=== PATIENT | male | born 1990 | race Caucasian/White ===

== ENCOUNTER 2018-11-04 00:09 | Emergency (ER) | payer SELFPAY ==
[2018-11-04 00:09] VITALS: BP 120/74; PULSE 82; RESP 16; TEMP 36.7; O2SAT 100; BMI 18.3
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
[2018-11-04 02:10] VITALS: PULSE 98; RESP 18; O2SAT 99
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
[2018-11-04 03:13] VITALS: PULSE 99; RESP 18; O2SAT 98
== END 2018-11-04 03:19 | disposition home or self-care (01) ==
LOC: ED 02:19
PROVIDERS: Emergency Provider Emergency Medicine; Family Provider Family Medicine; PCP Family Medicine
DX: S02.2XXA Fracture of nasal bones, initial encounter for closed fracture (principal); S42.001A Fracture of unspecified part of right clavicle, initial encounter for closed fracture; S06.9X9A Unspecified intracranial injury with loss of consciousness of unspecified duration, initial encounter; Y04.8XXA Assault by other bodily force, initial encounter; Y93.9 Activity, unspecified; Y92.9 Unspecified place or not applicable; Y99.9 Unspecified external cause status; F10.129 Alcohol abuse with intoxication, unspecified
CPT/HCPCS: 70450; 70486; 73030; 99283

== ENCOUNTER 2024-05-07 22:08 | Emergency (ER) | payer MEDICAID, SELFPAY ==
[2024-05-07 22:09] VITALS: BP 116/73; PULSE 99; RESP 16; TEMP 36.7; O2SAT 96; BMI 22.2
--- NOTE | 2024-05-07 22:20 | CT_ITS ---
EXAM: CT HEAD WITHOUT INTRAVENOUS CONTRAST CLINICAL INDICATION: trauma TECHNIQUE: Multiple axial images were obtained of the head without intravenous contrast. This CT exam was performed using one or more of the following dose reduction techniques: automated exposure control, adjustment of the mA and/or kV according to patient size, and/or use of iterative reconstruction technique. RADIATION DOSE: Total DLP: 846.73 mGy-cm. COMPARISON: Nonenhanced cranial CT of 11/04/2018. FINDINGS: BRAIN AND EXTRA-AXIAL SPACES: Unremarkable. No intra- or extra-axial hemorrhage. No evidence of acute infarct. No intracranial mass or mass effect. There is preservation of the bosch/white matter interface. Posterior fossa structures are unremarkable. Ventricles are appropriate for age. No hydrocephalus. Basal cisterns are patent. BONES/JOINTS: Previous noted nasal bone fracture as healed with the fracture fragments in relative anatomic alignment. No discrete lytic or blastic abnormalities. No acute linear or depressed skull fracture. SOFT TISSUES: Unremarkable. No scalp hematoma. SINUSES: Incidental right maxillary retention cysts are present. No paranasal sinus air-fluid levels. MASTOID AIR CELLS: Unremarkable. Clear. ORBITS: Visualized globes, extraocular muscles, optic nerves and retrobulbar fat appear unremarkable. CT/Brain/Head without Contrast IMPRESSION: No acute findings in the head/brain. No skull fracture or acute intracranial hemorrhage. Electronically Signed: Amari Faith MD at 23:20 EST ,
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
[2024-05-08 00:23] VITALS: BP 107/73; PULSE 73; RESP 18; TEMP 36.2; O2SAT 99
== END 2024-05-08 00:24 | disposition home or self-care (01) ==
PROVIDERS: Emergency Provider Emergency Medicine; PCP Family Medicine; Referring Provider Emergency Medicine; Visit Provider Emergency Medicine
DX: S22.32XA Fracture of one rib, left side, initial encounter for closed fracture (principal); S00.83XA Contusion of other part of head, initial encounter; S10.91XA Abrasion of unspecified part of neck, initial encounter; Y04.8XXA Assault by other bodily force, initial encounter; Z79.899 Other long term (current) drug therapy

== ENCOUNTER 2024-10-30 12:18 | Emergency (ER) | payer BC, MEDICAID, SELFPAY ==
[2024-10-30 12:19] VITALS: BP 112/67; PULSE 76; RESP 14; TEMP 36.6; O2SAT 98; BMI 19.8
--- NOTE | 2024-10-30 13:34 | EX.ED.VIS.PS ---
HPI HPI - Psych History of Present Illness Chief Complaint: Suicidal Informant: patient Onset/Context/Timing Onset: Days (3) Context: Sudden Onset Timing: Intermittent Worsened by: Situational factors Relieved by: nothing Associated Symptoms Associated Symptoms - Psych: Positive for Depressed and Suicidal Thoughts; Negative for Confusion, Paranoia, Visual Hallucinations or Auditory Hallucinations Specific plan (suicidal thought): Hanging himself Narrative Narrative: Patient struggles with depression and suicidal ideations that have been getting worse over the past 3 days. Patient states they have been intermittent. Patient states he had a dream about his dad. Patient states it is brought on his suicidal thoughts. Patient states he was able to get through the day and then had another dream about his dad at night. Patient states that he been having thoughts of hanging himself. Patient states he will not do that but he has been having more thoughts. Patient denies any paranoid ideations. Patient denies any visual or auditory hallucinations. [facility] Medical History (Updated 10/30/24 @ 16:[address] Steven Calderon, ) Bipolar disorder Depression Anxiety Home Medications ?Medication ?Instructions ?Recorded ?Last Taken ?Type alprazolam 0.25 mg tablet 0.25 mg PO BID 05/07/24 Unknown History buprenorphine 8 mg-naloxone 2 mg 2 ea sublingual DAILY 05/07/24 Unknown History sublingual film fluoxetine 40 mg capsule 40 mg PO DAILY 05/07/24 Unknown History gabapentin 800 mg tablet 800 mg PO TID 05/07/24 Unknown History Allergy/AdvReac Type Severity Reaction Status Date / Time No Known Allergies Allergy Verified 10/30/24 12:19 Social History (Updated 10/30/24 @ 13:[address] Steven Calderon, ) Smoking Status: Unknown if ever smoked Electronic Cigarette Use: with nicotine ROS ROS ED Constitutional Constitutional ED: Denies chills or fever(s) Eyes Eyes: Denies blurry vision or change in vision ENT ENT ED: Denies rhinorrhea or sore throat Cardiovascular Cardiovascular: Denies chest pain or palpitations Respiratory/Chest Respiratory/Chest: Denies cough or dyspnea Gastrointestinal Gastrointestinal: Denies nausea or vomiting Genitourinary Genitourinary ED: Denies dysuria or hematuria Musculoskeletal Musculoskeletal: Denies back pain or neck pain Integumentary Denies abscess or rash Neurologic Neurologic: Denies headache(s) or weakness Psychiatric Psychiatric: Reports suicidal ideation and suicidal thoughts Allergic/Immunologic Allergic/Immunologic ED: Denies mouth swelling or urticaria EXAM Physical Exam Const Vital Signs: 10/30/24 12:19 10/30/24 14:14 Temperature 98 F Temperature Source Temporal Pulse Rate 76 78 Respiratory Rate 14 16 Blood Pressure 112/67 134/78 H Blood Pressure Mean 82 96 Pulse Ox 98 98 Oxygen Delivery Method Room Air Room Air Positive well nourished and well developed General Appearance ED: well developed and NAD HEENT Reports moist mucous membranes normocephalic and atraumatic Neck supple and no JVD Resp normal respiratory effort and clear to auscultation bilaterally Cardio Rate: regular rate Rhythm: regular rhythm GI non-tender and non-distended Neuro oriented x3, CN's II-XII intact bilaterally and no sensory deficits noted [place] Coma Scale: document GCS findings Spontaneous Obeys Commands Oriented 15 Sensorium / Orientation: alert Motor Exam: strength 5/5 throughout, muscle tone normal throughout and general weakness Psych Appearance: grossly normal Attitude: calm Speech: normal speech Mood & Affect: depressed and tearful Thought Content: suicidality, No delusion(s) and No hallucination(s) MDM MDM MDM Narrative Medical decision making narrative: Medical screening labs will be obtained. CBC will be obtained to assess for leukocytosis and anemia. Basic metabolic profile will be obtained to assess for electrolyte abnormality and renal function. Serum alcohol level will be obtained to assess for alcohol intoxication. Urine drug screen will be obtained to assess for substance abuse. Lab Data Attestation: I reviewed the patient's lab results. Lab results narrative: CBC was reviewed. There is a slight anemia with a hemoglobin of 12.8 and hematocrit of 39.7. Basic metabolic profile was reviewed and was essentially within normal limits. Serum alcohol level was reviewed and was less than 10.1. Urine tox screen was reviewed and was positive for amphetamines and buprenorphine. Labs: Laboratory Results - last 24 hr 10/30/24 10/30/24 13:03 13:05 WBC 3.8 L RBC 4.39 L Hgb 12.8 L Hct 39.7 L MCV 90.4 MCH 29.2 MCHC 32.2 RDW Std Deviation 41.8 RDW Coeff of Sheela 12.5 Plt Count 253 MPV 10.5 Immature Gran % (Auto) 0.300 Neut % (Auto) 58.4 Lymph % (Auto) 30.9 [place] % (Auto) 7.5 Eos % (Auto) 2.1 Baso % (Auto) 0.8 Absolute Neuts (auto) 2.2 Absolute Lymphs (auto) 1.16 Nucleated RBC % 0 Sodium 143 Potassium 4.2 Chloride 104 Carbon Dioxide 28.3 Anion Gap 11 BUN 9 Creatinine 0.86 Estim Creat Clear Calc 104.43 Est GFR (MDRD) Non-Af 117 BUN/Creatinine Ratio 10.9 Glucose 83 Calcium 9.2 Urine Opiates Screen NEGATIVE U Buprenorphine Qual PRESUMPTIVE POSITIVE Ur Oxycodone Screen NEGATIVE Urine Methadone Screen NEGATIVE Urine Fentanyl Screen NEGATIVE Ur Barbiturates Screen NEGATIVE Ur Phencyclidine Scrn NEGATIVE Ur Amphetamines Screen PRESUMPTIVE POSITIVE U Benzodiazepines Scrn NEGATIVE Urine Cocaine Screen NEGATIVE U Cannabinoids Screen NEGATIVE Ethyl Alcohol < 10.1 Treatment and Re-Evaluation Narrative: Suicide precautions were maintained. Patient was evaluated by social organization professor. janitorial maintenance worker feels the patient can be discharged home and arrange for follow-up as an outpatient. I am agreeable with this. Patient was instructed to follow-up next week. Patient and family understand and are agreeable with the plan. All questions were answered. Discharge Plan Triage Chief Complaint: Suicidal ED Provider: Steven Calderon Dx/Rx/DC Orders Clinical Impression: Depression, Anxiety Instructions: ED Depression Prescriptions: No Action fluoxetine 40 mg capsule 40 mg PO DAILY alprazolam 0.25 mg tablet 0.25 mg PO BID gabapentin 800 mg tablet 800 mg PO TID buprenorphine-naloxone 8-2 mg film 2 ea sublingual DAILY Primary Care Provider: Roman Ulrich Referrals: Roman Ulrich MD [Primary Care Provider] - 3-5 Days Print Language: Irish Disposition Disposition: Home, Self Care
[2024-10-30 13:53] LABS: Hematocrit 39.7 % (40-54); Hemoglobin 12.8 g/dL (13.0-16.5); Immature Granulocytes Count 0.010 X10^3/uL (0.0-0.0); Mean Corp Hgb Conc 32.2 g/dL (32-36); Mean Corpuscular Volume 90.4 fL (80-94); Mean Platelet Vol. 10.5 fl (6.2-12.0); NRBC Flagged by Analyzer 0 % (0-5); Platelet Count 253 K/mm3 (150-450); RBC Distribution Width CV 12.5 % (11.6-14.6); RBC Distribution Width SD 41.8 fl (35.1-43.9); Red Blood Count 4.39 M/mm3 (4.6-6.2); White Blood Count 3.8 K/mm3 (4.4-11.0)
[2024-10-30 14:14] VITALS: BP 134/78; PULSE 78; RESP 16; O2SAT 98
[2024-10-30 14:22] LABS: Anion Gap 11 (5-15); BUN 9 mg/dL (4-19); BUN/Creat Ratio 10.9 RATIO (10-20); Calcium,Total 9.2 mg/dL (7.6-11.0); Carbon Dioxide 28.3 mmol/L (21.0-32.0); Chloride 104 mmol/L (98-108); Estimated Creatinine Clearance 104.43 ml/min (50-250); Glucose 83 mg/dL (70-99); Potassium 4.2 mmol/L (3.3-5.1)
[2024-10-30 14:23] LABS: Alcohol, Blood (Medical)-Serum < 10.1 mg/dL (<=10.0)
[2024-10-30 15:37] LABS: Barbiturate Urine NEGATIVE (< 200 ng/mL); Benzodiazepine Urine NEGATIVE (< 200 ng/mL); PCP Urine NEGATIVE (< 25 ng/mL); THC Urine NEGATIVE (< 50 ng/mL)
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
[2024-10-30 16:25] VITALS: BP 111/71; PULSE 81; RESP 14; TEMP 36.6; O2SAT 98
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
--- NOTE | 2024-10-31 20:30 | CM.ED ---
Social Work Unsuccessful 24 hour phone contact with patient per Safety Plan protocol. No answer. Ammonia Box Operator left a message with her name and number and requested a return call (19:28 and again 20:32) ALVARO Diallo, GUEST SERVICE TEAM LEADER
--- NOTE | 2024-11-01 17:25 | CM.ED ---
Social Work research worker kitchen made an unsuccessful phone contact with patient per on-going efforts per safety plan protocol. Highwall Drill Operator left a message with her name and number and requested a return call. (14:10) research worker kitchen made an unsuccessful phone contact with patient per on-going efforts per safety plan protocol. Highwall Drill Operator left a message with her name and number and requested a return call. (16:47) Highwall Drill Operator made phone contact with [facility]. Highwall Drill Operator requested a welfare check for patient due to unanswered calls/no return calls to Highwall Drill Operator (16:47) Highwall Drill Operator received a call from law enforcement who made successful phone contact with patient and put patient on the phone. Highwall Drill Operator explained why she was calling. Patient stated he feels safe, stated he's been taking his medication and has been sleeping a lot and is looking forward to going back to work tomorrow. Patient denied any current suicidal ideation, and confirmed he is safe. Highwall Drill Operator reviewed crisis numbers with patient and also advised patient he can come back to the ED if he ever feels like he needs to. No other concerns/issues identified. (17:27) Heather Lock, THERMOSCREW OPERATOR, STRUCTURAL IRON WORKER
== END 2024-10-30 16:26 | disposition home or self-care (01) ==
PROVIDERS: Emergency Provider Emergency Medicine; PCP Family Medicine; Referring Provider Emergency Medicine; Visit Provider Emergency Medicine
DX: F32.A Depression, unspecified (principal); R45.851 Suicidal ideations; F41.9 Anxiety disorder, unspecified; F17.290 Nicotine dependence, other tobacco product, uncomplicated; Z79.899 Other long term (current) drug therapy
CPT/HCPCS: 80048; 80307; 82077; 85025; 99283

== ENCOUNTER 2025-02-01 03:57 | Emergency (ER) | payer BC, MEDICAID, SELFPAY ==
[2025-02-01 03:57] VITALS: BP 157/95; PULSE 67; RESP 18; TEMP 36.6; O2SAT 98; BMI 18.8
[2025-02-01 04:00] VITALS: BP 144/100; PULSE 72; RESP 18; TEMP 36.6; O2SAT 100
--- NOTE | 2025-02-01 04:24 | EX.ED.DYSGE1 ---
HPI History of Present Illness Chief Complaint: Other, Pain/Inj Informant: patient and parent Narrative Narrative: Patient is a 34-year-old male with past medical history of anxiety and depression as well as bipolar disorder. He states there was a lump above his tooth that opened up yesterday and drained foul tasting discharge. He states he then noticed a lesion and swelling along his lower lip as well as a lesion along the cheek and tongue. He denies any known sick contacts. He denies any difficulty breathing or swallowing. He states that he is concerned that these areas are infectious and with this presents for evaluation. [facility] Medical History (Updated 02/01/25 @ 08:[address] Wallace Browne, DO) Bipolar disorder Depression Anxiety Home Medications ?Medication ?Instructions ?Recorded ?Last Taken ?Type alprazolam 0.25 mg tablet 0.25 mg PO BID 05/07/24 Unknown History buprenorphine 8 mg-naloxone 2 mg 2 ea sublingual DAILY 05/07/24 Unknown History sublingual film fluoxetine 40 mg capsule 40 mg PO DAILY 05/07/24 Unknown History gabapentin 800 mg tablet 800 mg PO TID 05/07/24 Unknown History MAGIC MOUTH WASH (BMX) 180 mL 10 ml PO 4X/DAY PRN mouth pain 02/01/25 Unknown Rx suspension #180 mL amoxicillin 875 mg-potassium 1 tab PO BID 10 days #20 tabs 02/01/25 Unknown Rx clavulanate 125 mg tablet duloxetine 60 mg capsule,delayed 60 mg PO DAILY 02/01/25 Unknown History release Allergy/AdvReac Type Severity Reaction Status Date / Time No Known Allergies Allergy Verified 02/01/25 03:57 Social History (Updated 10/30/24 @ 13:[address] Steven Calderon, DO) Smoking Status: Current every day smoker tobacco type: e-cigarettes Electronic Cigarette Use: with nicotine ROS ROS ED Constitutional Constitutional ED: Denies chills or fever(s) ENT ENT ED: Reports sore throat and other Details: Positive dental pain and oral lesions Cardiovascular Cardiovascular: Denies chest pain Respiratory/Chest Respiratory/Chest: Denies cough or dyspnea Gastrointestinal Gastrointestinal: Denies abdominal pain, diarrhea, nausea or vomiting Musculoskeletal Musculoskeletal: Denies myalgias Integumentary Denies rash Neurologic Neurologic: Denies headache(s) Psychiatric Psychiatric: Reports anxiety and depression Allergic/Immunologic Allergic/Immunologic ED: Denies mouth swelling, tongue swelling or urticaria EXAM Physical Exam Const Vital Signs: 02/01/25 03:57 02/01/25 03:57 02/01/25 04:00 Temperature 98 F 98 F Temperature Source Oral Oral Pulse Rate 67 72 Respiratory Rate 18 18 Respiratory Effort Normal Non-Labored Respiratory Pattern Normal Blood Pressure 157/95 H 144/100 H Blood Pressure Mean 115 114 Pulse Ox 98 100 Oxygen Delivery Method Room Air Room Air 02/01/25 04:27 Temperature 98.2 F Temperature Source Pulse Rate 60 Respiratory Rate 16 Respiratory Effort Respiratory Pattern Blood Pressure 139/89 H Blood Pressure Mean 105 Pulse Ox 100 Oxygen Delivery Method Positive well nourished and well developed General Appearance ED: well developed HEENT HEENT Narrative: Multiple dental caries are present. In the left upper gingiva there is a small area of soft tissue swelling with scant amount of drainage consistent with dental abscess. No airway edema or compromise No signs of ANUG Patient has a circular slightly raised and whitish/yellow lesion to the left inner cheek along the base of the right tongue most consistent with aphthous ulcer There is also a lesion along the inner aspect of the midportion of the lower lip. This appears that at 1 point he bit his lip and now there is faint swelling and surrounding discoloration concerning for developing infection but no obvious abscess formation. Eyes PERRL and EOMs intact bilaterally General Eye ED: Negative for scleral icterus Neck supple Neck Narrative: No brawny edema in the submental space to suggest Andrae's angina Resp normal respiratory effort and clear to auscultation bilaterally Cardio regular rate and regular rhythm Back/Spine Back/Spine Narrative: Positive dextroscoliosis Extremity normal to inspection Neuro oriented x3, CN's II-XII intact bilaterally and no sensory deficits noted Sensorium / Orientation: alert Motor Exam: strength 5/5 throughout Psych Psych Narrative: Patient has a depressed/flat affect consistent history of bipolar disorder and schizophrenia Skin Skin Narrative: Patient has erythematous changes across the extensor portions of his hand as well as lower leg consistent with psoriasis which he states is chronic in nature No involvement of the palms or soles MDM MDM MDM Narrative Medical decision making narrative: Patient arrived to the ER hypertensive but otherwise with stable vitals. His history and exam is consistent with dental abscess as well as simple aphthous ulcer. He has not findings of ANUG or Andrae's angina. He does not have changes to the posterior pharynx to suggest peritonsillar abscess or retropharyngeal abscess and therefore I do not feel the need for laboratory studies or imaging. Based on the fact the abscess has spontaneously drained I do not feel the need for incision and drainage in the ER. Patient simply requires antibiotics to cover for underlying infection as well as treatment with Magic wealth wash to allow the ulcers to heal spontaneously. This plan of care was discussed with the patient and he is agreeable to it. Therefore as he does not have findings concerning for systemic infection Andrae's angina or ANUG and there are no obvious findings to suggest airway compromise or peritonsillar abscess or epiglottitis do not feel the need for further intervention and he is otherwise safe for discharge History & Record Review Discussion w/independent historian: Patient and Family Discharge Plan Triage Chief Complaint: Other, Pain/Inj ED Provider: Wallace Browne Dx/Rx/DC Orders Clinical Impression: Dental abscess, Aphthous ulcer of mouth, Anxiety, Depression, Bipolar disorder Instructions: Dental Abscess, ED Canker Sore Prescriptions: New amoxicillin-pot clavulanate 875-125 mg tablet 1 tab PO BID 10 Days Qty: 20 0RF MAGIC MOUTH WASH (BMX) 180 mL suspension 10 ml PO 4X/DAY PRN (Reason: mouth pain) Qty: 180 1RF Rx Instructions: diphenhydramine 12.5 mg/5 mL oral liquid 60 mL; aluminum-mag hydroxide-simethicone 400 mg-400 mg-40 mg/5 mL oral susp 60 mL; Lidocaine Viscous 2 % mucosal solution 60 mL; Per 180 mL No Action duloxetine 60 mg capsule,delayed release(DR/EC) 60 mg PO DAILY fluoxetine 40 mg capsule 40 mg PO DAILY alprazolam 0.25 mg tablet 0.25 mg PO BID gabapentin 800 mg tablet 800 mg PO TID buprenorphine-naloxone 8-2 mg film 2 ea sublingual DAILY Primary Care Provider: Roman Ulrich Referrals: Roman Ulrich MD [Primary Care Provider, Medical] Activity Restrictions/Additional Instructions: Your history and exam is consistent with a dental abscess and now developing right lower lip infection. Take the antibiotic/Augmentin as directed to help resolve this. It would typically take 2 to 3 days before the antibiotic takes effect. The other lesions are known as aphthous ulcers and use the Magic mouthwash to help with pain from them. Return to the ER should you have any further concerns or worsening of symptoms Print Language: Yi Disposition Disposition: Home, Self Care Discharge Date/Time: 02/01/25 04:42
[2025-02-01 04:27] VITALS: BP 139/89; PULSE 60; RESP 16; TEMP 36.8; O2SAT 100
[2025-02-01] MEDS: BMX LIQUID 180 ML 15 ML PO (04:39)
== END 2025-02-01 04:42 | disposition home or self-care (01) ==
PROVIDERS: Emergency Provider Emergency Medicine; PCP Family Medicine; Visit Provider Emergency Medicine
DX: K04.7 Periapical abscess without sinus (principal); F31.9 Bipolar disorder, unspecified; K12.0 Recurrent oral aphthae; K02.9 Dental caries, unspecified; F41.9 Anxiety disorder, unspecified; F17.290 Nicotine dependence, other tobacco product, uncomplicated; Z79.899 Other long term (current) drug therapy
CPT/HCPCS: 99283

== ENCOUNTER 2025-02-16 11:41 | Emergency (ER) | payer BC, MEDICAID, SELFPAY ==
[2025-02-16 11:43] VITALS: PULSE 54; RESP 18; TEMP 37.1; O2SAT 100; BMI 19.1
[2025-02-16 11:47] VITALS: BP 128/85
--- NOTE | 2025-02-16 11:49 | CT_ITS ---
PROCEDURE: CT/Abdomen/Pelvis W IV Cont ONLY
--- NOTE | 2025-02-16 11:50 | ED.VIS.GI ---
HPI HPI - GI History of Present Illness Chief Complaint: Abd Pain Informant: patient and EMS Narrative Narrative: Patient is a 34-year-old male with a history of bipolar disorder and paranoid schizophrenia presenting with abdominal pain, diarrhea, and emesis. - Symptoms began 3d ago with n/v/d, with abdominal pain starting today. - Reports 5-10 episodes of watery diarrhea total since onset, with the last bowel movement 2 days ago. - Denies hematochezia or hematemesis. - Denies fever. - Denies chest pain. - Denies pain radiating to the back or testicles. - Denies any prior abdominal surgeries. States has history of kidney stones and some of this pain felt similar to that but different. - Taking gabapentin. PFSH PFS Medical History Bipolar disorder Depression Anxiety Home Medications ?Medication ?Instructions ?Recorded ?Last Taken ?Type alprazolam 0.25 mg tablet 0.25 mg PO BID 05/07/24 Unknown History buprenorphine 8 mg-naloxone 2 mg 2 ea sublingual DAILY 05/07/24 Unknown History sublingual film fluoxetine 40 mg capsule 40 mg PO DAILY 05/07/24 Unknown History gabapentin 800 mg tablet 800 mg PO TID 05/07/24 Unknown History MAGIC MOUTH WASH (BMX) 180 mL 10 ml PO 4X/DAY PRN mouth pain 02/01/25 Unknown Rx suspension #180 mL amoxicillin 875 mg-potassium 1 tab PO BID 10 days #20 tabs 02/01/25 Unknown Rx clavulanate 125 mg tablet duloxetine 60 mg capsule,delayed 60 mg PO DAILY 02/01/25 Unknown History release ondansetron 8 mg disintegrating 8 mg PO Q8H PRN nausea and 02/16/25 Unknown Rx tablet vomiting #20 tabs oxycodone-acetaminophen 5 mg-325 1 tab PO Q6H PRN PRN Pain 3 days 02/16/25 Unknown Rx mg tablet #12 TABLETS Allergy/AdvReac Type Severity Reaction Status Date / Time No Known Allergies Allergy Verified 02/16/25 11:42 Social History Smoking Status: Current every day smoker tobacco type: e-cigarettes Electronic Cigarette Use: with nicotine ROS ROS ED Constitutional Constitutional ED: Denies chills or fever(s) Eyes Eyes: Denies change in vision or diplopia ENT ENT ED: Denies rhinorrhea or sore throat Cardiovascular Cardiovascular: Denies chest pain or palpitations Respiratory/Chest Respiratory/Chest: Denies cough or dyspnea Gastrointestinal Gastrointestinal: Reports abdominal pain, diarrhea, nausea and vomiting; Denies hematemesis, hematochezia or melena Genitourinary Genitourinary ED: Denies dysuria or hematuria Musculoskeletal Musculoskeletal: Denies back pain or neck pain Integumentary Denies abscess or rash Neurologic Neurologic: Denies headache(s), paresthesias or weakness Psychiatric Psychiatric: Reports anxiety; Denies suicidal thoughts EXAM Physical Exam Const Vital Signs: 02/16/25 11:43 02/16/25 11:47 Temperature 98.8 F Temperature Source Oral Pulse Rate 54 L Respiratory Rate 18 Blood Pressure 128/85 H Blood Pressure Mean 99 Pulse Ox 100 Oxygen Delivery Method Room Air Positive well nourished and well developed Constitutional Narrative: Uncomfortable in mild painful distress General Appearance ED: well developed HEENT Reports moist mucous membranes normocephalic and atraumatic Eyes PERRL and EOMs intact bilaterally Neck full ROM and supple Resp normal respiratory effort and clear to auscultation bilaterally Cardio regular rate, regular rhythm and no murmurs GI non-distended GI Narrative: Tender left mid abdomen the left upper quadrant, nontender in the distal left lower quadrant. Auscultation: hypoactive bowel sounds Palpation: soft Back/Spine Back/Spine Narrative: Mild left CVA tenderness no rash normal inspection no swelling General Back: other FROM Extremity normal to inspection General Extremety ED: Negative for edema, pulses abnormal or tenderness General Extremity: Negative for edema or pulses abnormal Neuro oriented x3, CN's II-XII intact bilaterally and no sensory deficits noted Sensorium / Orientation: awake and alert Motor Exam: strength 5/5 throughout Psych Psych Narrative: Agitated and anxious but able to cooperate and follow commands Skin no rashes or lesions noted and no wounds MDM MDM MDM Narrative Medical decision making narrative: Considering possible GI etiologies for his left-sided abdominal pain, given that he has vomiting and diarrhea, as well as a possible kidney stone due to his prior history, we obtained labs and performed a CT while treating his symptoms with Toradol and Reglan. On reevaluation, he is doing much better and tolerating oral fluids. His blood work is normal, including liver enzymes and kidney function. His urine shows microscopic hematuria without signs of infection. The IV contrast CT shows no evidence of colitis, bowel obstruction, diverticulitis, or perforation, but there is a 4.5 mm obstructing proximal left ureteral stone, which I suspect is causing his symptoms. The diarrhea was probably a red flores. He is doing well, and I think he can be treated with expectant management as an outpatient. He saw urology in the past and may have had operative management of a stone, possibly a stent, about five years ago. He is not entirely certain. I am giving him contact information for urology. We discussed reasons to return, but for now, we will provide prescriptions for pain medication, nausea medication, and a strainer. He is comfortable with this plan. Lab Data Attestation: I reviewed the patient's lab results. Labs: Laboratory Results - last 24 hr 02/16/25 02/16/25 12:03 12:05 WBC 7.4 RBC 4.34 L Hgb 12.6 L Hct 38.2 L MCV 88.0 MCH 29.0 MCHC 33.0 RDW Std Deviation 38.9 RDW Coeff of Sheela 12.0 Plt Count 258 MPV 10.4 Immature Gran % (Auto) 0.700 Neut % (Auto) 58.3 Lymph % (Auto) 29.8 [place] % (Auto) 5.4 Eos % (Auto) 5.3 H Baso % (Auto) 0.5 Absolute Neuts (auto) 4.3 Absolute Lymphs (auto) 2.21 Nucleated RBC % 0 Sodium 141 Potassium 3.3 Chloride 99 Carbon Dioxide 30.4 Anion Gap 11 BUN 9 Creatinine 0.81 Estim Creat Clear Calc 105.86 Est GFR (MDRD) Non-Af 118 BUN/Creatinine Ratio 11.5 Glucose 137 H Calcium 8.8 Total Bilirubin 0.17 AST 20 ALT 14 Alkaline Phosphatase 93 Total Protein 6.7 Albumin 4.3 Globulin 2.4 Albumin/Globulin Ratio 1.8 Urine Color Yellow Urine Clarity Clear Urine pH 7.0 Ur Specific [place]sser 1.015 Urine Protein 100 H Urine Glucose (UA) Normal Urine Ketones Negative Urine Occult Blood 250 H Urine Nitrite Negative Urine Bilirubin Negative Urine Urobilinogen Normal Ur Leukocyte Esterase 25 H Urine RBC > 100 SEEN Urine WBC 0-5 SEEN Ur Squamous Epith Cells 0 SEEN Calcium Oxalate Crystal RARE Urine Bacteria 0 SEEN Urine Mucus 0 SEEN Radiography Diagnostic Testing: Clinical Impression(s) from Imaging Studies Abdomen/Pelvis CT 02/16/25 11:49 IMPRESSION: Minimal degree of intrahepatic biliary ductal dilatation. No evidence of gallstones. Calcification of the vas deferens. This is typically seen in patients with diabetes. Reading Location: [facility] I reviewed the images, I agree with the radiologist interpretation as well as his addendum which includes a 4.5 mm left proximal ureteral obstructing stone with mild hydronephrosis Discharge Plan Triage Chief Complaint: Abd Pain ED Provider: Bob Polo Dx/Rx/DC Orders Clinical Impression: Renal colic on left side, Ureterolithiasis, Acute diarrhea Instructions: ED Urine Strainer, ED Kidney Stone with Pain Prescriptions: New ondansetron 8 mg tablet,disintegrating 8 mg PO Q8H PRN (Reason: nausea and vomiting) Qty: 20 0RF oxycodone-acetaminophen 5-325 mg tablet 1 tab PO Q6H PRN PRN (Reason: Pain) 3 Days Qty: 12 0RF No Action duloxetine 60 mg capsule,delayed release(DR/EC) 60 mg PO DAILY amoxicillin-pot clavulanate 875-125 mg tablet 1 tab PO BID 10 Days Qty: 20 0RF MAGIC MOUTH WASH (BMX) 180 mL suspension 10 ml PO 4X/DAY PRN (Reason: mouth pain) Qty: 180 1RF Rx Instructions: diphenhydramine 12.5 mg/5 mL oral liquid 60 mL; aluminum-mag hydroxide-simethicone 400 mg-400 mg-40 mg/5 mL oral susp 60 mL; Lidocaine Viscous 2 % mucosal solution 60 mL; Per 180 mL fluoxetine 40 mg capsule 40 mg PO DAILY alprazolam 0.25 mg tablet 0.25 mg PO BID gabapentin 800 mg tablet 800 mg PO TID buprenorphine-naloxone 8-2 mg film 2 ea sublingual DAILY Primary Care Provider: Roman Ulrich Referrals: Lex Shannon MD [Med Staff - Active Staff, Urology] - 1 Week if not improving Print Language: Hungarian Disposition Disposition: Home, Self Care
[2025-02-16] MEDS: 0.9% Normal Saline (1000mL) 1,000 ML 999 ML IV (12:07)
[2025-02-16] MEDS: Ketorolac 30 MG/ML Syringe IV (12:07)
[2025-02-16 12:18] LABS: Mucous, Urine 0 SEEN /hpf (<or=2+); Squamous Epithelial Cells - UA 0 SEEN /hpf (0-5)
[2025-02-16 12:19] LABS: Color, Urine Yellow (Yellow); Glucose, Dipstick Normal (Normal); Ketone-Dipstick Negative (Negative); Leukocyte Esterase-Dipstick 25 /ul (Negative); Nitrite-Dipstick Negative (Negative); Occult Blood-Urine 250 /ul (Negative); Protein-Dipstick 100 mg/dl (Negative); Specific Gravity, Urine 1.015 (1.002-1.030); Urine Bilirubin Dipstick Negative (Negative)
[2025-02-16 12:25] LABS: Calcium Oxalate Crystals Ur RARE /hpf (<or=2+); Red Blood Cells-Urine > 100 SEEN /hpf (0-5)
[2025-02-16 12:34] LABS: Hematocrit 38.2 % (40-54); Hemoglobin 12.6 g/dL (13.0-16.5); Immature Granulocytes Count 0.050 X10^3/uL (0.0-0.0); Mean Corp Hgb Conc 33.0 g/dL (32-36); Mean Corpuscular Volume 88.0 fL (80-94); Mean Platelet Vol. 10.4 fl (6.2-12.0); NRBC Flagged by Analyzer 0 % (0-5); Platelet Count 258 K/mm3 (150-450); RBC Distribution Width CV 12.0 % (11.6-14.6); RBC Distribution Width SD 38.9 fl (35.1-43.9); Red Blood Count 4.34 M/mm3 (4.6-6.2); White Blood Count 7.4 K/mm3 (4.4-11.0)
[2025-02-16 13:03] LABS: AST(SGOT) 20 U/L (<=37); Alanine Aminotransfer ALT/SGPT 14 U/L (<=46); Albumin, Serum 4.3 g/dL (3.5-5.0); Alkaline Phosphatase 93 U/L (40-129); Anion Gap 11 (5-15); BUN 9 mg/dL (4-19); BUN/Creat Ratio 11.5 RATIO (10-20); Calcium,Total 8.8 mg/dL (7.6-11.0); Carbon Dioxide 30.4 mmol/L (21.0-32.0); Chloride 99 mmol/L (98-108); Estimated Creatinine Clearance 105.86 ml/min (50-250); Glucose 137 mg/dL (70-99); Potassium 3.3 mmol/L (3.3-5.1)
[2025-02-16 13:07] LABS: Globulin 2.4 g/dL (2.2-4.2)
[2025-02-16 13:28] VITALS: BP 128/85; PULSE 54; RESP 18; TEMP 37.1; O2SAT 100
== END 2025-02-16 13:34 | disposition home or self-care (01) ==
PROVIDERS: Emergency Provider Emergency Medicine; PCP Family Medicine; Visit Provider Emergency Medicine
DX: N20.1 Calculus of ureter (principal); F20.0 Paranoid schizophrenia; F31.9 Bipolar disorder, unspecified; R31.29 Other microscopic hematuria; R19.7 Diarrhea, unspecified; F17.290 Nicotine dependence, other tobacco product, uncomplicated; Z79.899 Other long term (current) drug therapy; Z87.442 Personal history of urinary calculi
CPT/HCPCS: 74177; 80053; 81001; 85025; 96361; 96374; 96375; 99285; Q9967; A4216

== ENCOUNTER 2025-02-17 06:35 | Observation (INO) | payer MEDICAID, SELFPAY ==
[2025-02-17] VITALS (14 sets, daily range): BP systolic 109–147; BP diastolic 73–97; PULSE 50–82; RESP 16–19; TEMP 36.3–36.9; O2SAT 99–100; BMI 20.5
--- NOTE | 2025-02-17 06:48 | EX.ED.DYSGE1 ---
HPI History of Present Illness Chief Complaint: Flank Pain Informant: patient Narrative Narrative: Patient is a 34-year-old male with history of schizophrenia and bipolar disorder. He was seen yesterday secondary to left-sided abdominal pain and was found to have a 4.5 mm stone in the left proximal ureter causing mild hydronephrosis. He did not have signs of urosepsis or acute kidney injury so he was discharged home on Percocet and Zofran. Patient states he has been taking his Percocet but his pain has not really improved despite doing so. Therefore with the persistent pain despite taking his prescribed medication he presents for reevaluation. [facility] Medical History Bipolar disorder Depression Anxiety Home Medications ?Medication ?Instructions ?Recorded ?Last Taken ?Type buprenorphine 8 mg-naloxone 2 mg 2 ea sublingual DAILY 05/07/24 Unknown History sublingual film fluoxetine 40 mg capsule 40 mg PO DAILY 05/07/24 Unknown History gabapentin 800 mg tablet 800 mg PO TID 05/07/24 Unknown History MAGIC MOUTH WASH (BMX) 180 mL 10 ml PO 4X/DAY PRN mouth pain 02/01/25 Unknown Rx suspension #180 mL duloxetine 60 mg capsule,delayed 60 mg PO DAILY 02/01/25 Unknown History release ondansetron 8 mg disintegrating 8 mg PO Q8H PRN nausea and 02/16/25 Unknown Rx tablet vomiting #20 tabs oxycodone-acetaminophen 5 mg-325 1 tab PO Q6H PRN PRN Pain 3 days 02/16/25 Unknown Rx mg tablet #12 TABLETS Allergy/AdvReac Type Severity Reaction Status Date / Time No Known Allergies Allergy Verified 02/17/25 06:35 Social History Smoking Status: Current every day smoker tobacco type: e-cigarettes Electronic Cigarette Use: with nicotine ROS ROS ED Constitutional Constitutional ED: Denies chills or fever(s) ENT ENT ED: Denies sore throat Cardiovascular Cardiovascular: Denies chest pain Respiratory/Chest Respiratory/Chest: Denies cough or dyspnea Gastrointestinal Gastrointestinal: Reports abdominal pain and nausea; Denies diarrhea or vomiting Genitourinary Genitourinary ED: Reports hematuria; Denies dysuria Musculoskeletal Musculoskeletal: Denies myalgias Integumentary Denies rash Neurologic Neurologic: Denies headache(s) Hematologic/Lymphatic Hematologic/Lymphatic: Denies easy bleeding or easy bruising EXAM Physical Exam Const Vital Signs: 02/17/25 06:36 Temperature 98.4 F Temperature Source Oral Pulse Rate 68 Respiratory Rate 18 Blood Pressure 147/97 H Blood Pressure Mean 113 Pulse Ox 100 Oxygen Delivery Method Room Air Positive well nourished and well developed General Appearance ED: well developed; Negative for pallor HEENT HEENT Narrative: Normocephalic atraumatic Eyes PERRL and EOMs intact bilaterally General Eye ED: Negative for scleral icterus Neck supple Resp normal respiratory effort and clear to auscultation bilaterally Cardio regular rate and regular rhythm Rate: other Other Details: Radial and carotid pulses are equal and symmetric GI non-distended and no masses GI Narrative: Abdomen is soft and nondistended with hypoactive bowel sounds. There is pain with palpation in the left lower quadrant without voluntary guarding or rigidity. This is the same location he reported pain yesterday when he was diagnosed with his kidney stone. No pulsatile mass. no peritoneal signs No organomegaly to suggest acute urinary retention Auscultation: hypoactive bowel sounds Palpation: soft Back/Spine Back/Spine Narrative: Positive left CVA pain noted Extremity normal to inspection Neuro oriented x3, CN's II-XII intact bilaterally and no sensory deficits noted Sensorium / Orientation: alert Motor Exam: strength 5/5 throughout Psych Psych Narrative: Patient has a flat affect Skin no rashes or lesions noted General Skin Exam: Negative for jaundice or pallor MDM MDM MDM Narrative Medical decision making narrative: Patient arrived to the ER hypertensive otherwise with stable vitals. His recent ER visit as well as labs and CT scan were reviewed. With the patient having intractable pain despite taking a proper pain medication and Percocet I will provide IV Toradol which he states helped the previous day as well as IV fluid. Repeat urine sample and basic labs will be obtained to assess for urosepsis versus acute kidney injury. I do not feel the need to repeat a CT scan at this time. The patient stated he had difficulty urinating today but on exam he does not have organomegaly to suggest acute urinary retention. We did perform a bladder scan in the ER and it only reported a minimal amount of urine within the bladder going against urinary retention. At this time I reached out to the urologist on-call Dr. Shannon. He states he is in house doing surgeries today and with the intractable pain we will review his previous workup and place a stent in the patient to help with his intractable discomfort. This plan of care was discussed with the patient who is agreeable to it and therefore he will be admitted to urology service for stent placement regarding his intractable pain from his proximal kidney stone History & Record Review Discussion w/independent historian: Patient Additional record(s) reviewed:: Prior ED visit and Prior labs Lab Data Attestation: I reviewed the patient's lab results. Labs: Laboratory Results - last 24 hr 02/17/25 06:51 WBC 7.1 RBC 3.83 L Hgb 11.3 L Hct 34.5 L MCV 90.1 MCH 29.5 MCHC 32.8 RDW Std Deviation 40.2 RDW Coeff of Sheela 12.3 Plt Count 198 MPV 10.3 Immature Gran % (Auto) 0.600 Neut % (Auto) 67.9 Lymph % (Auto) 21.1 [place] % (Auto) 6.3 Eos % (Auto) 3.5 Baso % (Auto) 0.6 Absolute Neuts (auto) 4.9 Absolute Lymphs (auto) 1.51 Nucleated RBC % 0 Management Discussion w/another healthcare provider: Dice Spotter Discharge Plan Dx/Rx/DC Orders Clinical Impression: Ureterolithiasis, Renal colic on left side, Intractable pain, Bipolar disorder, Paranoid schizophrenia Disposition Disposition: Acute Care [facility]
[2025-02-17] MEDS: Ketorolac 30 MG/ML Syringe IV (06:49)
[2025-02-17] MEDS: 0.9% Normal Saline (1000mL) 1,000 ML 999 ML IV (06:53)
[2025-02-17 06:58] LABS: Hematocrit 34.5 % (40-54); Hemoglobin 11.3 g/dL (13.0-16.5); Immature Granulocytes Count 0.040 X10^3/uL (0.0-0.0); Mean Corp Hgb Conc 32.8 g/dL (32-36); Mean Corpuscular Volume 90.1 fL (80-94); Mean Platelet Vol. 10.3 fl (6.2-12.0); NRBC Flagged by Analyzer 0 % (0-5); Platelet Count 198 K/mm3 (150-450); RBC Distribution Width CV 12.3 % (11.6-14.6); RBC Distribution Width SD 40.2 fl (35.1-43.9); Red Blood Count 3.83 M/mm3 (4.6-6.2); White Blood Count 7.1 K/mm3 (4.4-11.0)
[2025-02-17 07:08] LABS: Color, Urine Yellow (Yellow); Glucose, Dipstick Normal (Normal); Ketone-Dipstick 5 mg/dl (Negative); Leukocyte Esterase-Dipstick 25 /ul (Negative); Nitrite-Dipstick Negative (Negative); Occult Blood-Urine 150 /ul (Negative); Protein-Dipstick 30 mg/dl (Negative); Specific Gravity, Urine 1.020 (1.002-1.030); Urine Bilirubin Dipstick Negative (Negative)
--- NOTE | 2025-02-17 07:15 | PCM.HP.STD ---
HPI - General General Date of Service: 02/17/25 Chief Complaint: Obstructing proximal left ureteral calculus HPI Narrative HERMAN DOOLEY, is a 34 M who presents to the hospital with severe intractable pain on the left side CT scan was done yesterday he can see a stone in the proximal left ureter causing left hydronephrosis patient return to the emergency room and severe pain CAT scan was reviewed and a stone was identified. Emergency room called me bring the patient in for cystoscopy stent placement and then we will get him set up for shockwave lithotripsy to treat the kidney stone. N.p.o. for now [facility], [facility] Medical History Bipolar disorder Depression Anxiety Home Medications ?Medication ?Instructions ?Recorded ?Last Taken ?Type buprenorphine 8 mg-naloxone 2 mg 2 ea sublingual DAILY 05/07/24 Unknown History sublingual film fluoxetine 40 mg capsule 40 mg PO DAILY 05/07/24 Unknown History gabapentin 800 mg tablet 800 mg PO TID 05/07/24 Unknown History MAGIC MOUTH WASH (BMX) 180 mL 10 ml PO 4X/DAY PRN mouth pain 02/01/25 Unknown Rx suspension #180 mL duloxetine 60 mg capsule,delayed 60 mg PO DAILY 02/01/25 Unknown History release ondansetron 8 mg disintegrating 8 mg PO Q8H PRN nausea and 02/16/25 Unknown Rx tablet vomiting #20 tabs oxycodone-acetaminophen 5 mg-325 1 tab PO Q6H PRN PRN Pain 3 days 02/16/25 Unknown Rx mg tablet #12 TABLETS Allergy/AdvReac Type Severity Reaction Status Date / Time No Known Allergies Allergy Verified 02/17/25 06:35 Social History Smoking Status: Current every day smoker tobacco type: e-cigarettes Electronic Cigarette Use: with nicotine ROS Constitutional Constitutional: Denies chills, fever(s) or malaise Eyes Eyes: Denies blurry vision or change in vision ENT HEENT: Reports none Cardiovascular Cardiovascular: Denies chest pain or palpitations Respiratory/Chest Respiratory/Chest: Denies cough or shortness of breath with exertion Gastrointestinal Gastrointestinal: Denies abdominal pain, constipation or diarrhea Musculoskeletal Musculoskeletal: Denies back pain, joint stiffness or joint swelling Integumentary Integumentary: Denies dry skin, jaundice, lesions or rash Neurologic Neurologic: Denies confusion, syncope or weakness Psychiatric Psychiatric: Reports none; Denies anxiety or depression Endocrine Endocrinology: Denies excessive sweating, fatigue or flushing Hematologic/Lymphatic Hematologic/Lymphatic: Denies anemia, easy bleeding or easy bruising Vital Signs Vital Signs Vital Signs: 02/17/25 06:36 Temperature 98.4 F Temperature Source Oral Pulse Rate 68 Respiratory Rate 18 Blood Pressure 147/97 H Blood Pressure Mean 113 Pulse Ox 100 Oxygen Delivery Method Room Air Weight Weight: 63 kg Body Mass Index (BMI) 20.5 Results Lab / Micro Data 02/17/25 06:51 02/17/25 06:51 Labs: Laboratory Results - last 24 hr 02/17/25 06:51: WBC 7.1, RBC 3.83 L, Hgb 11.3 L, Hct 34.5 L, MCV 90.1, MCH 29.5, MCHC 32.8, RDW Std Deviation 40.2, RDW Coeff of Sheela 12.3, Plt Count 198, MPV 10.3, Immature Gran % (Auto) 0.600, Neut % (Auto) 67.9, Lymph % (Auto) 21.1, Gove % (Auto) 6.3, Eos % (Auto) 3.5, Baso % (Auto) 0.6, Absolute Neuts (auto) 4.9, Absolute Lymphs (auto) 1.51, Nucleated RBC % 0 Assessment & Plan Assessment/Plan (1) Ureterolithiasis: (2) Renal colic on left side: PLAN: Patient with intractable pain will admit for pain control plan for cystoscopy left stent placement today
[2025-02-17 07:17] LABS: Mucous, Urine RARE /hpf (<or=2+); Red Blood Cells-Urine 10-25 SEEN /hpf (0-5); Squamous Epithelial Cells - UA 0-5 SEEN /hpf (0-5)
[2025-02-17 07:27] LABS: Anion Gap 8 (5-15); BUN 13 mg/dL (4-19); BUN/Creat Ratio 14.0 RATIO (10-20); Calcium,Total 9.0 mg/dL (7.6-11.0); Carbon Dioxide 30.7 mmol/L (21.0-32.0); Chloride 103 mmol/L (98-108); Estimated Creatinine Clearance 97.74 ml/min (50-250); Glucose 123 mg/dL (70-99); Potassium 3.9 mmol/L (3.3-5.1)
--- OUTSIDE RECORDS SUMMARY | 2025-02-17 07:33 | XMS RPT_ITS | CCD ---
Author Organization [facility] Team Providers Care Hourly Manager Name Role Phone Carlyle Edwards Unavailable Unavailable PROVIDER, UNKNOWN Unavailable Unavailable No, PCP Unavailable Unavailable KENISHA HUTCHISON Admitting Unavailable KENISHA HUTCHISON Primary Care Unavailable BELLE ECHEVARRIA Primary Care Unavailable ELMER CLEMENTE Admitting Unavailable ELMER CLEMENTE Consulting Unavailable ELMER CLEMENTE Attending Unavailable NONE, NONE Consulting Unavailable SANJUANITA STRONG Admitting Unavailable SANJUANITA STRONG Consulting Unavailable STRONGSANJUANITA Attending Unavailable NONE, NONE Consulting Unavailable Anton [place], Roman Primary Care Unavailable Wallace Browne Attending Unavailable Anton [place], Roman Primary Care Unavailable Steven Calderon Attending Unavailable Steven Calderon Referring Unavailable EUGENE MORRISON Attending Unavailable EUGENE MORRISON Referring Unavailable Mojgan, Roman Primary Care Unavailable Reodicrio, Enoch Referring Unavailable Anton [place], Roman Primary Care Unavailable Reodica, Eonch Attending Unavailable Problems Active Problems Problem Classification Problem Date Documented Da [...] damage to nail, init] Onset: 03-27-2018 Episodic Residual codes; unclassified (1 source) Pain, unspecified; Translations: [Pain, unspecified] Onset: 02-09-2025 Episodic Substance-related disorders (2 sources) Nicotine dependence, unspecified, uncomplicated; Translations: [Nicotine dependence, unspecified, uncomplicated] Onset: 03-27-2018 Chronic Past or Other Problems Problem Classification Problem Date Documented Da te Episodic/Chronic Other injuries and conditions due to external causes (1 source) Injury, unspecified, initial encounter; Translations: [Injury, unspecified, initial encounter] Onset: 05-27-2024 Episodic Suicide and intentional self-inflicted injury (1 source) Suicidal ideations; Translations: [Suicidal ideations] Onset: 11-05-2024 Episodic Results Test Name Value Interpretation Reference Range Facility Emergency Department Summary on 02-01-2025 Emergency Department Summary [facility] Medical Records Department [address] [place] [address] Emergency Department Summary 02/01/25 MR#: [id number] Acct: [id number] Name: HERMAN DOOLEY Rep #: [id number] : 1990 34 From: Wallace Browne DO PCP: Dr. Roman Ulrich MD Status:DEP ER Location: ED HPI History of Present Illness Chief Complaint: Other, Pain/Inj Informant: patient and parent Narrative Narrative: Patient is a 34-year-old male with past medical history of anxiety and depression as well as bipolar disorder. He states there was a lump above his tooth that opened up yesterday and drained foul tasting discharge. He states he then noticed a lesion and swelling along his lower lip as well as a lesion along the cheek and tongue. He denies any known sick contacts. He denies any difficulty breathing or swallowing. He states that he is concerned that these areas are infectious and with this presents for evaluation. [facility] Medical History (Updated 02/01/25 @ 08:[address] Wallace Browne DO) Bipolar disorder Depression Anxiety Home Medications ???Medication ???Instructions ???Recorded ???Last Taken ???Type alprazolam 0.25 mg tablet 0.25 mg PO BID 05/07/24 Unknown Hi story buprenorphine 8 mg-naloxone 2 mg 2 ea sublingual DAILY 05/07/24 Unk nown History sublingual film fluoxetine 40 mg capsule 40 mg PO DAILY 05/07/24 Unknown Hi story gabapentin 800 mg tablet 800 mg PO TID 05/07/24 Unknown His tory MAGIC MOUTH WASH (BMX) 180 mL 10 ml PO 4X/DAY PRN mouth pain Unknown Rx suspension #180 mL amoxicillin 875 mg-potassium 1 tab PO BID 10 days #20 tabs 01/20 07/14 Unknown Rx clavulanate 125 mg tablet duloxetine 60 mg capsule,delayed 60 mg PO DAILY 02/01/25 Unknown Hi story release Allergy/AdvReac Type Severity Reaction Status Date / Time No Known Allergies Allergy Verified 02/01/25 03:57 Social History (Updated 10/30/24 @ 13:[address] Steven Calderon, DO) Smoking Status: Current every day smoker tobacco type: e-cigarettes Electronic Cigarette Use: with nicotine ROS ROS ED Constitutional Constitutional ED: Denies chills or fever(s) ENT ENT ED: Reports sore throat and other Details: Positive dental pain and oral lesions Cardiovascular Cardiovascular: Denies chest pain Respiratory/Chest Respiratory/Chest: Denies cough or dyspnea Gastrointestinal Gastrointestinal: Denies abdominal pain, diarrhea, nausea or vomiting Musculoskeletal Musculoskeletal: Denies myalgias Integumentary Denies rash Neurologic Neurologic: Denies headache(s) Psychiatric Psychiatric: Reports anxiety and depression Allergic/Immunologic Allergic/Immunologic ED: Denies mouth swelling, tongue swelling or urticaria EXAM Physical Exam Const Vital Signs: 02/01/25 03:57 02/01/25 03:57 02/01/25 04:00 Temperature 98 F 98 F Temperature Source Oral Oral Pulse Rate 67 72 Respiratory Rate 18 18 Respiratory Effort Normal Non-Labored Respiratory Pattern Normal Blood Pressure 157/95 H 144/100 H Blood Pressure Mean 115 114 Pulse Ox 98 100 Oxygen Delivery Method Room Air Room Air 02/01/25 04:27 Temperature 98.2 F Temperature Source Pulse Rate 60 Respiratory Rate 16 Respiratory Effort Respiratory Pattern Blood Pressure 139/89 H Blood Pressure Mean 105 Pulse Ox 100 Oxygen Delivery Method Positive well nourished and well developed General Appearance ED: well developed HEENT HEENT Narrative: Multiple dental caries are present. In the left upper gingiva there is a small area of soft tissue swelling with scant amount of drainage consistent with dental abscess. No airway edema or compromise No signs of ANUG Patient has a circular slightly raised and whitish/yellow lesion to the left inner cheek along the base of the right tongue most consistent with aphthous ulcer There is also a lesion along the inner aspect of the midportion of the lower lip. This appears that at 1 point he bit his lip and now there is faint swelling and surrounding discoloration concerning for developing infection but no obvious abscess formation. Eyes PERRL and EOMs intact bilaterally General Eye ED: Negative for scleral icterus Neck supple Neck Narrative: No brawny edema in the submental space to suggest Andrae's angina Resp normal respiratory effort and clear to auscultation bilaterally Cardio regular rate and regular rhythm Back/Spine Back/Spine Narrative: Positive dextroscoliosis Extremity normal to inspection Neuro oriented x3, CN's II-XII intact bilaterally and no sensory deficits noted Sensorium / Orientation: alert Motor Exam: strength 5/5 throughout Psych Psych Narrative: Patient has a depressed/flat affect consistent history of bipolar disorder and (more content not included)... Normal [facility] Alcohol, Blood (Medical)-Ser umon 10-30-2024 SERUM ETOH < 10.1 Normal <=10.0 [facility] Comment on above: Result Comment: This test is for medical purposes only. The legal definition of intoxication varies according to local law. Performed By: #### L 501.9100, L500.2500, L505.5000, L100.0100 #### [facility] [address] [place], [address] Basic Metabolic Profile (BMP )on 10-30-2024 BUN/CRE 10.9 RATIO Normal 10-20 [facility] Comment on above: Performed By: #### L 501.9100, L500.2500, L505.5000, L100.0100 #### [facility] [address] [place], [address] Calcium [Mass/Vol] 9.2 mg/dL Normal 7.6-11.0 [facility] Comment on above: Performed By: #### L 501.9100, L500.2500, L505.5000, L100.0100 #### [facility] [address] [place], [address] Chloride [Moles/Vol] 104 mmol/L Normal 98-108 [facility] Comment on above: Performed By: #### L 501.9100, L500.2500, L505.5000, L100.0100 #### [facility] [address] [place], [address] CO2 [Moles/Vol] 28.3 mmol/L Normal 21.0-32.0 [facility] Comment on above: Performed By: #### L 501.9100, L500.2500, L505.5000, L100.0100 #### [facility] [address] [place], [address] Creatinine [Mass/Vol] 0.86 mg/dL Normal 0.70-1.20 [facility] Comment on above: Performed By: #### L 501.9100, L500.2500, L505.5000, L100.0100 #### [facility] [address] [place], [address] ECRCL 104.43 ml/min Normal 50-250 [facility] Comment on above: Performed By: #### L 501.9100, L500.2500, L505.5000, L100.0100 #### [facility] [address] [place], [address] GAP 11 Normal 5-15 [facility] Comment on above: Performed By: #### L 501.9100, L500.2500, L505.5000, L100.0100 #### [facility] [address] [place], [address] GFR/1.73 sq M.predicted among non-blacks MDRD (S/P/Bld) [Vol rate/Area] 117 mL/min/{1.73_m2} Normal >60 [facility] Comment on above: Result Comment: mL/m in/1.73m2 CKD-EPI Creatinine Equation (2020) Performed By: #### L 501.9100, L500.2500, L505.5000, L100.0100 #### [facility] [address] [place], [address] Glucose [Mass/Vol] 83 mg/dL Normal 70-99 [facility] Comment on above: Performed By: #### L 501.9100, L500.2500, L505.5000, L100.0100 #### [facility] [address] [place], [address] Potassium [Moles/Vol] 4.2 mmol/L Normal 3.3-5.1 [facility] Comment on above: Performed By: #### L 501.9100, L500.2500, L505.5000, L100.0100 #### [facility] [address] [place], [address] Sodium [Moles/Vol] 143 mmol/L Normal 133-145 [facility] Comment on above: Performed By: #### L 501.9100, L500.2500, L505.5000, L100.0100 #### [facility] [address] [place], [address] Urea nitrogen [Mass/Vol] 9 mg/dL Normal 4-19 [facility] Comment on above: Performed By: #### L 501.9100, L500.2500, L505.5000, L100.0100 #### [facility] [address] [place], [address] CBC W/Diff, Automatedon 07- Absolute Lymph 1.16 X10 3/uL Normal 0.83-4.51 [facility] Comment on above: Performed By: #### L 501.9100, L500.2500, L505.5000, L100.0100 #### [facility] [address] [place], [address] Absolute Neut 2.2 X10 3/uL Normal 2.0-7.7 [facility] Comment on above: Performed By: #### L 501.9100, L500.2500, L505.5000, L100.0100 #### [facility] [address] [place], [address] Basophils/100 WBC (Bld) 0.8 % Normal 0-1 [facility] Comment on above: Performed By: #### L 501.9100, L500.2500, L505.5000, L100.0100 #### [facility] [address] [place], [address] Eosinophils/100 WBC (Bld) 2.1 % Normal 0-5 [facility] Comment on above: Performed By: #### L 501.9100, L500.2500, L505.5000, L100.0100 #### [facility] [address] [place], [address] Erythrocyte distribution width (RBC) [Ratio] 12.5 % Normal 11.6-14.6 [facility] Comment on above: Performed By: #### L 501.9100, L500.2500, L505.5000, L100.0100 #### [facility] [address] [place], [address] Hematocrit (Bld) [Volume fraction] 39.7 % Low 40-54 [facility] Comment on above: Performed By: #### L 501.9100, L500.2500, L505.5000, L100.0100 #### [facility] [address] [place], [address] Hemoglobin (Bld) [Mass/Vol] 12.8 g/dL Low 13.0-16.5 [facility] Comment on above: Performed By: #### L 501.9100, L500.2500, L505.5000, L100.0100 #### [facility] [address] [place], [address] IG% 0.300 Normal 0.0-0.9 [facility] Comment on above: Result Comment: IG% - Immature Granulocytes (promyelocytes, myelocytes and metamyelocytes) > 1% indicates that a LEFT SHIFT is Present. Performed By: #### L 501.9100, L500.2500, L505.5000, L100.0100 #### [facility] [address] [place], [address] Lymphocytes/100 WBC (Bld) 30.9 % Normal 19-41 [facility] Comment on above: Performed By: #### L 501.9100, L500.2500, L505.5000, L100.0100 #### [facility] [address] [place], [address] MCH (RBC) [Entitic mass] 29.2 pg Normal 27.0-32.0 [facility] Comment on above: Performed By: #### L 501.9100, L500.2500, L505.5000, L100.0100 #### [facility] [address] [place], [address] MCHC (RBC) [Mass/Vol] 32.2 g/dL Normal 32-36 [facility] Comment on above: Performed By: #### L 501.9100, L500.2500, L505.5000, L100.0100 #### [facility] [address] [place], [address] MCV (RBC) [Entitic vol] 90.4 fL Normal 80-94 [facility] Comment on above: Performed By: #### L 501.9100, L500.2500, L505.5000, L100.0100 #### [facility] [address] [place], [address] Monocytes/100 WBC (Bld) 7.5 % Normal 0-10 [facility] Comment on above: Performed By: #### L 501.9100, L500.2500, L505.5000, L100.0100 #### [facility] [address] [place], [address] Neutrophils/100 WBC (Bld) 58.4 % Normal 47-70 [facility] Comment on above: Performed By: #### L 501.9100, L500.2500, L505.5000, L100.0100 #### [facility] [address] [place], [address] Nucleated RBC (Bld) [#/Vol] 0 10*3/uL Normal 0-5 [facility] Comment on above: Performed By: #### L 501.9100, L500.2500, L505.5000, L100.0100 #### [facility] [address] [place], [address] Platelet mean volume (Bld) [Entitic vol] 10.5 fL Normal 6.2-12.0 [facility] Comment on above: Performed By: #### L 501.9100, L500.2500, L505.5000, L100.0100 #### [facility] [address] [place], [address] Platelets (Bld) [#/Vol] 253 10*3/uL Normal 150-450 [facility] Comment on above: Performed By: #### L 501.9100, L500.2500, L505.5000, L100.0100 #### [facility] [address] [place], [address] RBC (Bld) [#/Vol] 4.39 10*6/uL Low 4.6-6.2 [facility] Comment on above: Performed By: #### L 501.9100, L500.2500, L505.5000, L100.0100 #### [facility] [address] [place], [address] RDW SD 41.8 fl Normal 35.1-43.9 [facility] Comment on above: Performed By: #### L 501.9100, L500.2500, L505.5000, L100.0100 #### [facility] [address] [place], [address] WBC (Bld) [#/Vol] 3.8 10*3/uL Low 4.4-11.0 [facility] Comment on above: Performed By: #### L 501.9100, L500.2500, L505.5000, L100.0100 #### [facility] [address] [place], [address] Emergency Department Summary on 10-30-2024 Emergency Department Summary [facility] Medical Records Department [address] [place] [address] Emergency Department Summary 10/30/24 MR#: [id number] Acct: [id number] Name: HERMAN DOOLEY Rep #: [id number] : 1990 33 From: Steven Calderon DO PCP: Dr. Roman Ulrich MD Status:DEP ER Location: ED HPI HPI - Psych History of Present Illness Chief Complaint: Suicidal Informant: patient Onset/Context/Timing Onset: Days (3) Context: Sudden Onset Timing: Intermittent Worsened by: Situational factors Relieved by: nothing Associated Symptoms Associated Symptoms - Psych: Positive for Depressed and Suicidal Thoughts; Negative for Confusion, Paranoia, Visual Hallucinations or Auditory Hallucinations Specific plan (suicidal thought): Hanging himself Narrative Narrative: Patient struggles with depression and suicidal ideations that have been getting worse over the past 3 days. Patient states they have been intermittent. Patient states he had a dream about his dad. Patient states it is brought on his suicidal thoughts. Patient states he was able to get through the day and then had another dream about his dad at night. Patient states that he been having thoughts of hanging himself. Patient states he will not do that but he has been having more thoughts. Patient denies any paranoid ideations. Patient denies any visual or auditory hallucinations. [facility] Medical History (Updated 10/30/24 @ 16:[address] Steven Calderon, DO) Bipolar disorder Depression Anxiety Home Medications ???Medication ???Instructions ???Recorded ???Last Taken ???Type alprazolam 0.25 mg tablet 0.25 mg PO BID 05/07/24 Unknown Hi story buprenorphine 8 mg-naloxone 2 mg 2 ea sublingual DAILY 05/07/24 Unk nown History sublingual film fluoxetine 40 mg capsule 40 mg PO DAILY 05/07/24 Unknown Hi story gabapentin 800 mg tablet 800 mg PO TID 05/07/24 Unknown His tory Allergy/AdvReac Type Severity Reaction Status Date / Time No Known Allergies Allergy Verified 10/30/24 12:19 Social History (Updated 10/30/24 @ 13:[address] Steven Calderon, DO) Smoking Status: Unknown if ever smoked Electronic Cigarette Use: with nicotine ROS ROS ED Constitutional Constitutional ED: Denies chills or fever(s) Eyes Eyes: Denies blurry vision or change in vision ENT ENT ED: Denies rhinorrhea or sore throat Cardiovascular Cardiovascular: Denies chest pain or palpitations Respiratory/Chest Respiratory/Chest: Denies cough or dyspnea Gastrointestinal Gastrointestinal: Denies nausea or vomiting Genitourinary Genitourinary ED: Denies dysuria or hematuria Musculoskeletal Musculoskeletal: Denies back pain or neck pain Integumentary Denies abscess or rash Neurologic Neurologic: Denies headache(s) or weakness Psychiatric Psychiatric: Reports suicidal ideation and suicidal thoughts Allergic/Immunologic Allergic/Immunologic ED: Denies mouth swelling or urticaria EXAM Physical Exam Const Vital Signs: 10/30/24 12:19 10/30/24 14:14 Temperature 98 F Temperature Source Temporal Pulse Rate 76 78 Respiratory Rate 14 16 Blood Pressure 112/67 134/78 H Blood Pressure Mean 82 96 Pulse Ox 98 98 Oxygen Delivery Method Room Air Room Air Positive well nourished and well developed General Appearance ED: well developed and NAD HEENT Reports moist mucous membranes normocephalic and atraumatic Neck supple and no JVD Resp normal respiratory effort and clear to auscultation bilaterally Cardio Rate: regular rate Rhythm: regular rhythm GI non-tender and non-distended Neuro oriented x3, CN's II-XII intact bilaterally and no sensory deficits noted Mirtha Coma Scale: document GCS findings Spontaneous Obeys Commands Oriented 15 Sensorium / Orientation: alert Motor Exam: strength 5/5 throughout, muscle tone normal throughout and general weakness Psych Appearance: grossly normal Attitude: calm Speech: normal speech Mood Affect: depressed and tearful Thought Content: suicidality, No delusion(s) and No hallucination(s) MDM MDM MDM Narrative Medical decision making narrative: Medical screening labs will be obtained. CBC will be obtained to assess for leukocytosis and anemia. Basic metabolic profile will be obtained to assess for electrolyte abnormality and renal function. Serum alcohol level will be obtained to assess for alcohol intoxication. Urine drug screen will be obtained to assess for substance abuse. Lab Data Attestation: I reviewed the patient's lab results. Lab results narrative: CBC was reviewed. There is a slight anemia with a hemoglobin of 12.8 and hematocrit of 39.7. Basic metabolic profile was reviewed and was essentially within normal limits. Serum alcohol level was reviewed and was less than 10.1. Urine tox screen was reviewed and was positiv (more content not included)... Normal [facility] Urine Drug Screen (VISTA)on 10-30-2024 AMPHETAMINES Positive Normal <1000 ng/mL [facility] Comment on above: Result Comment: If c onfirmation testing is needed, a separate order will be required to send out testing to the reference laboratory. Performed By: #### L 501.9100, L500.2500, L505.5000, L100.0100 #### [facility] [address] [facility] [phone] BARBITIURATES Negative Normal < 200 ng/mL [facility] Comment on above: Performed By: #### L 501.9100, L500.2500, L505.5000, L100.0100 #### [facility] [address] [place], [place], [phone] ([phone] BENZODIAZIPINE Negative Normal < 200 ng/mL [facility] Comment on above: Performed By: #### L 501.9100, L500.2500, L505.5000, L100.0100 #### [facility] [address] [place], [place], [id number] ([phone] BUP Ur Drug Scr Positive Normal < 200 ng/mL [facility] Comment on above: Result Comment: If c onfirmation testing is needed, a separate order will be required to send out testing to the reference laboratory. Performed By: #### L 501.9100, L500.2500, L505.5000, L100.0100 #### [facility] [address] [place], [address] COCAINE Negative Normal < 300 ng/mL [facility] Comment on above: Performed By: #### L 501.9100, L500.2500, L505.5000, L100.0100 #### [facility] [address] [place], [address] Fentanyl Negative Normal [facility] Comment on above: Performed By: #### L 501.9100, L500.2500, L505.5000, L100.0100 #### [facility] [address] [place], [address] METHADONE Negative Normal < 300 ng/mL [facility] Comment on above: Performed By: #### L 501.9100, L500.2500, L505.5000, L100.0100 #### [facility] [address] [place], [address] OPIATES Negative Normal < 300 ng/mL [facility] Comment on above: Performed By: #### L 501.9100, L500.2500, L505.5000, L100.0100 #### [facility] [facility] [address] [place], [address] OXYCODONE Negative Normal < 100 ng/mL [facility] Comment on above: Performed By: #### L 501.9100, L500.2500, L505.5000, L100.0100 #### [facility] [address] [place], [address] PCP Negative Normal < 25 ng/mL [facility] Comment on above: Performed By: #### L 501.9100, L500.2500, L505.5000, L100.0100 #### [facility] [address] [place], [address] THC Negative Normal < 50 ng/mL [facility] Comment on above: Performed By: #### L 501.9100, L500.2500, L505.5000, L100.0100 #### [facility] [address] [place], [address] Brain/Head without Contrasto n 05-07-2024 Brain/Head without Contrast [facility] Imaging Services [address] [place] [address] Brain/Head without Contrast MR#: [id number] Acct: [id number] Name: HERMAN DOOLEY Rep #: [id number] : 1990 M 33 From: Amari dawson MD PCP: Dr. Roman Ulrich MD Status: [facility] Study: Brain/Head without Contrast Date of Exam: 04/22 10/14 Exam# [id number] Ordering Dr: Enoch Mcneal MD [id number] EXAM: CT HEAD WITHOUT INTRAVENOUS CONTRAST CLINICAL [...] Enoch Mcneal MD; Dr. Roman Ulrich MD Insole Reinforcer: Signed Normal [facility] Emergency Department Summary on 05-07-2024 Emergency Department Summary [facility] Medical Records Department [address] [place] [address] Emergency Department Summary 05/07/24 MR#: [id number] Acct: [id number] Name: HERMAN DOOLEY Rep #: [id number] : 1990 33 From: Enoch Mcneal MD [...] history, he does not take blood thinners. [facility] Home Medications ???Medication ???Instructions ???Recorded ???Last Taken [...] I was going to write him for [place], but in review of his OARRS report, [...] Review Discuss (more content not included)... Normal [facility] Ribs Uni Min 3V w/PA Cheston 05-07-2024 Ribs Uni Min 3V w/PA Chest [facility] Imaging Services [address] [place], [place] [address] Ribs Uni Min 3V w/PA Chest MR#: [id number] Acct: [id number] Name: HERMAN DOOLEY Rep #: [id number] : 1990 M 33 From: Amari dawson MD PCP: Dr. Roman Ulrich MD Status: REG ER Study: Ribs Uni Min 3V w/PA Chest Date of Exam: 05/07 Exam# [id number] Ordering Dr: Enoch Mcneal MD [id number] EXAM: XR LEFT RIBS AND AP CHEST, [...] Enoch Mcneal MD; Dr. Roman Ulrich MD Insole Reinforcer: Signed Normal [facility] Soft Tissue Neck without Con gordon 05-07-2024 Soft Tissue Neck without Contr [facility] Imaging Services [address] [place], [place] [address] Soft Tissue Neck without Contr MR#: [id number] Acct: [id number] Name: HERMAN DOOLEY Rep #: [id number] : 1990 M 33 From: Amari dawson MD PCP: Dr. Roman Ulrich MD Status: REG ER Study: Soft Tissue Neck without Contr Date of Exam: 0 05/07/24 Exam# [id number] Ordering Dr: Enoch Mcneal MD [id number] EXAM: CT NECK WITHOUT INTRAVENOUS CONTRAST CLINICAL [...] Signed: Amari Faith MD at 23:57 EST , CC: Dr. Enoch Mcneal MD; Dr. Roman Ulrich MD Insole Reinforcer: Signed Normal [facility] CORONAVIRUS GENOMEon 020 COVIDGENOM NOT DETECTED Normal NOT DETECTED [facility] Comment on above: Performed By: #### C OVGENO #### [facility] [address] [place] [address] Regional Production Manager - Yadira PERKINS [id number] Performed for [facility] [address] [place], [place] [address] HEADING PCR Normal [facility] Comment on above: Performed By: #### C OVGENO #### [facility] [address] [place] [address] Regional Production Manager - Yadira PERKINS [id number] Performed for [facility] [address] [place], [place] [address] A1Con 12-01-2019 Average glucose Estimated from glycated hemoglobin mass conc (Bld) 108 mg/dL Normal 68-125 [facility] Comment on above: Performed By: #### 1 7855-8 #### [facility] [address] [place] [address] Regional Production Manager - Yadira PERKINS [id number] HbA1c (Bld) [Mass fraction] 5.4 %A1C Normal 4.2-6.3 [facility] Comment on above: Performed By: #### 1 7855-8 #### [address] [facility] [place] [address] Regional Production Manager - Yadira PERKINS [id number] HbA1c (Bld) [Mass fraction] A1C INTERPRETATION %A1c (NGSP) Interpretation 3.8 - 6.4 Non-Diabetic Range 5.7 - 6.4 Prediabetic >6.5 Action Suggested The eAG (estimated average glucose) is an estimation of one?s average blood glucose level, calculated based on A1C test results, reported using the same units (mg/dL) seen on blood glucose meters. Normal [facility] Comment on above: Performed By: #### 1 7855-8 #### [address] [place] [address] Regional Production Manager - Yadira PERKINS [id number] CBC with DIFFERENTIALon 11-20 Basophils (Bld) [#/Vol]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
--- OUTSIDE RECORDS SUMMARY | 2025-02-17 07:44 | XMS RPT_ITS | CCD ---
Author Organization [place] [facility] Care Team Providers Care It Data Architect Name Role Phone Carlyle Edwards Unavailable Unavailable PROVIDER, UNKNOWN Unavailable Unavailable No, PCP Unavailable Unavailable KENISHA HUTCHISON Admitting Unavailable KENISHA HUTCHISON Primary Care Unavailable BELLE ECHEVARRIA Primary Care Unavailable ELMER CLEMENTE Admitting Unavailable ELMER CLEMENTE Consulting Unavailable ELMER CLEMENTE Attending Unavailable NONE, NONE Consulting Unavailable SANJUANITA STRONG Admitting Unavailable SANJUANITA STRONG Consulting Unavailable STRONGSANJUANITA Attending Unavailable NONE, NONE Consulting Unavailable [place], Roman Primary Care Unavailable Wallace Browne Attending Unavailable [place], Roman Primary Care Unavailable Steven Calderon Attending Unavailable Steven Calderon Referring Unavailable EUGENE MORRISON Attending Unavailable EUGENE MORRISON Referring Unavailable [place], Roman Primary Care Unavailable Reodicrio, Enoch Referring Unavailable [place], Roman Primary Care Unavailable Reodica, Enoch Attending Unavailable Problems Active Problems Problem Classification [...] Department Summary on 02-01-2025 Emergency Department Summary [facility] Medical Records Department [address] [place] [address] Emergency Department Summary 02/01/25 MR#: [id number] Acct: [id number] Name: HERMAN DOOLEY Rep #: [id number] : 1990 34 From: Wallace Browne DO [...] infectious and with this presents for evaluation. [facility] Medical History (Updated 02/01/25 @ 08:18 by [...] disorder and (more content not included)... Normal [facility] Alcohol, Blood (Medical)-Ser umon 10-30-2024 SERUM ETOH < 10.1 Normal <=10.0 [facility] Comment on above: Result Comment: This test is for medical purposes only. The legal definition of intoxication varies according to local law. Performed By: #### L 501.9100, L500.2500, L505.5000, L100.0100 #### [facility] [address], [address] Basic Metabolic Profile (BMP )on 10-30-2024 BUN/CRE 10.9 RATIO Normal 10-20 [facility] Comment on above: Performed By: #### L 501.9100, L500.2500, L505.5000, L100.0100 #### [facility] [address] [place], [address] Calcium [Mass/Vol] 9.2 mg/dL Normal 7.6-11.0 [facility] Comment on above: Performed By: #### L 501.9100, L500.2500, L505.5000, L100.0100 #### [facility] [address] [place], [address] Chloride [Moles/Vol] 104 mmol/L Normal 98-108 [facility] Comment on above: Performed By: #### L 501.9100, L500.2500, L505.5000, L100.0100 #### [facility] [address] [place], [address] CO2 [Moles/Vol] 28.3 mmol/L Normal 21.0-32.0 [facility] Comment on above: Performed By: #### L 501.9100, L500.2500, L505.5000, L100.0100 #### [facility] [address] [place], [address] Creatinine [Mass/Vol] 0.86 mg/dL Normal 0.70-1.20 [facility] Comment on above: Performed By: #### L 501.9100, L500.2500, L505.5000, L100.0100 #### [facility] [address] [place], [address] ECRCL 104.43 ml/min Normal 50-250 [facility] Comment on above: Performed By: #### L 501.9100, L500.2500, L505.5000, L100.0100 #### [facility] [address] [place], [address] GAP 11 Normal 5-15 [facility] Comment on above: Performed By: #### L 501.9100, L500.2500, L505.5000, L100.0100 #### [facility] [address] [place], [address] GFR/1.73 sq M.predicted among non-blacks MDRD (S/P/Bld) [Vol rate/Area] 117 mL/min/{1.73_m2} Normal >60 [facility] Comment on above: Result Comment: mL/m in/1.73m2 CKD-EPI Creatinine Equation (2020) Performed By: #### L 501.9100, L500.2500, L505.5000, L100.0100 #### [facility] [address] [place], [address] Glucose [Mass/Vol] 83 mg/dL Normal 70-99 [facility] Comment on above: Performed By: #### L 501.9100, L500.2500, L505.5000, L100.0100 #### [facility] [address] [place], [address] Potassium [Moles/Vol] 4.2 mmol/L Normal 3.3-5.1 [facility] Comment on above: Performed By: #### L 501.9100, L500.2500, L505.5000, L100.0100 #### [facility] [address] [place], [address] Sodium [Moles/Vol] 143 mmol/L Normal 133-145 [facility] Comment on above: Performed By: #### L 501.9100, L500.2500, L505.5000, L100.0100 #### [facility] [address] [place], [address] Urea nitrogen [Mass/Vol] 9 mg/dL Normal 4-19 [facility] Comment on above: Performed By: #### L 501.9100, L500.2500, L505.5000, L100.0100 #### [facility] [address] [place], [address] CBC W/Diff, Automatedon 07- Absolute Lymph 1.16 X10 3/uL Normal 0.83-4.51 [facility] Comment on above: Performed By: #### L 501.9100, L500.2500, L505.5000, L100.0100 #### [facility] [address] [place], [address] Absolute Neut 2.2 X10 3/uL Normal 2.0-7.7 [facility] Comment on above: Performed By: #### L 501.9100, L500.2500, L505.5000, L100.0100 #### [facility] [address] [place], [address] Basophils/100 WBC (Bld) 0.8 % Normal 0-1 [facility] Comment on above: Performed By: #### L 501.9100, L500.2500, L505.5000, L100.0100 #### [facility] [address] [place], [address] Eosinophils/100 WBC (Bld) 2.1 % Normal 0-5 [facility] Comment on above: Performed By: #### L 501.9100, L500.2500, L505.5000, L100.0100 #### [facility] [address] [place], [address] Erythrocyte distribution width (RBC) [Ratio] 12.5 % Normal 11.6-14.6 [facility] Comment on above: Performed By: #### L 501.9100, L500.2500, L505.5000, L100.0100 #### [facility] [address] [place], [address] Hematocrit (Bld) [Volume fraction] 39.7 % Low 40-54 [facility] Comment on above: Performed By: #### L 501.9100, L500.2500, L505.5000, L100.0100 #### [facility] [address] [place], [address] Hemoglobin (Bld) [Mass/Vol] 12.8 g/dL Low 13.0-16.5 [facility] Comment on above: Performed By: #### L 501.9100, L500.2500, L505.5000, L100.0100 #### [facility] [address] [place], [address] IG% 0.300 Normal 0.0-0.9 [facility] Comment on above: Result Comment: IG% - Immature Granulocytes (promyelocytes, myelocytes and metamyelocytes) > 1% indicates that a LEFT SHIFT is Present. Performed By: #### L 501.9100, L500.2500, L505.5000, L100.0100 #### [facility] [address] [place], [address] Lymphocytes/100 WBC (Bld) 30.9 % Normal 19-41 [facility] Comment on above: Performed By: #### L 501.9100, L500.2500, L505.5000, L100.0100 #### [facility] [address] [place], [address] MCH (RBC) [Entitic mass] 29.2 pg Normal 27.0-32.0 [facility] Comment on above: Performed By: #### L 501.9100, L500.2500, L505.5000, L100.0100 #### [facility] [address] [place], [address] MCHC (RBC) [Mass/Vol] 32.2 g/dL Normal 32-36 [facility] Comment on above: Performed By: #### L 501.9100, L500.2500, L505.5000, L100.0100 #### [facility] [address] [place], [address] MCV (RBC) [Entitic vol] 90.4 fL Normal 80-94 [facility] Comment on above: Performed By: #### L 501.9100, L500.2500, L505.5000, L100.0100 #### [facility] [address] [place], [address] Monocytes/100 WBC (Bld) 7.5 % Normal 0-10 [facility] Comment on above: Performed By: #### L 501.9100, L500.2500, L505.5000, L100.0100 #### [facility] [address] [place], [address] Neutrophils/100 WBC (Bld) 58.4 % Normal 47-70 [facility] Comment on above: Performed By: #### L 501.9100, L500.2500, L505.5000, L100.0100 #### [facility] [address] [place], [address] Nucleated RBC (Bld) [#/Vol] 0 10*3/uL Normal 0-5 [facility] Comment on above: Performed By: #### L 501.9100, L500.2500, L505.5000, L100.0100 #### [facility] [address] [place], [address] Platelet mean volume (Bld) [Entitic vol] 10.5 fL Normal 6.2-12.0 [facility] Comment on above: Performed By: #### L 501.9100, L500.2500, L505.5000, L100.0100 #### [facility] [address] [place], [address] Platelets (Bld) [#/Vol] 253 10*3/uL Normal 150-450 [facility] Comment on above: Performed By: #### L 501.9100, L500.2500, L505.5000, L100.0100 #### [facility] [address] [place], [address] RBC (Bld) [#/Vol] 4.39 10*6/uL Low 4.6-6.2 [facility] Comment on above: Performed By: #### L 501.9100, L500.2500, L505.5000, L100.0100 #### [facility] [address] [place], [address] RDW SD 41.8 fl Normal 35.1-43.9 [facility] Comment on above: Performed By: #### L 501.9100, L500.2500, L505.5000, L100.0100 #### [facility] [address] [place], [address] WBC (Bld) [#/Vol] 3.8 10*3/uL Low 4.4-11.0 [facility] Comment on above: Performed By: #### L 501.9100, L500.2500, L505.5000, L100.0100 #### [facility] [address] [place], [address] Emergency Department Summary on 10-30-2024 Emergency Department Summary [facility] Medical Records Department [address] [place] [address] Emergency Department Summary 10/30/24 MR#: [id number] Acct: [id number] Name: HERMAN DOOLEY Rep #: [id number] : 1990 33 From: Steven Calderon DO [...] Patient denies any visual or auditory hallucinations. [facility] Medical History (Updated 10/30/24 @ 16:07 by [...] was positiv (more content not included)... Normal [facility] Urine Drug Screen (VISTA)on 10-30-2024 AMPHETAMINES Positive Normal <1000 ng/mL [facility] Comment on above: Result Comment: If c onfirmation testing is needed, a separate order will be required to send out testing to the reference laboratory. Performed By: #### L 501.9100, L500.2500, L505.5000, L100.0100 #### [facility] [address] [facility] [phone] ([address]) BARBITIURATES Negative Normal < 200 ng/mL [facility] Comment on above: Performed By: #### L 501.9100, L500.2500, L505.5000, L100.0100 #### [facility] [address] [place], [place], [id number] BENZODIAZIPINE Negative Normal < 200 ng/mL [facility] Comment on above: Performed By: #### L 501.9100, L500.2500, L505.5000, L100.0100 #### [facility] [address] [place], [place], [phone] BUP Ur Drug Scr Positive Normal < 200 ng/mL [facility] Comment on above: Result Comment: If c onfirmation testing is needed, a separate order will be required to send out testing to the reference laboratory. Performed By: #### L 501.9100, L500.2500, L505.5000, L100.0100 #### [facility] [address] [place], [address] COCAINE Negative Normal < 300 ng/mL [facility] Comment on above: Performed By: #### L 501.9100, L500.2500, L505.5000, L100.0100 #### [facility] [address] [place], [address] Fentanyl Negative Normal [facility] Comment on above: Performed By: #### L 501.9100, L500.2500, L505.5000, L100.0100 #### [facility] [address] [place], [address] METHADONE Negative Normal < 300 ng/mL [facility] Comment on above: Performed By: #### L 501.9100, L500.2500, L505.5000, L100.0100 #### [facility] [address] [place], [address] OPIATES Negative Normal < 300 ng/mL [facility] Comment on above: Performed By: #### L 501.9100, L500.2500, L505.5000, L100.0100 #### [facility] [address] [place], [address] OXYCODONE Negative Normal < 100 ng/mL [facility] Comment on above: Performed By: #### L 501.9100, L500.2500, L505.5000, L100.0100 #### [facility] [address] [place], [address] PCP Negative Normal < 25 ng/mL [facility] Comment on above: Performed By: #### L 501.9100, L500.2500, L505.5000, L100.0100 #### [facility] [address] [place], [address] THC Negative Normal < 50 ng/mL [facility] Comment on above: Performed By: #### L 501.9100, L500.2500, L505.5000, L100.0100 #### [facility] [address] [place], [address] Brain/Head without Contrasto n 05-07-2024 Brain/Head without Contrast [facility] Imaging Services [address] [place] [address] Brain/Head without Contrast MR#: [id number] Acct: [id number] Name: HERMAN DOOLEY Rep #: [id number] : 1990 M 33 From: Amari dawson MD PCP: Dr. Roman Ulrich MD Status: [facility] Study: Brain/Head without Contrast Date of Exam: 04/22 10/14 Exam# [id number] Ordering Dr: Enoch Mcneal MD [id number] EXAM: CT HEAD WITHOUT INTRAVENOUS CONTRAST CLINICAL [...] Enoch Mcneal MD; Dr. Roman Ulrich MD Financial Aid Administrator: Signed Normal [facility] Emergency Department Summary on 05-07-2024 Emergency Department Summary [facility] Medical Records Department [address] [place] [address] Emergency Department Summary 05/07/24 MR#: [id number] Acct: [id number] Name: HERMAN DOOLEY Rep #: [id number] : 1990 33 From: Enoch Mcneal MD [...] history, he does not take blood thinners. [facility] Home Medications ???Medication ???Instructions ???Recorded ???Last [...] I was going to write him for [place], but in review of his OARRS report, [...] Review Discuss (more content not included)... Normal [facility] Ribs Uni Min 3V w/PA Cheston 05-07-2024 Ribs Uni Min 3V w/PA Chest [facility] Imaging Services [address] [place], [place] [address] Ribs Uni Min 3V w/PA Chest MR#: [id number] Acct: [id number] Name: HERMAN DOOLEY Rep #: [id number] : 1990 M 33 From: Amari dawson MD PCP: Dr. Roman Ulrich MD Status: [facility] Study: Ribs Uni Min 3V w/PA Chest Date of Exam: 05/07 Exam# [id number] Ordering Dr: Enoch Mcneal MD [id number] EXAM: XR LEFT RIBS AND AP CHEST, [...] Enoch Mcneal MD; Dr. Roman Ulrich MD Financial Aid Administrator: Signed Normal [facility] Soft Tissue Neck without Con gordon 05-07-2024 Soft Tissue Neck without Contr [facility] Imaging Services [address] [place], [place] [address] Soft Tissue Neck without Contr MR#: [id number] Acct: [id number] Name: HERMAN DOOLEY Rep #: [id number] : 1990 M 33 From: Amari dawson MD PCP: Dr. Roman Ulrich MD Status: [facility] Study: Soft Tissue Neck without Contr Date of Exam: 0 05/07/24 Exam# [id number] Ordering Dr: Enoch Mcneal MD [id number] EXAM: CT NECK WITHOUT INTRAVENOUS CONTRAST CLINICAL [...] Enoch Mcneal MD; Dr. Roman Ulrich MD Financial Aid Administrator: Signed Normal [facility] CORONAVIRUS GENOMEon 020 COVIDGENOM NOT DETECTED Normal NOT DETECTED [facility] Comment on above: Performed By: #### C OVGENO #### [facility] [address] [place] [address] Audit Associate - Yadira PERKINS [id number] Performed for [facility] [address] [place], [place] [address] HEADING PCR Normal [facility] Comment on above: Performed By: #### C OVGENO #### [facility] [address] [place] [address] Audit Associate - Yadira PERKINS [id number] Performed for [facility] [address] [place], [place] [address] A1Con 12-01-2019 Average glucose Estimated from glycated hemoglobin mass conc (Bld) 108 mg/dL Normal 68-125 [facility] Comment on above: Performed By: #### 1 7855-8 #### [facility] [address] [place] [address] Audit Associate - Yadira PERKINS [id number] HbA1c (Bld) [Mass fraction] 5.4 %A1C Normal 4.2-6.3 [facility] Comment on above: Performed By: #### 1 7855-8 #### [address] [facility] [place] [address] Audit Associate - Yadira PERKINS [id number] HbA1c (Bld) [Mass fraction] A1C INTERPRETATION %A1c (NGSP) Interpretation 3.8 - 6.4 Non-Diabetic Range 5.7 - 6.4 Prediabetic >6.5 Action Suggested The eAG (estimated average glucose) is an estimation of one?s average blood glucose level, calculated based on A1C test results, reported using the same units (mg/dL) seen on blood glucose meters. Normal [facility] Comment on above: Performed By: #### 1 7855-8 #### [address] [place] [address] Audit Associate - Yadira PERKINS [id number] CBC with DIFFERENTIALon 11-20 Basophils (Bld) [#/Vol] 0.05 10*3/uL Normal <=0.70 [facility] Comment on above: Performed By: #### 5 7021-8 #### [place] [address] [facility]. [place] [address] Audit Associate - Yadira PERKINS [id number] Basophils/100 WBC (Bld) 0.9 % Normal <=2.0 [facility] Comment on above: Performed By: #### 5 7021-8 #### [address] [place] [address] Audit Associate - Yadira PERKINS [id number] Eosinophils (Bld) [#/Vol] 0.10 10*3/uL Normal <=0.70 [facility] Comment on above: Performed By: #### 5 7021-8 #### [facility] [address] [place] [address] Audit Associate - Yadira HILLIA [id number] Eosinophils/100 WBC (Bld) 1.8 % Normal <=10.0 [facility] Comment on above: Performed By: #### 5 7021-8 #### [facility] [address] [place] [address] Audit Associate - Yadira HILLIA [id number] Erythrocyte distribution width (RBC) [Entitic vol] 41.1 fL Normal 35.1-43.9 [facility] Comment on above: Performed By: #### 5 7021-8 #### [facility] [address] [place] [address] Audit Associate - Yadira HILLIA [id number] Hematocrit (Bld) [Volume fraction] 42.2 % Normal 40.0-54.0 [facility] Comment on above: Performed By: #### 5 7021-8 #### [place] [address] [place] [address] Audit Associate - Yadira HILLIA [id number] Hemoglobin (Bld) [Mass/Vol] 14.3 g/dL Normal 14.0-18.0 [facility] Comment on above: Performed By: #### 5 7021-8 #### [place] [address] [place] [address] Audit Associate - Yadira HILLIA [id number] Immature granulocytes (Bld) [#/Vol] 0.01 10*3/uL Normal <=0.10 [facility] Comment on above: Performed By: #### 5 7021-8 #### [facility] [address] [place] [address] Audit Associate - Yadira HILLIA [id number] Immature granulocytes/100 WBC (Bld) 0.20 % Normal <=1.50 [facility] Comment on above: Performed By: #### 5 7021-8 #### [facility] [address] [place] [address] Audit Associate - Yadira HILLIA [id number] Lymphocytes (Bld) [#/Vol] 1.84 10*3/uL Normal 1.20-3.40 [facility] Comment on above: Performed By: #### 5 7021-8 #### [place] [address] [facility]. [place] [address] Audit Associate - Yadira HILLIA [id number] Lymphocytes/100 WBC (Bld) 33.6 % Normal 20.0-40.0 [facility] Comment on above: Performed By: #### 5 7021-8 #### [place] [address] Audit Associate - Yadira HILLIA [id number] MCH (RBC) [Entitic mass] 29.7 pg Normal 27.0-31.0 [facility] Comment on above: Performed By: #### 5 7021-8 #### [place] [address] Audit Associate - Yadira HILLIA [id number] MCHC (RBC) [Mass/Vol] 33.9 g/dL Normal 32.0-36.0 [facility] Comment on above: Performed By: #### 5 7021-8 #### [address] [place] [address] Audit Associate - Yadira HILLIA [id number] MCV (RBC) [Entitic vol] 87.7 fL Normal 80.0-100.0 [facility] Comment on above: Performed By: #### 5 7021-8 #### [place] [address] Audit Associate - Yadira Renee CLIA [id number] Monocytes (Bld) [#/Vol] 0.39 10*3/uL Normal 0.10-0.60 [facility] Comment on above: Performed By: #### 5 7021-8 #### [place] [address] Audit Associate - Yadira Renee CLIA [id number] Monocytes/100 WBC (Bld) 7.1 % Normal <=8.0 [facility] Comment on above: Performed By: #### 5 7021-8 #### [place] [address] [place] [address] Audit Associate - Yadira Renee CLIA [id number] Neutrophils (Bld) [#/Vol] 3.09 10*3/uL Normal 1.40-6.50 [facility] Comment on above: Performed By: #### 5 7021-8 #### [place] [address] [place] [address] Audit Associate - Yadira Renee CLIA [id number] Neutrophils/100 WBC (Bld) 56.4 % Normal 50.0-70.0 [facility] Comment on above: Performed By: #### 5 7021-8 #### [address] [place] [address] Audit Associate - Yadira Renee CLIA [id number] Nucleated RBC (Bld) [#/Vol] 0.00 10*3/uL Normal <=0.10 [facility] Comment on above: Performed By: #### 5 7021-8 #### [address] [place] [address] Audit Associate - Yadira Renee CLIA [id number] Platelet mean volume (Bld) [Entitic vol] 10.8 fL Normal 9.0-13.0 [facility] Comment on above: Performed By: #### 5 7021-8 #### [address] [facility] [place] [address] Audit Associate - Yadira Renee CLIA [id number] Platelets (Bld) [#/Vol] 257 10*3/uL Normal 130-400 [facility] Comment on above: Performed By: #### 5 7021-8 #### [address] [place] [address] Audit Associate - Yadira Renee CLIA [id number] RBC (Bld) [#/Vol] 4.81 10*6/uL Normal 4.00-6.30 [facility] Comment on above: Performed By: #### 5 7021-8 #### [facility] [address] [place] [address] Audit Associate - Yadira PERKINS [id number] WBC (Bld) [#/Vol] 5.48 10*3/uL Normal 4.80-10.80 [facility] Comment on above: Performed By: #### 5 7021-8 #### [facility] [address] [place] [address] Audit Associate - Yadira PERKINS [id number] COMPREHENSIVE METABOLIC PANE Matt 12-01-2019 Albumin [Mass/Vol] 4.2 g/dL Normal 3.4-5.0 [facility] Comment on above: Performed By: #### 5 7698-3, 32893-9 #### [facility] [address] [place] [address] Audit Associate - Yadira PERKINS [id number] ALP [Catalytic activity/Vol] 78 U/L Normal 50-136 [facility] Comment on above: Performed By: #### 5 7698-3, 29024-9 #### [facility] [address] [place] [address] Audit Associate - Yadira PERKINS [id number] ALT [Catalytic activity/Vol] 19 U/L Normal 16-63 [facility] Comment on above: Performed By: #### 5 7698-3, 15490-5 #### [facility] [address] [place] [address] Audit Associate - Yadira PERKINS [id number] Anion gap [Moles/Vol] 4.0 mmol/L Normal <=15.0 [facility] Comment on above: Performed By: #### 5 7698-3, 31232-7 #### [facility] [address] [place] [address] Audit Associate - Yadira PERKINS [id number] AST [Catalytic activity/Vol] 16 U/L Normal 15-37 [facility] Comment on above: Performed By: #### 5 7698-3, 41562-2 #### [facility] [address] [place] [place] [address] Audit Associate - Yadira HILLIA [id number] Bilirubin [Mass/Vol] 0.4 mg/dL Normal 0.2-1.0 [facility] Comment on above: Performed By: #### 5 7698-3, 91659-8 #### [facility] [address] [place] [address] Audit Associate - Yadira HILLIA [id number] Calcium [Mass/Vol] 9.2 mg/dL Normal 8.5-10.1 [facility] Comment on above: Performed By: #### 5 7698-3, 70397-0 #### [facility] [address] [place] [address] Audit Associate - Yadira HILLIA [id number] Chloride [Moles/Vol] 102 mmol/L Normal 98-107 [facility] Comment on above: Performed By: #### 5 7698-3, 74754-5 #### [facility] [address] [place] [address] Audit Associate - Yadira HILLIA [id number] CO2 [Moles/Vol] 32 mmol/L Normal 21-32 [facility] Comment on above: Performed By: #### 5 7698-3, 73015-9 #### [facility] [address] [place] [address] Audit Associate - Yadira HILLIA [id number] Creatinine [Mass/Vol] 1.05 mg/dL Normal 0.67-1.17 [facility] Comment on above: Performed By: #### 5 7698-3, 01130-0 #### [facility] [address] [place] [address] Audit Associate - Yadira HILLIA [id number] GFR/1.73 sq M predicted among non-blacks MDRD [...] months, with or without kidney damage.~ Normal [facility] Comment on above: Performed By: #### 5 7698-3, 27165-9 #### [facility] [address] [place] [address] Audit Associate - Yadira PERKINS [id number] GFR/1.73 sq M.predicted MDRD (S/P/Bld) [Vol rate/Area] mL/min/{1.73_m2} Normal >=59 [facility] Comment on above: Performed By: #### 5 7698-3, 46046-2 #### [facility] [address] [place] [address] Audit Associate - Yadira PERKINS [id number] Glucose [Mass/Vol] 92 mg/dL Normal 74-106 [facility] Comment on above: Performed By: #### 5 7698-3, 28606-5 #### [facility] [address] [place] [address] Audit Associate - Yadira PERKINS [id number] Potassium [Moles/Vol] 4.5 mmol/L Normal 3.5-5.1 [facility] Comment on above: Performed By: #### 5 7698-3, 90657-7 #### [facility] [address] [place] [address] Audit Associate - [facility]ene[facility] PERKINS [id number] Protein [Mass/Vol] 7.2 g/dL Normal 6.4-8.2 [facility] Comment on above: Performed By: #### 5 7698-3, 63158-6 #### [facility] [address] [place] [address] Audit Associate - Yadira PERKINS [id number] Sodium [Moles/Vol] 138 mmol/L Normal 136-145 [facility] Comment on above: Performed By: #### 5 7698-3, 01336-9 #### [facility] [address] [place] [address] Audit Associate - Yadira HILLIA [id number] Urea nitrogen [Mass/Vol] 13 mg/dL Normal 9-20 [facility] Comment on above: Performed By: #### 5 7698-3, 52913-9 #### [facility] [address] [place] [address] Audit Associate - Yadira PERKINS [id number] LIPID PANELon 12-01-2019 Cholesterol [Mass/Vol] CHOLESTEROL INTERPRETATION Desirable <200 Borderline High 200-239 High >240 Normal [facility] Comment on above: Performed By: #### 5 7698-3, 24649-8 #### [facility] [address] [place] [address] Audit Associate - Yadira HILLIA [id number] Cholesterol [Mass/Vol] 170 mg/dL Normal <=200 [facility] Comment on above: Performed By: #### 5 7698-3, 20161-5 #### [facility] [address] [place] [address] Audit Associate - Yadira HILLIA [id number] Cholesterol in HDL [Mass/Vol] 68 mg/dL High 40-59 [facility] Comment on above: Performed By: #### 5 7698-3, 58530-1 #### [facility] [address] [place] [address] Audit Associate - Yadira PERKINS [id number] Cholesterol in LDL [Mass/Vol] 88 mg/dL Normal 5-100 [facility] Comment on above: Performed By: #### 5 7698-3, 70502-1 #### [facility] [address] [place] [address] Audit Associate - Yadira PERKINS [id number] Cholesterol in LDL [Mass/Vol] LDL INTERPRETATION Desirable <100 Near Optimal 100-129 Borderline High 130-159 High 160-190 Very High >190 Normal [facility] Comment on above: Performed By: #### 5 7698-3, 29852-1 #### [facility] [address] [place] [address] Audit Associate - Yadira [id number] Cholesterol in LDL/Cholesterol in HDL [Mass ratio] 1.3 Normal [facility] Comment on above: Performed By: #### 5 7698-3, 62131-6 #### [facility] [address] [place] [address] Audit Associate - Yadira [id number] CHOLESTEROL/HDL 2.5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
[2025-02-17] MEDS: Lactated Ringers 1,000 ML 75 ML IV (10:50)
--- NOTE | 2025-02-17 13:01 | NURSING ---
pt off floor for procedure
[2025-02-17] MEDS: Lactated Ringers 1,000 ML 15 ML IV (13:16)
--- NOTE | 2025-02-17 13:36 | PCM.PRE.AN2 ---
ASA Classification* ASA Classification ASA Classification: 3 Assessment & Plan Anesthesia* Anesthesia Assessment Anesthesia Assessment: Discussed sedation and/or anesthesia options, risks, benefits, and alternatives with patient/parents/legal guardian/POA. Questions invited. The patient/parents/legal guardian/POA seems to understand and agrees to proceed with anesthesia plan. Reviewed the physical assessment, medical history, allergy history and patient home medications list prior to surgery/procedure/anesthetic and documented any changes. Performed airway and anesthesia risk assessments. Anesthesia Type Anesthesia Type: MAC Anesthesia Focused Assessment* Temperature: 98.0 F Pulse Rate: 82 Blood Pressure: 125/85 Respiratory Rate: 16 Pulse Ox: 99 Airway Assessment Mouth opens: >3 cm Mallampati Score: II Labs Anesthesia Preop lab: CBC WBC, (4.4-11.0) 7.1 K/mm3 Today, 06:51 RBC, (4.6-6.2) 3.83 M/mm3 L Today, 06:51 Hgb, (13.0-16.5) 11.3 g/dL L Today, 06:51 Hct, (40-54) 34.5 % L Today, 06:51 Plt Count, (150-450) 198 K/mm3 Today, 06:51 CHEMISTRY Potassium, (3.3-5.1) 3.9 mmol/L Today, 06:51 Sodium, (133-145) 142 mmol/L Today, 06:51 Magnesium, (1.8-2.4) 2.0 mg/dL 12/18/12, 01:00 BUN, (4-19) 13 mg/dL Today, 06:51 Creatinine, (0.70-1.20) 0.94 mg/dL Today, 06:51 Glucose, (70-99) 123 mg/dL H Today, 06:51 POC Glucose, (70-110) 75 mg/dL 12/18/12, 00:14 TSH, (0.358-3.74) 0.87 uIU/mL 08/07/16, 21:26 COAG Pre-Assessment Diagnosis/Proposed Procedure Planned Operative Procedure(s): Cystoscopy stent placement. 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 When Was Last Pacemaker Check QUESTION #4 FULL TEXT: You/Your Family Experience fever (hyperthermia) with Anesthesia Last Oral Intake Last Oral intake: Last Oral Intake NPO since Meds taken in AM with sips of water? Meds patient instructed to take am of surgery PONV PONV - senior chemical engineer: PONV - senior chemical engineer Female HX of Motion Sickness HX of N/V After Surgery Non-Smoker Duration of Surgery greater than 60 minutes Number of Risk Factors PONV Score Height & Weight Height & Weight: Anesthesia: Height & Weight Height 5 ft 9 in 02/17/25 09:15 Weight: 63 kg 02/17/25 09:15 Body Mass Index (BMI) 20.5 02/17/25 09:15 Respiratory Assessment Respiratory Assessment - senior chemical engineer: Respiratory Tract Infection Hx - senior chemical engineer Hx Respiratory Tract Infection No 02/17/25 07:31 STOP Sleep Apnea STOP Sleep Apnea - senior chemical engineer: STOP Sleep Apnea - senior chemical engineer Hx Hypertension No 02/17/25 09:15 Hx Sleep Apnea No 02/17/25 09:15 CPAP No 08/03/15 11:18 BIPAP No 08/01/15 22:21 Do you snore loudly (louder No 02/17/25 09:15 than talking or can be heard Do you often feel tired/ No 02/17/25 09:15 fatigued/ sleepy during daytime? Has anyone observed you stop No 02/17/25 09:15 breathing during sleep? STOP Results Negative 02/17/25 09:15 QUESTION #5 FULL TEXT : Do you snore loudly (louder than talking or can be heard through closed doors)? 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 Specify any problems Hx of Preganancy in last 3 N/A 02/17/25 09:15 Months Nurse Filling Out Transfusion MSCHMID 02/17/25 09:15 & Questions: Date: 02/17/25 02/17/25 09:15 Time: 02/17/25 09:15 Patient unable to answer at this time (ie. confused, unrespo /Reproduction History /Reproductive History - senior chemical engineer: /Reproductive Hx- senior chemical engineer Hx Now No 02/17/25 07:31 Gestational Age (in weeks): EDC: Hx Hx Para Hx Section SAB No 02/17/25 07:31 Active Medications Active Medications: Current Medications Generic Name Dose Route Start Last Admin Trade Name Freq PRN Reason Stop Dose Admin Acetaminophen 650 mg 02/17/25 10:08 Acetaminophen 325 Mg Tablet PO Q4H PRN PRN Pain Score 1-5 Lactated Ringer's 1,000 mls @ 75 mls/hr 02/17/25 10:15 02/17/25 13:02 IV 0 mls/hr .[id number] TIBURCIO Infusion Sodium Chloride 250 mls @ 15 mls/hr 02/17/25 10:13 IV .[id number] PRN Saline Flush Sodium Chloride 250 mls @ 15 mls/hr 02/17/25 10:13 IV .[id number] PRN Additional IVPB Infusion Lactated Ringer's 1,000 mls @ 15 mls/hr 02/17/25 13:15 02/17/25 13:16 IV 15 mls/hr .Q48H TIBURCIO Administration Cefazolin Sodium 2 gm/ Sodium 110 mls @ 200 mls/hr 02/17/25 13:06 Chloride IV 02/17/25 13:38 X1 ONE Ketorolac Tromethamine 15 mg 02/17/25 10:08 02/17/25 10:50 Ketorolac 15 Mg/Ml Vial IV 02/22/25 10:09 15 mg Q6H PRN PRN Administration Pain Score 4-10 Morphine Sulfate 1 mg 02/17/25 10:08 Morphine 2 Mg/Ml Syringe IV Q2H PRN PRN Pain Score 6-10 Oxycodone HCl 5 - 10 mg 02/17/25 10:08 Oxycodone 5 Mg Tablet PO Q6H PRN PRN Pain Score 4-10 Sodium Chloride 10 - 40 ml 02/17/25 10:13 0.9% Saline Lock 10 Ml Syringe IV UD PRN SALINE FLUSH PFSH Medical History Bipolar disorder Depression Anxiety Home Medications ?Medication ?Instructions ?Recorded ?Last Taken ?Type buprenorphine 8 mg-naloxone 2 mg 2 ea sublingual DAILY 05/07/24 Unknown History sublingual film fluoxetine 40 mg capsule 40 mg PO DAILY 05/07/24 Unknown History gabapentin 800 mg tablet 800 mg PO TID 05/07/24 Unknown History MAGIC MOUTH WASH (BMX) 180 mL 10 ml PO 4X/DAY PRN mouth pain 02/01/25 Unknown Rx suspension #180 mL duloxetine 60 mg capsule,delayed 60 mg PO DAILY md ordered 02/01/25 Unknown History release ondansetron 8 mg disintegrating 8 mg PO Q8H PRN nausea and 02/16/25 Unknown Rx tablet vomiting #20 tabs oxycodone-acetaminophen 5 mg-325 1 tab PO Q6H PRN PRN Pain 3 days 02/16/25 Unknown Rx mg tablet #12 TABLETS Allergy/AdvReac Type Severity Reaction Status Date / Time No Known Allergies Allergy Verified 02/17/25 06:35 Social History Smoking Status: Current every day smoker tobacco type: e-cigarettes Electronic Cigarette Use: with nicotine Review of Systems (Anesthesia) ROS Narrative System reviewed and no additional complaints, except as documented.
[2025-02-17] MEDS: Lactated Ringers 500 ML IV (15:31)
[2025-02-17] MEDS: Midazolam 2 MG/2 ML Syringe IV (15:31)
[2025-02-17] MEDS: Cefazolin 1 GM/5 ML Vial 2 GM IV (15:31)
[2025-02-17] MEDS: Lidocaine 1% (5 ml sdv) 5 ML Vial 6 ML IV (15:36)
--- NOTE | 2025-02-17 15:38 | DCINST_ITS ---
Discharge Instructions DC O2, CPAP, BIPAP needs Home O2 Discharge instructions: No Dressing / Incision Discharge Activity: Return to Normal Activity and May Not Drive (while taking narcotic pain medications.) Dressing / Incision Call your doctor if you observe: Fever of 101 or Higher Follow Up Care Please Follow Up With: Lex Shannon MD When: Call [phone] for an appointment Test Results: Test results from this visit will be discussed in further detail at your follow- up appointment, if applicable. Discharge Plan Admission Admit Date/Time: 02/17/25 08:43 Primary Reason for Your Visit: cysto stent Attending Provider: Lex Shannon Primary Care Provider: Roman Ulrich Discharge Orders/Prescriptions Prescriptions: New ciprofloxacin HCl [Cipro] 500 mg tablet 500 mg PO BID Qty: 6 0RF oxycodone 5 mg tablet 5 mg PO Q6H PRN (Reason: pain) 3 Days Qty: 10 0RF Continued duloxetine 60 mg capsule,delayed release(DR/EC) 60 mg PO DAILY ondansetron 8 mg tablet,disintegrating 8 mg PO Q8H PRN (Reason: nausea and vomiting) Qty: 20 0RF oxycodone-acetaminophen 5-325 mg tablet 1 tab PO Q6H PRN PRN (Reason: Pain) 3 Days Qty: 12 0RF fluoxetine 40 mg capsule 40 mg PO DAILY gabapentin 800 mg tablet 800 mg PO TID buprenorphine-naloxone 8-2 mg film 2 ea sublingual DAILY No Action MAGIC MOUTH WASH (BMX) 180 mL suspension 10 ml PO 4X/DAY PRN (Reason: mouth pain) Qty: 180 1RF Rx Instructions: diphenhydramine 12.5 mg/5 mL oral liquid 60 mL; aluminum-mag hydroxide- simethicone 400 mg-400 mg-40 mg/5 mL oral susp 60 mL; Lidocaine Viscous 2 % muco ivan solution 60 mL; Per 180 mL Referrals / Follow Up: Lex Shannon MD [Med Staff - Active Staff, Urology] Roman Ulrich MD [Primary Care Provider, Medical] Disposition Disposition (needs filled in before D/C Order can be placed): Home, Self Care
[2025-02-17] MEDS: Lidocaine Jelly 2% 20 ML Syringe (URO-JET) 1 APPLIC (15:40)
--- NOTE | 2025-02-17 15:46 | OP.PCM_ITS ---
Operative Report (Standard) Operative Information Date of Procedure: 02/17/25 Pre-Operative Diagnosis: Left proximal ureteral calculi Post-Operative Diagnosis: The same Surgery/Procedure Performed: Cystoscopy and left stent placement warp dyeing tender: No Type of Anesthesia: General RN Documented Start/Stop Times: Operation Date: 02/17/25 14:00 Case Time Into Pre-Op 02/17/25 13:03 Out of Pre-Op 02/17/25 15:28 Procedure Start Time: 15:40 Procedure Stop Time: 15:47 Select all DRAINS/GRAFTS/IMPLANTS that apply: Drains Drain details: left stent Estimated Blood Loss: 0 Specimen collected: No Description of surgery: Patient was taken back to the operating room after induction of anesthesia placed in dorsolithotomy position penis and testicles were prepped and draped in usual fashion within the bladder with a 21 [place] rigid cystourethroscope cannulated the left ureteral orifice advanced a wire up past the left kidney stone up into the kidney and then over the wire I placed a stent on the left side pulled the wire and the stent coiled in the kidney bladder in good position patient acetic was reversed and taken back to PACU in good condition plan is to set him up for shockwave lithotripsy to treat the stone that was blocking the left kidney Surgical Findings: stent placed. Complications Complications: No Admit VTE Documentation VTE Present on Admission: No VTE Mechan Device Prophylaxis: SCD's VTE Pharm Prophylaxis ordered?: No
--- NOTE | 2025-02-17 15:58 | PCM.POST.ANE ---
Anesthesia: Postop Eval I Current Vital Signs Temperature: 98.3 F Pulse Rate: 57 Blood Pressure: 109/75 Respiratory Rate: 16 Pulse Ox: 99 Assessment Airway patent: Yes Spontaneous unlabored respirations: Yes nausea: No Vomiting: No Anesthesia Complication: No Fluid Hydration Crystalloid volume administer (ml): 500 Total IV fluid infused: 500 Progress Note Anesthesia document: Postop Eval 1 completed: Yes
--- NOTE | 2025-02-17 16:36 | POSTOPAN2_ITS ---
Anesthesia Postop Eval I Sum Postop Eval Completion status Anesthesia document: Postop Eval 1 completed: Yes Anesthesia Postop Eval I Summary Anesthesia Postop Eval I Summary: Anesthesia Postop Eval I: Assessment Summary Airway patent Yes 02/17/25 15:58 OPTICAL DESIGN [email or web address].[email or web address] Spontaneous unlabored Yes 02/17/25 15:58 OPTICAL DESIGN ENGINEER.TNES respirations Mental status nausea No 02/17/25 15:58 OPTICAL DESIGN [email or web address].TNES Vomiting No 02/17/25 15:58 OPTICAL DESIGN [email or web address].TNES Anesthesia Postop Eval I: Fluid Summary Crystalloid volume administer 500 02/17/25 15:58 OPTICAL DESIGN [email or web address].TNES (ml) Colloids volume administered ( ml) Blood Product volume administered (ml) Total IV fluid infused 500 02/17/25 15:58 OPTICAL DESIGN [email or web address].TNES Anesthesia Postop Eval I: Summary Notes Anesthesia Complication No 02/17/25 15:58 OPTICAL DESIGN [email or web address].TNES Anesthesia Complication Comment: Post-operative progress note Anesthesia: Postop Eval II Evaluation Mental status: Awake and Calm Pain Level: 0 nausea: No Vomiting: No
--- NOTE | 2025-02-17 16:36 | PCM.POSTANE2 ---
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.[email or web address] Spontaneous unlabored Yes 02/17/25 15:58 SHOWROOM SALES ASSISTANT.TNES respirations Mental status nausea No 02/17/25 15:58 SHOWROOM SALES ASSISTANT.TNES Vomiting No 02/17/25 15:58 SHOWROOM SALES ASSISTANT.TNES Anesthesia Postop Eval I: Fluid Summary Crystalloid volume administer 500 02/17/25 15:58 SHOWROOM SALES ASSISTANT.TNES (ml) Colloids volume administered ( ml) Blood Product volume administered (ml) Total IV fluid infused 500 02/17/25 15:58 SHOWROOM SALES ASSISTANT.TNES Anesthesia Postop Eval I: Summary Notes Anesthesia Complication No 02/17/25 15:58 SHOWROOM SALES ASSISTANT.TNES Anesthesia Complication Comment: Post-operative progress note Anesthesia: Postop Eval II Evaluation Mental status: Awake and Calm Pain Level: 0 nausea: No Vomiting: No
[2025-02-18 02:51] VITALS: BP 126/82; PULSE 67; RESP 16; TEMP 36.8; O2SAT 100
[2025-02-18 07:35] VITALS: BP 124/85; PULSE 64; RESP 16; TEMP 36.6; O2SAT 100
--- OUTSIDE RECORDS SUMMARY | 2025-02-18 10:29 | XMS RPT_ITS | CCD ---
Author Organization [facility] Care Team Providers Care Bank Worker Name Role Phone Carlyle Edwards Unavailable Unavailable PROVIDER, UNKNOWN Unavailable Unavailable No, PCP Unavailable Unavailable KENISHA HUTCHISON Admitting Unavailable KENISHA HUTCHISON Primary Care Unavailable BELLE ECHEVARRIA Primary Care Unavailable ELMER CLEMENTE Admitting Unavailable ELMER CLEMENTE Consulting Unavailable ELMER CLEMENTE Attending Unavailable NONE, NONE Consulting Unavailable SANJUANITA STRONG Admitting Unavailable SANJUANITA STRONG Consulting Unavailable SANJUANITA STRONG Attending Unavailable NONE, NONE Consulting Unavailable [facility] Primary Care Unavailable Schwiger, Steven Attending Unavailable Schwiger, Steven Referring Unavailable [place] Primary Care Unavailable Reodica, Enoch Attending Unavailable Reodica, Enoch Referring Unavailable Shiva, Lex Damon Attending Unavailable [facility] Primary Care Unavailable Shiva, Lex Damon Admitting Unavailable [facility] Primary Care Unavailable ARIEL, JOSH Attending Unavailable GLIVAR, JOSH Referring Unavailable Bob Polo Attending Unavailable [facility] Primary Care Unavailable [facility] Primary Care Unavailable Wallace Browne Attending Unavailable Problems Active Problems Problem Classification Problem Date Documented Da te Episodic/Chronic Calculus of urinary tract (3 sources) Calculus of ureter; Translations: [Unspecified renal colic] Onset: 02-17-2025 Episodic External cause codes: Cut/quinn (2 sources) Contact [...] init] Onset: 03-27-2018 Episodic Residual codes; unclassified (2 sources) Pain, unspecified; Translations: [Pain, unspecified] Onset: 02-09-2025 [...] Test Name Value Interpretation Reference Range Facility Basic Metabolic Profile (BMP )on 02-17-2025 BUN/CRE 14.0 RATIO Normal - [facility] Comment on above: Performed By: #### L 500.2500, L100.0100 ####[facility] [address] [place], [address] Calcium [Mass/Vol] 9.0 mg/dL Normal 7.6-11.0 [facility] Comment on above: Performed By: #### L 500.2500, L100.0100 ####[facility] [address] [place], [address] Chloride [Moles/Vol] 103 mmol/L Normal 98-108 [facility] Comment on above: Performed By: #### L 500.2500, L100.0100 ####[facility] [address] [place], [address] CO2 [Moles/Vol] 30.7 mmol/L Normal 21.0-32.0 [facility] Comment on above: Performed By: #### L 500.2500, L100.0100 ####[facility] [address] [place], [address] Creatinine [Mass/Vol] 0.94 mg/dL Normal 0.70-1.20 [facility] Comment on above: Performed By: #### L 500.2500, L100.0100 ####[facility] [address] [place], [address] ECRCL 97.74 ml/min Normal 50-250 [facility] Comment on above: Performed By: #### L 500.2500, L100.0100 ####[facility] [address] [place], [address] GAP 8 Normal 5-15 [facility] Comment on above: Performed By: #### L 500.2500, L100.0100 ####[facility] [address] [place], [address] GFR/1.73 sq M.predicted among non-blacks MDRD (S/P/Bld) [Vol rate/Area] 108 mL/min/{1.73_m2} Normal >60 [facility] Comment on above: Result Comment: mL/m in/1.73m2 CKD-EPI Creatinine Equation (2020) Performed By: #### L 500.2500, L100.0100 ####[facility] [address] [place], [address] Glucose [Mass/Vol] 123 mg/dL High 70-99 [facility] Comment on above: Performed By: #### L 500.2500, L100.0100 ####[facility] [address] [place], [address] Potassium [Moles/Vol] 3.9 mmol/L Normal 3.3-5.1 [facility] Comment on above: Performed By: #### L 500.2500, L100.0100 ####[facility] [address] [place], [address] Sodium [Moles/Vol] 142 mmol/L Normal 133-145 [facility] Comment on above: Performed By: #### L 500.2500, L100.0100 ####[facility] [address] [place], [address] Urea nitrogen [Mass/Vol] 13 mg/dL Normal 4-19 [facility] Comment on above: Performed By: #### L 500.2500, L100.0100 ####[facility] [address] [place], [address] CBC W/Diff, Automatedon 10-2 Absolute Lymph 1.51 X10 3/uL Normal 0.83-4.51 [facility] Comment on above: Performed By: #### L 500.2500, L100.0100 ####[facility] [address] [place], [address] Absolute Neut 4.9 X10 3/uL Normal 2.0-7.7 [facility] Comment on above: Performed By: #### L 500.2500, L100.0100 ####[facility] [address] [place], [address] Basophils/100 WBC (Bld) 0.6 % Normal 0-1 [facility] Comment on above: Performed By: #### L 500.2500, L100.0100 ####[facility] [address] [place], [address] Eosinophils/100 WBC (Bld) 3.5 % Normal 0-5 [facility] Comment on above: Performed By: #### L 500.2500, L100.0100 ####[facility] [address] [place], [address] Erythrocyte distribution width (RBC) [Ratio] 12.3 % Normal 11.6-14.6 [facility] Comment on above: Performed By: #### L 500.2500, L100.0100 ####[facility] [address] [place], [address] Hematocrit (Bld) [Volume fraction] 34.5 % Low 40-54 [facility] Comment on above: Performed By: #### L 500.2500, L100.0100 ####[facility] [address] [place], [address] Hemoglobin (Bld) [Mass/Vol] 11.3 g/dL Low 13.0-16.5 [facility] Comment on above: Performed By: #### L 500.2500, L100.0100 ####[facility] [address] [place], [address] IG% 0.600 Normal 0.0-0.9 [facility] Comment on above: Result Comment: IG% - Immature Granulocytes (promyelocytes, myelocytes and metamyelocytes) > 1% indicates that a LEFT SHIFT is Present. Performed By: #### L 500.2500, L100.0100 ####[facility] [address] [place], [address] Lymphocytes/100 WBC (Bld) 21.1 % Normal 19-41 [facility] Comment on above: Performed By: #### L 500.2500, L100.0100 ####[facility] [address] [place], [address] MCH (RBC) [Entitic mass] 29.5 pg Normal 27.0-32.0 [facility] Comment on above: Performed By: #### L 500.2500, L100.0100 ####[facility] [address] [place], [address] MCHC (RBC) [Mass/Vol] 32.8 g/dL Normal 32-36 [facility] Comment on above: Performed By: #### L 500.2500, L100.0100 ####[facility] [address] [place], [address] MCV (RBC) [Entitic vol] 90.1 fL Normal 80-94 [facility] Comment on above: Performed By: #### L 500.2500, L100.0100 ####[facility] [address] [place], [address] Monocytes/100 WBC (Bld) 6.3 % Normal 0-10 [facility] Comment on above: Performed By: #### L 500.2500, L100.0100 ####[facility] [address] [place], [address] Neutrophils/100 WBC (Bld) 67.9 % Normal 47-70 [facility] Comment on above: Performed By: #### L 500.2500, L100.0100 ####[facility] [address] [place], [address] Nucleated RBC (Bld) [#/Vol] 0 10*3/uL Normal 0-5 [facility] Comment on above: Performed By: #### L 500.2500, L100.0100 ####[facility] [address] [place], [address] Platelet mean volume (Bld) [Entitic vol] 10.3 fL Normal 6.2-12.0 [facility] Comment on above: Performed By: #### L 500.2500, L100.0100 ####[facility] [address] [place], [address] Platelets (Bld) [#/Vol] 198 10*3/uL Normal 150-450 [facility] Comment on above: Performed By: #### L 500.2500, L100.0100 ####[facility] [address] [place], [address] RBC (Bld) [#/Vol] 3.83 10*6/uL Low 4.6-6.2 [facility] Comment on above: Performed By: #### L 500.2500, L100.0100 ####[facility] [address] [place], [address] RDW SD 40.2 fl Normal 35.1-43.9 [facility] Comment on above: Performed By: #### L 500.2500, L100.0100 ####[facility] [address] [place], [address] WBC (Bld) [#/Vol] 7.1 10*3/uL Normal 4.4-11.0 [facility] Comment on above: Performed By: #### L 500.2500, L100.0100 ####[facility] [address] [place], [address] Discharge Instructionon 01-21 Discharge Instruction [facility] Medical Records Department [address] [place] [address] Instructions for Home/Discharge Instructions 02/17/25 1538 MR#: [id number] Acct: [id number] Name: HERMAN DOOLEY Rep #: [id number] : 1990 34 From: Lex Shannon MD PCP: Dr. Roman Ulrich MD Status:ADM IN Discharge Instructions DC O2, CPAP, BIPAP needs Home O2 Discharge instructions: No Dressing / Incision Discharge Activity: Return to Normal Activity and May Not Drive (while taking narcotic pain medications.) Dressing / Incision Call your doctor if you observe: Fever of 101 or Higher Follow Up Care Please Follow Up With: Lex Shannon MD When: Call [phone] for an appointment Test Results: Test results from this visit will be discussed in further detail at your follow-up appointment, if applicable. Discharge Plan Admission Admit Date/Time: 02/17/25 08:43 Primary Reason for Your Visit: cysto stent Attending Provider: Lex Shannon Primary Care Provider: Roman Ulrich Discharge Orders/Prescriptions Prescriptions: New ciprofloxacin HCl [Cipro] 500 mg tablet 500 mg PO BID Qty: 6 0RF oxycodone 5 mg tablet 5 mg PO Q6H PRN (Reason: pain) 3 Days Qty: 10 0RF Continued duloxetine 60 mg capsule,delayed release(DR/EC) 60 mg PO DAILY ondansetron 8 mg tablet,disintegrating 8 mg PO Q8H PRN (Reason: nausea and vomiting) Qty: 20 0RF oxycodone-acetaminophen 5-325 mg tablet 1 tab PO Q6H PRN PRN (Reason: Pain) 3 Days Qty: 12 0RF fluoxetine 40 mg capsule 40 mg PO DAILY gabapentin 800 mg tablet 800 mg PO TID buprenorphine-naloxone 8-2 mg film 2 ea sublingual DAILY No Action MAGIC MOUTH WASH (BMX) 180 mL suspension 10 ml PO 4X/DAY PRN (Reason: mouth pain) Qty: 180 1RF Rx Instructions: diphenhydramine 12.5 mg/5 mL oral liquid 60 mL; aluminum-mag hydroxide-simethicone 400 mg-400 mg- 40 mg/5 mL oral susp 60 mL; Lidocaine Viscous 2 % mucosal solution 60 mL; Per 180 mL Referrals / Follow Up: Lex Shannon MD [Med Staff - Active Staff, Urology] Roman Ulrich MD [Primary Care Provider, Medical] Disposition Disposition (needs filled in before D/C Order can be placed): Home, Self Care 02/17/25 1538 Lex Shannon MD CC: Dr. Roman Ulrich MD Signed Normal [facility] Emergency Department Summary on 02-17-2025 Emergency Department Summary [facility] Medical Records Department [address] [place] [address] Emergency Department Summary 02/17/25 MR#: [id number] Acct: [id number] Name: HERMAN DOOLEY Rep #: [id number] : 1990 34 From: Wallace Browne DO PCP: Dr. Roman Ulrich MD Status:PRE ER Location: ED HPI History of Present Illness Chief Complaint: Flank Pain Informant: patient Narrative Narrative: Patient is a 34-year-old male with history of schizophrenia and bipolar disorder. He was seen yesterday secondary to left-sided abdominal pain and was found to have a 4.5 mm stone in the left proximal ureter causing mild hydronephrosis. He did not have signs of urosepsis or acute kidney injury so he was discharged home on Percocet and Zofran. Patient states he has been taking his Percocet but his pain has not really improved despite doing so. Therefore with the persistent pain despite taking his prescribed medication he presents for reevaluation. [facility] Medical History Bipolar disorder Depression Anxiety Home Medications ???Medication ???Instructions ???Recorded ???Last Taken ???Type buprenorphine 8 mg-naloxone 2 mg 2 ea sublingual DAILY 05/07/24 Unk nown History sublingual film fluoxetine 40 mg capsule 40 mg PO DAILY 05/07/24 Unknown Hi story gabapentin 800 mg tablet 800 mg PO TID 05/07/24 Unknown His tory MAGIC MOUTH WASH (BMX) 180 mL 10 ml PO 4X/DAY PRN mouth pain Unknown Rx suspension #180 mL duloxetine 60 mg capsule,delayed 60 mg PO DAILY 02/01/25 Unknown Hi story release ondansetron 8 mg disintegrating 8 mg PO Q8H PRN nausea and 5 Unknown Rx tablet vomiting #20 tabs oxycodone-acetaminophen 5 mg-325 1 tab PO Q6H PRN PRN Pain 3 days 1 Unknown Rx mg tablet #12 TABLETS Allergy/AdvReac Type Severity Reaction Status Date / Time No Known Allergies Allergy Verified 02/17/25 06:35 Social History Smoking Status: Current every day smoker tobacco type: e-cigarettes Electronic Cigarette Use: with nicotine ROS ROS ED Constitutional Constitutional ED: Denies chills or fever(s) ENT ENT ED: Denies sore throat Cardiovascular Cardiovascular: Denies chest pain Respiratory/Chest Respiratory/Chest: Denies cough or dyspnea Gastrointestinal Gastrointestinal: Reports abdominal pain and nausea; Denies diarrhea or vomiting Genitourinary Genitourinary ED: Reports hematuria; Denies dysuria Musculoskeletal Musculoskeletal: Denies myalgias Integumentary Denies rash Neurologic Neurologic: Denies headache(s) Hematologic/Lymphatic Hematologic/Lymphatic: Denies easy bleeding or easy bruising EXAM Physical Exam Const Vital Signs: 02/17/25 06:36 Temperature 98.4 F Temperature Source Oral Pulse Rate 68 Respiratory Rate 18 Blood Pressure 147/97 H Blood Pressure Mean 113 Pulse Ox 100 Oxygen Delivery Method Room Air Positive well nourished and well developed General Appearance ED: well developed; Negative for pallor HEENT HEENT Narrative: Normocephalic atraumatic Eyes PERRL and EOMs intact bilaterally General Eye ED: Negative for scleral icterus Neck supple Resp normal respiratory effort and clear to auscultation bilaterally Cardio regular rate and regular rhythm Rate: other Other Details: Radial and carotid pulses are equal and symmetric GI non-distended and no masses GI Narrative: Abdomen is soft and nondistended with hypoactive bowel sounds. There is pain with palpation in the left lower quadrant without voluntary guarding or rigidity. This is the same location he reported pain yesterday when he was diagnosed with his kidney stone. No pulsatile mass. no peritoneal signs No organomegaly to suggest acute urinary retention Auscultation: hypoactive bowel sounds Palpation: soft Back/Spine Back/Spine Narrative: Positive left CVA pain noted Extremity normal to inspection Neuro oriented x3, CN's II-XII intact bilaterally and no sensory deficits noted Sensorium / Orientation: alert Motor Exam: strength 5/5 throughout Psych Psych Narrative: Patient has a flat affect Skin no rashes or lesions noted General Skin Exam: Negative for jaundice or pallor MDM MDM MDM Narrative Medical decision making narrative: Patient arrived to the ER hypertensive otherwise with stable vitals. His recent ER visit as well as labs and CT scan were reviewed. With the patient having intractable pain despite taking a proper pain medication and Percocet I will provide IV Toradol which he states helped the previous day as well as IV fluid. Repeat urine sample and basic labs will be obtained to assess for urosepsis versus acute kidney injury. I do not feel the need (more content not included)... Normal [facility] MR/POSTOP.ANEon 02-17-2025 MR/POSTOP.[facility] Medical Records Department [address] [place] [address] Anesthesia Postop Eval I 02/17/25 1558 MR#: [id number] Acct: [id number] Name: HERMAN DOOLEY Rep #: [id number] : 1990 34 From: Matthew Vidal CRNA PCP: Dr. Roman Ulrich MD Status:ADM IN Y Race: C Location: [facility] [id number] Anesthesia: Postop Eval I Current Vital Signs Temperature: 98.3 F Pulse Rate: 57 Blood Pressure: 109/75 Respiratory Rate: 16 Pulse Ox: 99 Assessment Airway patent: Yes Spontaneous unlabored respirations: Yes nausea: No Vomiting: No Anesthesia Complication: No Fluid Hydration Crystalloid volume administer (ml): 500 Total IV fluid infused: 500 Progress Note Anesthesia document: Postop Eval 1 completed: Yes 02/17/25 1600 Date Matthew Vidal EXPLOSIVE ORDNANCE HANDLER Cosigner Signature: Date CC: Signed Normal [facility] MR/[id number] 02-17-2025 [facility] Medical Records Department [address] [place] [address] Anesthesia Postop Eval II 02/17/25 1636 MR#: [id number] Acct: [id number] Name: HERMAN DOOLEY Rep #: [id number] : 1990 34 From: Matthew Vidal EXPLOSIVE ORDNANCE HANDLER PCP: Dr. Roman Ulrich MD Status:ADM IN Y Race: C Location: [place] [id number] Anesthesia Postop Eval I Sum Postop Eval Completion status Anesthesia document: Postop Eval 1 completed: Yes Anesthesia Postop Eval I Summary Anesthesia Postop Eval I Summary: Anesthesia Postop Eval I: Assessment Summary Airway patent Yes 02/17/25 15:58 EXPLOSIVE ORDNANCE HANDLER.TNES Spontaneous unlabored Yes 02/17/25 15:58 EXPLOSIVE ORDNANCE HANDLER.TNES respirations Mental status nausea No 02/17/25 15:58 EXPLOSIVE ORDNANCE HANDLER.TNES Vomiting No 02/17/25 15:58 EXPLOSIVE ORDNANCE HANDLER.TNES Anesthesia Postop Eval I: Fluid Summary Crystalloid volume administer 500 02/17/25 15:58 EXPLOSIVE ORDNANCE HANDLER.TNES (ml) Colloids volume administered ( ml) Blood Product volume administered (ml) Total IV fluid infused 500 02/17/25 15:58 EXPLOSIVE ORDNANCE HANDLER.TNES Anesthesia Postop Eval I: Summary Notes Anesthesia Complication No 02/17/25 15:58 EXPLOSIVE ORDNANCE HANDLER.TNES Anesthesia Complication Comment: Post-operative progress note Anesthesia: Postop Eval II Evaluation Mental status: Awake and Calm Pain Level: 0 nausea: No Vomiting: No 02/17/25 1637 Date Matthew Dockerybitt EXPLOSIVE ORDNANCE HANDLER Cosigner Signature: Date CC: Signed Normal [facility] Operative Reporton 5 Operative Report [facility] Medical Records Department [address] [place] [address] Operative Report 02/17/25 1546 MR#: [id number] Acct: [id number] Name: HERMAN DOOLEY Rep #: [id number] : 1990 34 From: Lex Shannon MD PCP: Dr. Roman Ulrich MD Status:ADM IN Location: [address] Operative Report (Standard) Operative Information Date of Procedure: 02/17/25 Pre-Operative Diagnosis: Left proximal ureteral calculi Post-Operative Diagnosis: The same Surgery/Procedure Performed: Cystoscopy and left stent placement national sales executive: No Type of Anesthesia: General RN Documented Start/Stop Times: Operation Date: 02/17/25 14:00 Case Time Into Pre-Op 02/17/25 13:03 Out of Pre-Op 02/17/25 15:28 Procedure Start Time: 15:40 Procedure Stop Time: 15:47 Select all DRAINS/GRAFTS/IMPLANTS that apply: Drains Drain details: left stent Estimated Blood Loss: 0 Specimen collected: No Description of surgery: Patient was taken back to the operating room after induction of anesthesia placed in dorsolithotomy position penis and testicles were prepped and draped in usual fashion within the bladder with a 21 Armenian rigid cystourethroscope cannulated the left ureteral orifice advanced a wire up past the left kidney stone up into the kidney and then over the wire I placed a stent on the left side pulled the wire and the stent coiled in the kidney bladder in good position patient acetic was reversed and taken back to PACU in good condition plan is to set him up for shockwave lithotripsy to treat the stone that was blocking the left kidney Surgical Findings: stent placed. Complications Complications: No Admit VTE Documentation VTE Present on Admission: No VTE Mechan Device Prophylaxis: SCD's VTE Pharm Prophylaxis ordered?: No 02/17/25 1542 Cosigner Signature (if applicable): CC: Dr. Lex Shannon MD; Dr. Roman Ulrich MD Signed Normal [facility] Urinalysis, Completeon 02-17 BACTERIA RARE Normal None Seen [facility] Comment on above: Order Comment: YANNICK CTOR TO SPECIFY Performed By: #### L 400.0001 ####[facility] [address] [place], [address] EPI,SQUAMOUS 0-5 SEEN Normal 0-5 [facility] Comment on above: Order Comment: YANNICK CTOR TO SPECIFY Performed By: #### L 400.0001 ####[facility] [address] [place], [address] Mucus Ql (Urine sed) RARE Normal [facility] Comment on above: Order Comment: YANNICK CTOR TO SPECIFY Performed By: #### L 400.0001 ####[facility] [address] [place], [address] RBC 10-25 SEEN Normal 0-5 [facility] Comment on above: Order Comment: YANNICK CTOR TO SPECIFY Performed By: #### L 400.0001 ####[facility] [address] [place], [address] WBC 0-5 SEEN Normal 0-5 [facility] Comment on above: Order Comment: YANNICK CTOR TO SPECIFY Performed By: #### L 400.0001 ####[facility] [address] [place], [address] Abdomen/Pelvis W IV Cont ONL Yon 02-16-2025 Abdomen/Pelvis W IV Cont ONLY [facility] Imaging Services [address] [place] [address] Abdomen/Pelvis W IV Cont ONLY MR#: [id number] Acct: [id number] Name: HERMAN DOOLEY Rep #: [id number] : 1990 M 34 From: Jacob sanchez MD PCP: Dr. Roman Ulrich MD Status: REG ER Study: Abdomen/Pelvis W IV Cont ONLY Date of Exam: Exam# [id number] Ordering Dr: Bob Polo MD ADDENDUM by Dr. Jacob Sauer MD on 02/16/25 at 1259 This is an addendum report. Mild left hydronephrosis due to a 4.5 mm calculus in the proximal portion of the left ureter. Reading Location: [id number] 02/16/25 1300 Date cc: Dr. Bob Polo MD; Dr. Roman Ulrich MD * Signed PROCEDURE: ABDOMEN/PELVIS W IV CONT ONLY 02/16/2025 REASON FOR EXAM: LEFT SIDED ABD PAIN Left lower quadrant pain with nausea and vomiting for 3 days. TECHNIQUE: Procedure Code: CTABDPELIV Modality: CT Procedure: ABDOMEN/PELVIS W IV CONT ONLY Coronal and Sagittal reconstruction series were provided. CONTRAST: Isovue-300 VOLUME: 100 mL One or more dose reduction techniques were used (e.g., Automated exposure control, adjustment of the mA and/or kV according to patient size, use of iterative reconstruction technique. RADIATION DOSE SUMMARY: CTDlvol: 11.5 mGy DLP: 343.52 mGycm COMPARISON: None FINDINGS: Lung bases: The lung bases are clear. The heart is nonenlarged. Liver: Minimal degree of central intrahepatic biliary ductal dilatation. Gallbladder: Unremarkable Spleen: Normal size. Pancreas: Normal size without evidence of mass surrounding inflammation or ductal dilation. Adrenals: Unremarkable Kidneys: Normal renal sizes. No hydronephrosis. Bladder: Unremarkable There is calcification of the vas deferens. This is seen in patients with the diabetes. Clinical correlation recommended. Bowel: Nonspecific bowel gas pattern. Fecal material is seen throughout the colon. Appendix: The appendix is not identified. There is no inflammatory process identified in the right lower quadrant to suggest appendicitis. Lymph nodes: Unremarkable. Vasculature: The abdominal aorta and IVC are normal. Peritoneum / Retroperitoneum: Unremarkable Bones: Unremarkable CT/Abdomen/Pelvis W IV Cont ONLY IMPRESSION: Minimal degree of intrahepatic biliary ductal dilatation. No evidence of gallstones. Calcification of the vas deferens. This is typically seen in patients with diabetes. Reading Location: [id number] CC: Dr. Bob Polo MD; Dr. Roman Ulrich MD Director Of Sleep: Signed Normal [facility] CBC W/Diff, Automatedon - Absolute Lymph 2.21 X10 3/uL Normal 0.83-4.51 [facility] Comment on above: Performed By: #### L 100.0100 #### [facility] [address] [place], [address] Absolute Neut 4.3 X10 3/uL Normal 2.0-7.7 [facility] Comment on above: Performed By: #### L 100.0100 #### [facility] [address] [place], [address] Basophils/100 WBC (Bld) 0.5 % Normal 0-1 [facility] Comment on above: Performed By: #### L 100.0100 #### [facility] [address] [place], [address] Eosinophils/100 WBC (Bld) 5.3 % High 0-5 [facility] Comment on above: Performed By: #### L 100.0100 #### [facility] [address] [place], [address] Erythrocyte distribution width (RBC) [Ratio] 12.0 % Normal 11.6-14.6 [facility] Comment on above: Performed By: #### L 100.0100 #### [facility] [address] [place], [address] Hematocrit (Bld) [Volume fraction] 38.2 % Low 40-54 [facility] Comment on above: Performed By: #### L 100.0100 #### [facility] [address] [place], [address] Hemoglobin (Bld) [Mass/Vol] 12.6 g/dL Low 13.0-16.5 [facility] Comment on above: Performed By: #### L 100.0100 #### [facility] [address] [place], [address] IG% 0.700 Normal 0.0-0.9 [facility] Comment on above: Result Comment: IG% - Immature Granulocytes (promyelocytes, myelocytes and metamyelocytes) > 1% indicates that a LEFT SHIFT is Present. Performed By: #### L 100.0100 #### [facility] [address] [place], [address] Lymphocytes/100 WBC (Bld) 29.8 % Normal 19-41 [facility] Comment on above: Performed By: #### L 100.0100 #### [facility] [address] [place], [address] MCH (RBC) [Entitic mass] 29.0 pg Normal 27.0-32.0 [facility] Comment on above: Performed By: #### L 100.0100 #### [facility] [address] [place], [address] MCHC (RBC) [Mass/Vol] 33.0 g/dL Normal 32-36 [facility] Comment on above: Performed By: #### L 100.0100 #### [facility] [address] [place], [address] MCV (RBC) [Entitic vol] 88.0 fL Normal 80-94 [facility] Comment on above: Performed By: #### L 100.0100 #### [facility] [address] [place], [address] Monocytes/100 WBC (Bld) 5.4 % Normal 0-10 [facility] Comment on above: Performed By: #### L 100.0100 #### [facility] [address] [place], [address] Neutrophils/100 WBC (Bld) 58.3 % Normal 47-70 [facility] Comment on above: Performed By: #### L 100.0100 #### [facility] [address] [place], [address] Nucleated RBC (Bld) [#/Vol] 0 10*3/uL Normal 0-5 [facility] Comment on above: Performed By: #### L 100.0100 #### [facility] [address] [place], [address] Platelet mean volume (Bld) [Entitic vol] 10.4 fL Normal 6.2-12.0 [facility] Comment on above: Performed By: #### L 100.0100 #### [facility] [address] [place], [address] Platelets (Bld) [#/Vol] 258 10*3/uL Normal 150-450 [facility] Comment on above: Performed By: #### L 100.0100 #### [facility] [address] [place], [address] RBC (Bld) [#/Vol] 4.34 10*6/uL Low 4.6-6.2 [facility] Comment on above: Performed By: #### L 100.0100 #### [facility] [address] [place], [address] RDW SD 38.9 fl Normal 35.1-43.9 [facility] Comment on above: Performed By: #### L 100.0100 #### [facility] [address] [place], [address] WBC (Bld) [#/Vol] 7.4 10*3/uL Normal 4.4-11.0 [facility] Comment on above: Performed By: #### L 100.0100 #### [facility] [address] [place], [address] Comprehensive Metabolic Prof ilon 02-16-2025 Albumin/Globulin [Mass ratio] 1.8 {ratio} Normal 0.9-2.4 [facility] Comment on above: Result Comment: AMENDED REPORT 02/16/251306 A/G previously reported as: 1.9 RATIO Performed By: #### L 500.4050 ####[facility] [address] [place], [place], [id number] Globulin (S) [Mass/Vol] 2.4 g/dL Normal 2.2-4.2 [facility] Comment on above: Result Comment: AMENDED REPORT 02/16/251306 GLOB previously reported as: 2.3 g/dL Performed By: #### L 500.4050 ####[facility] [address] [place], [address] T PROT 6.7 g/dL Normal 5.9-8.4 [facility] Comment on above: Result Comment: AMENDED REPORT 02/16/251306 T PROT previously reported as: 6.6 g/dL Performed By: #### L 500.4050 ####[facility] [address] [place], [id number] Emergency Department Summary on 02-16-2025 Emergency Department Summary [facility] Medical Records Department [address] [place] [address] Emergency Department Summary 02/16/25 MR#: [id number] Acct: [id number] Name: HERMAN DOOLEY Rep #: [id number] : 1990 34 From: Bob Polo MD PCP: Dr. Roman Ulrich MD Status:REG ER Location: ED HPI HPI - GI History of Present Illness Chief Complaint: Abd Pain Informant: patient and EMS Narrative Narrative: Patient is a 34-year-old male with a history of bipolar disorder and paranoid schizophrenia presenting with abdominal pain, diarrhea, and emesis. - Symptoms began 3d ago with n/v/d, with abdominal pain starting today. - Reports 5-10 episodes of watery diarrhea total since onset, with the last bowel movement 2 days ago. - Denies hematochezia or hematemesis. - Denies fever. - Denies chest pain. - Denies pain radiating to the back or testicles. - Denies any prior abdominal surgeries. States has history of kidney stones and some of this pain felt similar to that but different. - Taking gabapentin. PFSH PFSH Medical History Bipolar disorder Depression Anxiety Home Medications ???Medication [...] PO DAILY 02/01/25 Unknown Hi story release ondansetron 8 mg disintegrating 8 mg PO Q8H PRN nausea and 5 Unknown Rx tablet vomiting #20 tabs oxycodone-acetaminophen 5 mg-325 1 tab PO Q6H PRN PRN Pain 3 days 1 Unknown Rx mg tablet #12 TABLETS Allergy/AdvReac Type Severity Reaction Status Date / Time No Known Allergies Allergy Verified 02/16/25 11:42 Social History Smoking Status: Current every day smoker tobacco type: e-cigarettes Electronic Cigarette Use: with nicotine ROS ROS ED Constitutional Constitutional ED: Denies chills or fever(s) Eyes Eyes: Denies change in vision or diplopia ENT ENT ED: Denies rhinorrhea or sore throat Cardiovascular Cardiovascular: Denies chest pain or palpitations Respiratory/Chest Respiratory/Chest: Denies cough or dyspnea Gastrointestinal Gastrointestinal: Reports abdominal pain, diarrhea, nausea and vomiting; Denies hematemesis, hematochezia or melena Genitourinary Genitourinary ED: Denies dysuria or hematuria Musculoskeletal Musculoskeletal: Denies back pain or neck pain Integumentary Denies abscess or rash Neurologic Neurologic: Denies headache(s), paresthesias or weakness Psychiatric Psychiatric: Reports anxiety; Denies suicidal thoughts EXAM Physical Exam Const Vital Signs: 02/16/25 11:43 02/16/25 11:47 Temperature 98.8 F Temperature Source Oral Pulse Rate 54 L Respiratory Rate 18 Blood Pressure 128/85 H Blood Pressure Mean 99 Pulse Ox 100 Oxygen Delivery Method Room Air Positive well nourished and well developed Constitutional Narrative: Uncomfortable in mild painful distress General Appearance ED: well developed HEENT Reports moist mucous membranes normocephalic and atraumatic Eyes PERRL and EOMs intact bilaterally Neck full ROM and supple Resp normal respiratory effort and clear to auscultation bilaterally Cardio regular rate, regular rhythm and no murmurs GI non-distended GI Narrative: Tender left mid abdomen the left upper quadrant, nontender in the distal left lower quadrant. Auscultation: hypoactive bowel sounds Palpation: soft Back/Spine Back/Spine Narrative: Mild left CVA tenderness no rash normal inspection no swelling General Back: other FROM Extremity normal to inspection General Extremety ED: Negative for edema, pulses abnormal or tenderness General Extremity: Negative for edema or pulses abnormal Neuro oriented x3, CN's II-XII intact bilaterally and no sensory deficits noted Sensorium / Orientation: awake and alert Motor Exam: strength 5/5 throughout Psych Psych Narrative: Agitated and anxious but able to cooperate and follow commands Skin no rashes or lesions noted and no wounds MDM MDM MDM Narrative Medical decision making narrative: Considering possible GI etiologies for his left-sided abdominal pain, given that he has vomiting and diarrhea (more content not included)... Normal [facility] Urinalysis, Completeon 02-16 WBC 0-5 SEEN Normal 0-5 [facility] Comment on above: Order Comment: CLEAN CATCH Performed By: #### L 400.0001 #### [facility] [address] [place], [address] CA OX CRYSTAL RARE Normal [facility] Comment on above: Order Comment: CLEAN CATCH Performed By: #### L 400.0001 #### [facility] [address] [place], [address] RBC > 100 SEEN Normal 0-5 [facility] Comment on above: Order Comment: CLEAN CATCH Performed By: #### L 400.0001 #### [facility] [address] [place], [address] BACTERIA 0 SEEN Normal None Seen [facility] Comment on above: Order Comment: CLEAN CATCH Performed By: #### L 400.0001 #### [facility] [address] [place], [address] EPI,SQUAMOUS 0 SEEN Normal 0-5 [facility] Comment on above: Order Comment: CLEAN CATCH Performed By: #### L 400.0001 #### [facility] [address] [place], [address] Mucus Ql (Urine sed) 0 SEEN Normal [facility] Comment on above: Order Comment: CLEAN CATCH Performed By: #### L 400.0001 #### [facility] [address] [place], [address] Emergency Department Summary on 02-01-2025 Emergency Department Summary [facility] Medical Records Department [address] [place] [address] Emergency Department Summary 02/01/25 MR#: [id number] Acct: [id number] Name: HERMAN DOOLEY Rep #: [id number] : 1990 34 From: Wallace Browne DO [...] infectious and with this presents for evaluation. [facility] Medical History (Updated 02/01/25 @ 08:[address] Wallace Browne, ) Bipolar disorder Depression Anxiety Home Medications ???Medication [...] (Updated 10/30/24 @ 13:[address] Steven Calderon DO) Smoking Status: Current every day smoker [...] disorder and (more content not included)... Normal [facility] Alcohol, Blood (Medical)-Ser on 10-30-2024 SERUM ETOH < 10.1 Normal <=10.0 [facility] Comment on above: Result Comment: This test is for medical purposes only. The legal definition of intoxication varies according to local law. Performed By: #### L 501.9100, L500.2500, L505.5000, L100.0100 ####[facility] [address] [place], [address] Basic Metabolic Profile (BMP )on 10-30-2024 BUN/CRE 10.9 RATIO Normal 10-20 [facility] Comment on above: Performed By: #### L 501.9100, L500.2500, L505.5000, L100.0100 #### [facility] [address] [place], [address] Calcium [Mass/Vol] 9.2 mg/dL Normal 7.6-11.0 [facility] Comment on above: Performed By: #### L 501.9100, L500.2500, L505.5000, L100.0100 #### [facility] [address] [place], [address] Chloride [Moles/Vol] 104 mmol/L Normal 98-108 [facility] Comment on above: Performed By: #### L 501.9100, L500.2500, L505.5000, L100.0100 #### [facility] [address] [place], [address] CO2 [Moles/Vol] 28.3 mmol/L Normal 21.0-32.0 [facility] Comment on above: Performed By: #### L 501.9100, L500.2500, L505.5000, L100.0100 #### [facility] [address] [place], [address] Creatinine [Mass/Vol] 0.86 mg/dL Normal 0.70-1.20 [facility] Comment on above: Performed By: #### L 501.9100, L500.2500, L505.5000, L100.0100 #### [facility] [address] [place], [address] ECRCL 104.43 ml/min Normal 50-250 [facility] Comment on above: Performed By: #### L 501.9100, L500.2500, L505.5000, L100.0100 #### [facility] [address] [place], [address] GAP 11 Normal 5-15 [facility] Comment on above: Performed By: #### L 501.9100, L500.2500, L505.5000, L100.0100 #### [facility] [address] [place], [address] GFR/1.73 sq M.predicted among non-blacks MDRD (S/P/Bld) [Vol rate/Area] 117 mL/min/{1.73_m2} Normal >60 [facility] Comment on above: Result Comment: mL/m in/1.73m2 CKD-EPI Creatinine Equation (2020) Performed By: #### L 501.9100, L500.2500, L505.5000, L100.0100 #### [facility] [address] [place], [address] Glucose [Mass/Vol] 83 mg/dL Normal 70-99 [facility] Comment on above: Performed By: #### L 501.9100, L500.2500, L505.5000, L100.0100 #### [facility] [address] [place], [address] Potassium [Moles/Vol] 4.2 mmol/L Normal 3.3-5.1 [facility] Comment on above: Performed By: #### L 501.9100, L500.2500, L505.5000, L100.0100 #### [facility] [address] [place], [address] Sodium [Moles/Vol] 143 mmol/L Normal 133-145 [facility] Comment on above: Performed By: #### L 501.9100, L500.2500, L505.5000, L100.0100 #### [facility] [address] [place], [address] Urea nitrogen [Mass/Vol] 9 mg/dL Normal 4-19 [facility] Comment on above: Performed By: #### L 501.9100, L500.2500, L505.5000, L100.0100 #### [facility] [address] [place], [address] CBC W/Diff, Automatedon 10-20 Absolute Lymph 1.16 X10 3/uL Normal 0.83-4.51 [facility] Comment on above: Performed By: #### L 501.9100, L500.2500, L505.5000, L100.0100 #### [facility] [address] [place], [address] Absolute Neut 2.2 X10 3/uL Normal 2.0-7.7 [facility] Comment on above: Performed By: #### L 501.9100, L500.2500, L505.5000, L100.0100 #### [facility] [address] [place], [address] Basophils/100 WBC (Bld) 0.8 % Normal 0-1 [facility] Comment on above: Performed By: #### L 501.9100, L500.2500, L505.5000, L100.0100 #### [facility] [address] [place], [address] Eosinophils/100 WBC (Bld) 2.1 % Normal 0-5 [facility] Comment on above: Performed By: #### L 501.9100, L500.2500, L505.5000, L100.0100 #### [facility] [address] [place], [address] Erythrocyte distribution width (RBC) [Ratio] 12.5 % Normal 11.6-14.6 [facility] Comment on above: Performed By: #### L 501.9100, L500.2500, L505.5000, L100.0100 #### [facility] [address] [place], [address] Hematocrit (Bld) [Volume fraction] 39.7 % Low 40-54 [facility] Comment on above: Performed By: #### L 501.9100, L500.2500, L505.5000, L100.0100 #### [facility] [address] [place], [address] Hemoglobin (Bld) [Mass/Vol] 12.8 g/dL Low 13.0-16.5 [facility] Comment on above: Performed By: #### L 501.9100, L500.2500, L505.5000, L100.0100 #### [facility] [address] [place], [address] IG% 0.300 Normal 0.0-0.9 [facility] Comment on above: Result Comment: IG% - Immature Granulocytes (promyelocytes, myelocytes and metamyelocytes) > 1% indicates that a LEFT SHIFT is Present. Performed By: #### L 501.9100, L500.2500, L505.5000, L100.0100 #### [facility] [address] [place], [address] Lymphocytes/100 WBC (Bld) 30.9 % Normal 19-41 [facility] Comment on above: Performed By: #### L 501.9100, L500.2500, L505.5000, L100.0100 #### [facility] [address] [place], [address] MCH (RBC) [Entitic mass] 29.2 pg Normal 27.0-32.0 [facility] Comment on above: Performed By: #### L 501.9100, L500.2500, L505.5000, L100.0100 #### [facility] [address] [place], [address] MCHC (RBC) [Mass/Vol] 32.2 g/dL Normal 32-36 [facility] Comment on above: Performed By: #### L 501.9100, L500.2500, L505.5000, L100.0100 #### [facility] [address] [place], [address] MCV (RBC) [Entitic vol] 90.4 fL Normal 80-94 [facility] Comment on above: Performed By: #### L 501.9100, L500.2500, L505.5000, L100.0100 #### [facility] [address] [place], [address] Monocytes/100 WBC (Bld) 7.5 % Normal 0-10 [facility] Comment on above: Performed By: #### L 501.9100, L500.2500, L505.5000, L100.0100 #### [facility] [address] [place], [address] Neutrophils/100 WBC (Bld) 58.4 % Normal 47-70 [facility] Comment on above: Performed By: #### L 501.9100, L500.2500, L505.5000, L100.0100 #### [facility] [address] [place], [address] Nucleated RBC (Bld) [#/Vol] 0 10*3/uL Normal 0-5 [facility] Comment on above: Performed By: #### L 501.9100, L500.2500, L505.5000, L100.0100 #### [facility] [address] [place], [address] Platelet mean volume (Bld) [Entitic vol] 10.5 fL Normal 6.2-12.0 [facility] Comment on above: Performed By: #### L 501.9100, L500.2500, L505.5000, L100.0100 #### [facility] [address] [place], [address] Platelets (Bld) [#/Vol] 253 10*3/uL Normal 150-450 [facility] Comment on above: Performed By: #### L 501.9100, L500.2500, L505.5000, L100.0100 #### [facility] [address] [place], [address] RBC (Bld) [#/Vol] 4.39 10*6/uL Low 4.6-6.2 [facility] Comment on above: Performed By: #### L 501.9100, L500.2500, L505.5000, L100.0100 #### [facility] [address] [place], [address] RDW SD 41.8 fl Normal 35.1-43.9 [facility] Comment on above: Performed By: #### L 501.9100, L500.2500, L505.5000, L100.0100 #### [facility] [address] [place], [address] WBC (Bld) [#/Vol] 3.8 10*3/uL Low 4.4-11.0 [facility] Comment on above: Performed By: #### L 501.9100, L500.2500, L505.5000, L100.0100 #### [facility] [address] [place], [address] Emergency Department Summary on 10-30-2024 Emergency Department Summary [facility] Medical Records Department [address] [place] [address] Emergency Department Summary 10/30/24 MR#: [id number] Acct: [id number] Name: HERMAN DOOLEY Rep #: [id number] : 1990 33 From: Steven Calderon DO [...] Patient denies any visual or auditory hallucinations. [facility] Medical History (Updated 10/30/24 @ 16:07 by [...] intact bilaterally and no sensory deficits noted [place] Coma Scale: document GCS findings Spontaneous Obeys [...] was positiv (more content not included)... Normal [facility] Urine Drug Screen (VISTA)on 10-30-2024 AMPHETAMINES Positive Normal <1000 ng/mL [facility] Comment on above: Result Comment: If c onfirmation testing is needed, a separate order will be required to send out testing to the reference laboratory. Performed By: #### L 501.9100, L500.2500, L505.5000, L100.0100 ####[facility] [address] [place], [address] BARBITIURATES Negative Normal < 200 ng/mL [facility] Comment on above: Performed By: #### L 501.9100, L500.2500, L505.5000, L100.0100 ####[facility] [address] [place], [address] BENZODIAZIPINE Negative Normal < 200 ng/mL [facility] Comment on above: Performed By: #### L 501.9100, L500.2500, L505.5000, L100.0100 ####[facility] [address] [place], [address] BUP Ur Drug Scr Positive Normal < 200 ng/mL [facility] Comment on above: Result Comment: If c onfirmation testing is needed, a separate order will be required to send out testing to the reference laboratory. Performed By: #### L 501.9100, L500.2500, L505.5000, L100.0100 ####[facility] [address] [place], [address] COCAINE Negative Normal < 300 ng/mL [facility] Comment on above: Performed By: #### L 501.9100, L500.2500, L505.5000, L100.0100 ####[facility] [address] [place], [address] Fentanyl Negative Normal [facility] Comment on above: Performed By: #### L 501.9100, L500.2500, L505.5000, L100.0100 ####[facility] [address] [place], [address] METHADONE Negative Normal < 300 ng/mL [facility] Comment on above: Performed By: #### L 501.9100, L500.2500, L505.5000, L100.0100 ####[facility] [address] [place], [address] OPIATES Negative Normal < 300 ng/mL [facility] Comment on above: Performed By: #### L 501.9100, L500.2500, L505.5000, L100.0100 ####[facility] [address] [place], [address] OXYCODONE Negative Normal < 100 ng/mL [facility] Comment on above: Performed By: #### L 501.9100, L500.2500, L505.5000, L100.0100 ####[facility] [address] [place], [address] PCP Negative Normal < 25 ng/mL [facility] Comment on above: Performed By: #### L 501.9100, L500.2500, L505.5000, L100.0100 ####[facility] [address] [place], [address] THC Negative Normal < 50 ng/mL [facility] Comment on above: Performed By: #### L 501.9100, L500.2500, L505.5000, L100.0100 ####[facility] [address] [place], [address] Brain/Head without Contrasto n 05-07-2024 Brain/Head without Contrast [facility] [address] [place] [address] Brain/Head without Contrast MR#: [id number] Acct: [id number] Name: HERMAN DOOLEY Rep #: [id number] : 1990 M 33 From: Amari dawson MD PCP: Dr. Roman Ulrich MD Status: REG ER Study: Brain/Head without Contrast Date of Exam: 04/22 10/14 Exam# [id number] Ordering Dr: Enoch Mcneal MD [id number] EXAM: CT HEAD WITHOUT INTRAVENOUS CONTRAST CLINICAL [...] Enoch Mcneal MD; Dr. Roman Ulrich MD Director Of Sleep: Signed Normal [facility] Emergency Department Summary on 05-07-2024 Emergency Department Summary [facility] Medical Records Department [address] [place] [address] Emergency Department Summary 05/07/24 MR#: [id number] Acct: [id number] Name: HERMAN DOOLEY Rep #: [id number] : 1990 33 From: Enoch Mcneal MD [...] history, he does not take blood thinners. PFSH PFS Home Medications ???Medication ???Instructions ???Recorded ???Last Taken [...] I was going to write him for [place], but in review of his OARRS report, [...] Review Discuss (more content not included)... Normal [facility] Ribs Uni Min 3V w/PA Cheston 05-07-2024 Ribs Uni Min 3V w/PA Chest [facility] [address] [place] [address] Ribs Uni Min 3V w/PA Chest MR#: [id number] Acct: [id number] Name: HERMAN DOOLEY Rep #: [id number] : 1990 M 33 From: Amari dawson MD PCP: Dr. Roman Ulrich MD Status: REG ER Study: Ribs Uni Min 3V w/PA Chest Date of Exam: 05/07 Exam# [id number] Ordering Dr: Enoch Mcneal MD [id number] EXAM: XR LEFT RIBS AND AP CHEST, [...] Enoch Mcneal MD; Dr. Roman Ulrich MD Director Of Sleep: Signed Normal [facility] Soft Tissue Neck without Con gordon 05-07-2024 Soft Tissue Neck without Contr [facility] [address] [place], [place] [address] Soft Tissue Neck without Contr MR#: [id number] Acct: [id number] Name: HERMAN DOOLEY Rep #: [id number] : 1990 M 33 From: Amari dawson MD PCP: Dr. Roman Ulrich MD Status: REG ER Study: Soft Tissue Neck without Contr Date of Exam: 0 05/07/24 Exam# [id number] Ordering Dr: Enoch Mcneal MD [id number] EXAM: CT NECK WITHOUT INTRAVENOUS CONTRAST CLINICAL [...] Enoch Mcneal MD; Dr. Roman Ulrich MD Director Of Sleep: Signed Normal [facility] CORONAVIRUS GENOMEon 020 COVIDGENOM NOT DETECTED Normal NOT DETECTED [facility] Comment on above: Performed By: #### C OVGENO #### [facility] [address] [place] [address] [employer] - Yadira PERKINS [id number] Performed for [facility] [address] [place] [address] HEADING PCR Normal [facility] Comment on above: Performed By: #### C OVGENO #### [facility] [address] [place] [address] [employer] - Yadira PERKINS [id number] Performed for [facility] [address] [place] [address] A1Con 12-01-2019 Average glucose Estimated from glycated hemoglobin mass conc (Bld) 108 mg/dL Normal 68-125 [facility] Comment on above: Performed By: #### 1 7855-8 #### [facility] [address] [place] [address] [employer] - Yadira PERKINS [id number] HbA1c (Bld) [Mass fraction] 5.4 %A1C Normal 4.2-6.3 [facility] Comment on above: Performed By: #### 1 7855-8 #### [facility] [address] [place] [address] [employer] - Yadira PERKINS [id number] HbA1c (Bld) [Mass fraction] A1C INTERPRETATION %A1c (NGSP) Interpretation 3.8 - 6.4 Non-Diabetic Range 5.7 - 6.4 Prediabetic >6.5 Action Suggested The eAG (estimated average glucose) is an estimation of one?s average blood glucose level, calculated based on A1C test results, reported using the same units (mg/dL) seen on blood glucose meters. Normal [facility] Comment on above: Performed By: #### 1 7855-8 #### [facility] [address] [place] [address] Hi [employer] - Yadira HILLIA [id number] CBC with DIFFERENTIALon 11-20 Basophils (Bld) [#/Vol] 0.05 10*3/uL Normal <=0.70 [facility] Comment on above: Performed By: #### 5 7021-8 #### [facility] [facility] [address] [place] [address] Hi Lo Driver - Yadira Renee CLIA [id number] Basophils/100 WBC (Bld) 0.9 % Normal <=2.0 [facility] Comment on above: Performed By: #### 5 7021-8 #### [place] [address] Director - Yadira HILLIA [id number] Eosinophils (Bld) [#/Vol] 0.10 10*3/uL Normal <=0.70 [facility] Comment on above: Performed By: #### 5 7021-8 #### [place] [address] [place] [address] Hi Lo Driver - Yadira HILLIA [id number] Eosinophils/100 WBC (Bld) 1.8 % Normal <=10.0 [facility] Comment on above: Performed By: #### 5 7021-8 #### [place] [address] [place] [address] Hi Lo Driver - Yadira HILLIA [id number] Erythrocyte distribution width (RBC) [Entitic vol] 41.1 fL Normal 35.1-43.9 [facility] Comment on above: Performed By: #### 5 7021-8 #### [facility] [address] [place] [address] Hi Lo Driver - Yadira HILLIA [id number] Hematocrit (Bld) [Volume fraction] 42.2 % Normal 40.0-54.0 [facility] Comment on above: Performed By: #### 5 7021-8 #### [facility] [address] [place] [address] Hi Lo Driver - Yadira Renee CLIA [id number] Hemoglobin (Bld) [Mass/Vol] 14.3 g/dL Normal 14.0-18.0 [facility] Comment on above: Performed By: #### 5 7021-8 #### [address] [place] [address] Hi Lo Driver - Yadira Renee CLIA [id number] Immature granulocytes (Bld) [#/Vol] 0.01 10*3/uL Normal <=0.10 [facility] Comment on above: Performed By: #### 5 7021-8 #### [place] [address] Hi [employer] Driver - Yadira Renee CLIA [id number] Immature granulocytes/100 WBC (Bld) 0.20 % Normal <=1.50 [facility] Comment on above: Performed By: #### 5 7021-8 #### [place] [address] [employer] Driver - Yadira Renee CLIA [id number] Lymphocytes (Bld) [#/Vol] 1.84 10*3/uL Normal 1.20-3.40 [facility] Comment on above: Performed By: #### 5 7021-8 #### [place] [address] Hi [employer] Driver - Yadira Renee CLIA [id number] Lymphocytes/100 WBC (Bld) 33.6 % Normal 20.0-40.0 [facility] Comment on above: Performed By: #### 5 7021-8 #### [place] [address] Hi [employer] Driver - Yadira Renee CLIA [id number] MCH (RBC) [Entitic mass] 29.7 pg Normal 27.0-31.0 [facility] Comment on above: Performed By: #### 5 7021-8 #### [place] [address] Hi [employer] Driver - Yadira Renee CLIA [id number] MCHC (RBC) [Mass/Vol] 33.9 g/dL Normal 32.0-36.0 [facility] Comment on above: Performed By: #### 5 7021-8 #### [facility] [address] [place] [address] Hi Lo Driver - Yadira HILLIA [id number] MCV (RBC) [Entitic vol] 87.7 fL Normal 80.0-100.0 [facility] Comment on above: Performed By: #### 5 7021-8 #### [address] [place] [address] Hi Lo Driver - Yadira HILLIA [id number] Monocytes (Bld) [#/Vol] 0.39 10*3/uL Normal 0.10-0.60 [facility] Comment on above: Performed By: #### 5 7021-8 #### [address] [place] [address] Hi Lo Driver - Yadira HILLIA [id number] Monocytes/100 WBC (Bld) 7.1 % Normal <=8.0 [facility] Comment on above: Performed By: #### 5 7021-8 #### [address] [place] [address] Hi Lo Driver - Yadira HILLIA [id number] Neutrophils (Bld) [#/Vol] 3.09 10*3/uL Normal 1.40-6.50 [facility] Comment on above: Performed By: #### 5 7021-8 #### [address] [place] [address] Hi Lo Driver - Yadira HILLIA [id number] Neutrophils/100 WBC (Bld) 56.4 % Normal 50.0-70.0 [facility] Comment on above: Performed By: #### 5 7021-8 #### [address] [place] [address] Hi Lo Driver - Yadira HILLIA [id number] Nucleated RBC (Bld) [#/Vol] 0.00 10*3/uL Normal <=0.10 [facility] Comment on above: Performed By: #### 5 7021-8 #### [place] [address] [place] [address] Hi Lo Driver - Yadira PERKINS [id number] Platelet mean volume (Bld) [Entitic vol] 10.8 fL Normal 9.0-13.0 [facility] Comment on above: Performed By: #### 5 7021-8 #### [facility] [address] [place] [address] Hi Lo Driver - Yadira PERKINS [id number] Platelets (Bld) [#/Vol] 257 10*3/uL Normal 130-400 [facility] Comment on above: Performed By: #### 5 7021-8 #### [facility] [address] [place] [address] Hi Lo Driver - Yadira PERKINS [id number] RBC (Bld) [#/Vol] 4.81 10*6/uL Normal 4.00-6.30 [facility] Comment on above: Performed By: #### 5 7021-8 #### [facility] [address] [place] [address]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
--- OUTSIDE RECORDS SUMMARY | 2025-02-18 10:29 | XMS RPT_ITS | CCD ---
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 Role Phone Carlyle Edwards Unavailable Unavailable PROVIDER, UNKNOWN Unavailable Unavailable No, PCP Unavailable Unavailable KENISHA HUTCHISON Admitting Unavailable KENISHA HUTCHISON Primary Care Unavailable BELLE ECHEVARRIA Primary Care Unavailable ELMER CLEMENTE Admitting Unavailable ELMER CLEMENTE Consulting Unavailable ELMER CLEMENTE Attending Unavailable NONE, NONE Consulting Unavailable SANJUANITA STRONG Admitting Unavailable SANJUANITA STRONG Consulting Unavailable SANJUANITA STRONG Attending Unavailable NONE, NONE Consulting Unavailable [facility] Primary Care Unavailable Schwiger, Steven Attending Unavailable Schwiger, Steven Referring Unavailable [place] Unavailable Reodica, Enoch Attending Unavailable Reodica, Enoch Referring Unavailable Shiva, Lex Damon Attending Unavailable [place] Primary [facility] Unavailable Shiva, Lex Damon Admitting Unavailable [facility] Primary [facility] Unavailable ARIEL, JOSH Attending Unavailable GLIVAR, JOSH Referring Unavailable Bob Polo Attending Unavailable [place] Primary Care Unavailable [place] Unavailable Wallace Browne Attending Unavailable [...] )on 02-17-2025 BUN/CRE 14.0 RATIO Normal - [facility] Comment on above: Performed By: #### L 500.2500, L100.0100 ####[facility] [address] [place], [address] Calcium [Mass/Vol] 9.0 mg/dL Normal 7.6-11.0 [facility] Comment on above: Performed By: #### L 500.2500, L100.0100 ####[facility] [address] [place], [address] Chloride [Moles/Vol] 103 mmol/L Normal 98-108 [facility] Comment on above: Performed By: #### L 500.2500, L100.0100 ####[facility] [address] [place], [address] CO2 [Moles/Vol] 30.7 mmol/L Normal 21.0-32.0 [facility] Comment on above: Performed By: #### L 500.2500, L100.0100 ####[facility] [address] [place], [address] Creatinine [Mass/Vol] 0.94 mg/dL Normal 0.70-1.20 [facility] Comment on above: Performed By: #### L 500.2500, L100.0100 ####[facility] [address] [place], [address] ECRCL 97.74 ml/min Normal 50-250 [facility] Comment on above: Performed By: #### L 500.2500, L100.0100 ####[facility] [address] [place], [address] GAP 8 Normal 5-15 [facility] Comment on above: Performed By: #### L 500.2500, L100.0100 ####[facility] [address] [place], [address] GFR/1.73 sq M.predicted among non-blacks MDRD (S/P/Bld) [Vol rate/Area] 108 mL/min/{1.73_m2} Normal >60 [facility] Comment on above: Result Comment: mL/m in/1.73m2 CKD-EPI Creatinine Equation (2020) Performed By: #### L 500.2500, L100.0100 ####[facility] [address] [place], [address] Glucose [Mass/Vol] 123 mg/dL High 70-99 [facility] Comment on above: Performed By: #### L 500.2500, L100.0100 ####[facility] [address] [place], [address] Potassium [Moles/Vol] 3.9 mmol/L Normal 3.3-5.1 [facility] Comment on above: Performed By: #### L 500.2500, L100.0100 ####[facility] [address] [place], [address] Sodium [Moles/Vol] 142 mmol/L Normal 133-145 [facility] Comment on above: Performed By: #### L 500.2500, L100.0100 ####[facility] [address] [place], [address] Urea nitrogen [Mass/Vol] 13 mg/dL Normal 4-19 [facility] Comment on above: Performed By: #### L 500.2500, L100.0100 ####[facility] [address] [place], [address] CBC W/Diff, Automatedon 10-2 Absolute Lymph 1.51 X10 3/uL Normal 0.83-4.51 [facility] Comment on above: Performed By: #### L 500.2500, L100.0100 ####[facility] [address] [place], [address] Absolute Neut 4.9 X10 3/uL Normal 2.0-7.7 [facility] Comment on above: Performed By: #### L 500.2500, L100.0100 ####[facility] [address] [place], [address] Basophils/100 WBC (Bld) 0.6 % Normal 0-1 [facility] Comment on above: Performed By: #### L 500.2500, L100.0100 ####[facility] [address] [place], [address] Eosinophils/100 WBC (Bld) 3.5 % Normal 0-5 [facility] Comment on above: Performed By: #### L 500.2500, L100.0100 ####[facility] [address] [place], [address] Erythrocyte distribution width (RBC) [Ratio] 12.3 % Normal 11.6-14.6 [facility] Comment on above: Performed By: #### L 500.2500, L100.0100 ####[facility] [address] [place], [address] Hematocrit (Bld) [Volume fraction] 34.5 % Low 40-54 [facility] Comment on above: Performed By: #### L 500.2500, L100.0100 ####[facility] [address] [place], [address] Hemoglobin (Bld) [Mass/Vol] 11.3 g/dL Low 13.0-16.5 [facility] Comment on above: Performed By: #### L 500.2500, L100.0100 ####[facility] [address] [place], [address] IG% 0.600 Normal 0.0-0.9 [facility] Comment on above: Result Comment: IG% - Immature Granulocytes (promyelocytes, myelocytes and metamyelocytes) > 1% indicates that a LEFT SHIFT is Present. Performed By: #### L 500.2500, L100.0100 ####[facility] [address] [place], [address] Lymphocytes/100 WBC (Bld) 21.1 % Normal 19-41 [facility] Comment on above: Performed By: #### L 500.2500, L100.0100 ####[facility] [address] [place], [address] MCH (RBC) [Entitic mass] 29.5 pg Normal 27.0-32.0 [facility] Comment on above: Performed By: #### L 500.2500, L100.0100 ####[facility] [address] [place], [address] MCHC (RBC) [Mass/Vol] 32.8 g/dL Normal 32-36 [facility] Comment on above: Performed By: #### L 500.2500, L100.0100 ####[facility] [address] [place], [address] MCV (RBC) [Entitic vol] 90.1 fL Normal 80-94 [facility] Comment on above: Performed By: #### L 500.2500, L100.0100 ####[facility] [address] [place], [address] Monocytes/100 WBC (Bld) 6.3 % Normal 0-10 [facility] Comment on above: Performed By: #### L 500.2500, L100.0100 ####[facility] [address] [place], [address] Neutrophils/100 WBC (Bld) 67.9 % Normal 47-70 [facility] Comment on above: Performed By: #### L 500.2500, L100.0100 ####[facility] [address] [place], [address] Nucleated RBC (Bld) [#/Vol] 0 10*3/uL Normal 0-5 [facility] Comment on above: Performed By: #### L 500.2500, L100.0100 ####[facility] [address] [place], [address] Platelet mean volume (Bld) [Entitic vol] 10.3 fL Normal 6.2-12.0 [facility] Comment on above: Performed By: #### L 500.2500, L100.0100 ####[facility] [address] [place], [address] Platelets (Bld) [#/Vol] 198 10*3/uL Normal 150-450 [facility] Comment on above: Performed By: #### L 500.2500, L100.0100 ####[facility] [address] [place], [address] RBC (Bld) [#/Vol] 3.83 10*6/uL Low 4.6-6.2 [facility] Comment on above: Performed By: #### L 500.2500, L100.0100 ####[facility] [address] [place], [address] RDW SD 40.2 fl Normal 35.1-43.9 [facility] Comment on above: Performed By: #### L 500.2500, L100.0100 ####[facility] [address] [place], [address] WBC (Bld) [#/Vol] 7.1 10*3/uL Normal 4.4-11.0 [facility] Comment on above: Performed By: #### L 500.2500, L100.0100 ####[facility] [address], [address] Discharge Instructionon 01-21 Discharge Instruction [facility] Medical Records Department [address] [place] [address] Instructions for Home/Discharge Instructions 02/17/25 1538 MR#: [id number] Acct: [id number] Name: HERMAN DOOLEY Rep #: [id number] : 1990 34 From: Lex Shannon MD [...] Follow Up Care Please Follow Up With: Lxe Shannon MD When: Call [phone] for an appointment Test Results: Test results [...] CC: Dr. Roman Ulrich MD Signed Normal [facility] Emergency Department Summary on 02-17-2025 Emergency Department Summary [facility] Medical Records Department [address] [place] [address] Emergency Department Summary 02/17/25 MR#: [id number] Acct: [id number] Name: HERMAN DOOLEY Rep #: [id number] : 1990 34 From: Wallace Browne DO [...] his prescribed medication he presents for reevaluation. [facility] Medical History Bipolar disorder Depression Anxiety Home [...] the need (more content not included)... Normal [facility] MR/POSTOP.ANEon 02-17-2025 MR/POSTOP.[facility] Medical Records Department [address] [place] [address] Anesthesia Postop Eval I 02/17/25 1558 MR#: [id number] Acct: [id number] Name: HERMAN DOOLEY Rep #: [id number] : 1990 34 From: Matthew Vidal CRNA PCP: Dr. Roman Ulrich MD Status:ADM IN Y Race: C Location: [facility] [id number] Anesthesia: Postop Eval I Current Vital Signs Temperature: 98.3 F Pulse Rate: 57 Blood Pressure: 109/75 Respiratory Rate: 16 Pulse Ox: 99 Assessment Airway patent: Yes Spontaneous unlabored respirations: Yes nausea: No Vomiting: No Anesthesia Complication: No Fluid Hydration Crystalloid volume administer (ml): 500 Total IV fluid infused: 500 Progress Note Anesthesia document: Postop Eval 1 completed: Yes 02/17/25 1600 Date Matthew Vidal VIDEO CONFERENCE SPECIALIST Cosigner Signature: Date CC: Signed Normal [facility] MR/[id number] 02-17-2025 [facility] Medical Records Department [address] [place] [address] Anesthesia Postop Eval II 02/17/25 1636 MR#: [id number] Acct: [id number] Name: HERMAN DOOLEY Rep #: [id number] : 1990 34 From: Matthew Vidal VIDEO CONFERENCE SPECIALIST PCP: Dr. Roman Ulrich MD Status:ADM IN Y Race: C Location: [place] [id number] Anesthesia Postop Eval I Sum Postop Eval Completion status Anesthesia document: Postop Eval 1 completed: Yes Anesthesia Postop Eval I Summary Anesthesia Postop Eval I Summary: Anesthesia Postop Eval I: Assessment Summary Airway patent Yes 02/17/25 15:58 VIDEO CONFERENCE SPECIALIST.TNES Spontaneous unlabored Yes 02/17/25 15:58 VIDEO CONFERENCE SPECIALIST.TNES respirations Mental status nausea No 02/17/25 15:58 VIDEO CONFERENCE SPECIALIST.TNES Vomiting No 02/17/25 15:58 VIDEO CONFERENCE SPECIALIST.TNES Anesthesia Postop Eval I: Fluid Summary Crystalloid volume administer 500 02/17/25 15:58 VIDEO CONFERENCE SPECIALIST.TNES (ml) Colloids volume administered ( ml) Blood Product volume administered (ml) Total IV fluid infused 500 02/17/25 15:58 VIDEO CONFERENCE SPECIALIST.TNES Anesthesia Postop Eval I: Summary Notes Anesthesia Complication No 02/17/25 15:58 VIDEO CONFERENCE SPECIALIST.TNES Anesthesia Complication Comment: Post-operative progress note Anesthesia: Postop Eval II Evaluation Mental status: Awake and Calm Pain Level: 0 nausea: No Vomiting: No 02/17/25 1637 Date Matthew Dockerybitt VIDEO CONFERENCE SPECIALIST Cosigner Signature: Date CC: Signed Normal [facility] Operative Reporton 5 Operative Report [facility] Medical Records Department [address] [place] [address] Operative Report 02/17/25 1546 MR#: [id number] Acct: [id number] Name: HERMAN DOOLEY Rep #: [id number] : 1990 34 From: Lex Shannon MD PCP: Dr. Roman Ulrich MD Status:ADM IN Location: [address] Operative Report (Standard) Operative Information Date of Procedure: 02/17/25 Pre-Operative Diagnosis: Left proximal ureteral calculi Post-Operative Diagnosis: The same Surgery/Procedure Performed: Cystoscopy and left stent placement media relations associate: No Type of Anesthesia: General RN Documented [...] fashion within the bladder with a 21 German rigid cystourethroscope cannulated the left ureteral orifice [...] MD; Dr. Roman Ulrich MD Signed Normal [facility] Urinalysis, Completeon 02-17 BACTERIA RARE Normal None Seen [facility] Comment on above: Order Comment: YANNICK CTOR TO SPECIFY Performed By: #### L 400.0001 ####[facility] [address] [place], [address] EPI,SQUAMOUS 0-5 SEEN Normal 0-5 [facility] Comment on above: Order Comment: YANNICK CTOR TO SPECIFY Performed By: #### L 400.0001 ####[facility] [address] [place], [address] Mucus Ql (Urine sed) RARE Normal [facility] Comment on above: Order Comment: YANNICK CTOR TO SPECIFY Performed By: #### L 400.0001 ####[facility] [address] [place], [address] RBC 10-25 SEEN Normal 0-5 [facility] Comment on above: Order Comment: YANNICK CTOR TO SPECIFY Performed By: #### L 400.0001 ####[facility] [address] [place], [address] WBC 0-5 SEEN Normal 0-5 [facility] Comment on above: Order Comment: YANNICK CTOR TO SPECIFY Performed By: #### L 400.0001 ####[facility] [address] [place], [address] Abdomen/Pelvis W IV Cont ONL Yon 02-16-2025 Abdomen/Pelvis W IV Cont ONLY [facility] Imaging Services [address] [place] [address] Abdomen/Pelvis W IV Cont ONLY MR#: [id number] Acct: [id number] Name: HERMAN DOOLEY Rep #: [id number] : 1990 M 34 From: Jacob sanchez MD PCP: Dr. Roman Ulrich MD Status: REG ER Study: Abdomen/Pelvis W IV Cont ONLY Date of Exam: Exam# [id number] Ordering Dr: Bob Polo MD ADDENDUM by Dr. Jacob Sauer MD on 02/16/25 at 1259 This is an addendum report. Mild left hydronephrosis due to a 4.5 mm calculus in the proximal portion of the left ureter. Reading Location: [facility]-F 02/16/25 1300 Date cc: Dr. Bob Polo MD; Dr. Roman Urlich MD * Signed PROCEDURE: ABDOMEN/PELVIS W IV [...] seen in patients with diabetes. Reading Location: [id number] CC: Dr. Bob Polo MD; Dr. Roman Ulrich MD Tax Analyst: Signed Normal [facility] CBC W/Diff, Automatedon - Absolute Lymph 2.21 X10 3/uL Normal 0.83-4.51 [facility] Comment on above: Performed By: #### L 100.0100 #### [facility] [address] [place], [address] Absolute Neut 4.3 X10 3/uL Normal 2.0-7.7 [facility] Comment on above: Performed By: #### L 100.0100 #### [facility] [address] [place], [address] Basophils/100 WBC (Bld) 0.5 % Normal 0-1 [facility] Comment on above: Performed By: #### L 100.0100 #### [facility] [address] [place], [address] Eosinophils/100 WBC (Bld) 5.3 % High 0-5 [facility] Comment on above: Performed By: #### L 100.0100 #### [facility] [address] [facility] [place], [address] Erythrocyte distribution width (RBC) [Ratio] 12.0 % Normal 11.6-14.6 [facility] Comment on above: Performed By: #### L 100.0100 #### [facility] [address] [place], [address] Hematocrit (Bld) [Volume fraction] 38.2 % Low 40-54 [facility] Comment on above: Performed By: #### L 100.0100 #### [facility] [address] [place], [address] Hemoglobin (Bld) [Mass/Vol] 12.6 g/dL Low 13.0-16.5 [facility] Comment on above: Performed By: #### L 100.0100 #### [facility] [address] [facility] [place], [address] IG% 0.700 Normal 0.0-0.9 [facility] Comment on above: Result Comment: IG% - Immature Granulocytes (promyelocytes, myelocytes and metamyelocytes) > 1% indicates that a LEFT SHIFT is Present. Performed By: #### L 100.0100 #### [facility] [address] [facility] [place], [address] Lymphocytes/100 WBC (Bld) 29.8 % Normal 19-41 [facility] Comment on above: Performed By: #### L 100.0100 #### [facility] [address] [facility] [place], [address] MCH (RBC) [Entitic mass] 29.0 pg Normal 27.0-32.0 [facility] Comment on above: Performed By: #### L 100.0100 #### [facility] [address] [place], [address] MCHC (RBC) [Mass/Vol] 33.0 g/dL Normal 32-36 [facility] Comment on above: Performed By: #### L 100.0100 #### [facility] [address] [place], [address] MCV (RBC) [Entitic vol] 88.0 fL Normal 80-94 [facility] Comment on above: Performed By: #### L 100.0100 #### [facility] [address] [place], [address] Monocytes/100 WBC (Bld) 5.4 % Normal 0-10 [facility] Comment on above: Performed By: #### L 100.0100 #### [facility] [address] [place], [address] Neutrophils/100 WBC (Bld) 58.3 % Normal 47-70 [facility] Comment on above: Performed By: #### L 100.0100 #### [facility] [address] [place], [address] Nucleated RBC (Bld) [#/Vol] 0 10*3/uL Normal 0-5 [facility] Comment on above: Performed By: #### L 100.0100 #### [facility] [address] [place], [address] Platelet mean volume (Bld) [Entitic vol] 10.4 fL Normal 6.2-12.0 [facility] Comment on above: Performed By: #### L 100.0100 #### [facility] [address] [place], [address] Platelets (Bld) [#/Vol] 258 10*3/uL Normal 150-450 [facility] Comment on above: Performed By: #### L 100.0100 #### [facility] [address] [place], [address] RBC (Bld) [#/Vol] 4.34 10*6/uL Low 4.6-6.2 [facility] Comment on above: Performed By: #### L 100.0100 #### [facility] [address] [place], [address] RDW SD 38.9 fl Normal 35.1-43.9 [facility] Comment on above: Performed By: #### L 100.0100 #### [facility] [address] [place], [address] WBC (Bld) [#/Vol] 7.4 10*3/uL Normal 4.4-11.0 [facility] Comment on above: Performed By: #### L 100.0100 #### [facility] [address] [place], [address] Comprehensive Metabolic Prof ilon 02-16-2025 Albumin/Globulin [Mass ratio] 1.8 {ratio} Normal 0.9-2.4 [facility] Comment on above: Result Comment: AMENDED REPORT 02/16/251306 A/G previously reported as: 1.9 RATIO Performed By: #### L 500.4050 ####[facility] [address] [place], [place], [address] Globulin (S) [Mass/Vol] 2.4 g/dL Normal 2.2-4.2 [facility] Comment on above: Result Comment: AMENDED REPORT 02/16/251306 GLOB previously reported as: 2.3 g/dL Performed By: #### L 500.4050 ####[facility] [address] [place], [address] T PROT 6.7 g/dL Normal 5.9-8.4 [facility] Comment on above: Result Comment: AMENDED REPORT 02/16/251306 T PROT previously reported as: 6.6 g/dL Performed By: #### L 500.4050 ####[facility] [address] [place], [address] Emergency Department Summary on 02-16-2025 Emergency Department Summary [facility] Medical Records Department [address] [place] [address] Emergency Department Summary 02/16/25 MR#: [id number] Acct: [id number] Name: HERMAN DOOLEY Rep #: [id number] : 1990 34 From: Bob Polo MD [...] and diarrhea (more content not included)... Normal [facility] Urinalysis, Completeon 02-16 WBC 0-5 SEEN Normal 0-5 [facility] Comment on above: Order Comment: CLEAN CATCH Performed By: #### L 400.0001 #### [facility] [address] [place], [address] CA OX CRYSTAL RARE Normal [facility] Comment on above: Order Comment: CLEAN CATCH Performed By: #### L 400.0001 #### [facility] [address] [place], [address] RBC > 100 SEEN Normal 0-5 [facility] Comment on above: Order Comment: CLEAN CATCH Performed By: #### L 400.0001 #### [facility] [address] [place], [address] BACTERIA 0 SEEN Normal None Seen [facility] Comment on above: Order Comment: CLEAN CATCH Performed By: #### L 400.0001 #### [facility] [address] [place], [address] EPI,SQUAMOUS 0 SEEN Normal 0-5 [facility] Comment on above: Order Comment: CLEAN CATCH Performed By: #### L 400.0001 #### [facility] [address] [place], [address] Mucus Ql (Urine sed) 0 SEEN Normal [facility] Comment on above: Order Comment: CLEAN CATCH Performed By: #### L 400.0001 #### [facility] [address] [place], [address] Emergency Department Summary on 02-01-2025 Emergency Department Summary [facility] Medical Records Department [address] [place] [address] Emergency Department Summary 02/01/25 MR#: [id number] Acct: [id number] Name: HERMAN DOOLEY Rep #: [id number] : 1990 34 From: Wallace Browne DO [...] infectious and with this presents for evaluation. [facility] Medical History (Updated 02/01/25 @ 08:18 by [...] disorder and (more content not included)... Normal [facility] Alcohol, Blood (Medical)-Ser on 10-30-2024 SERUM ETOH < 10.1 Normal <=10.0 [facility] Comment on above: Result Comment: This test is for medical purposes only. The legal definition of intoxication varies according to local law. Performed By: #### L 501.9100, L500.2500, L505.5000, L100.0100 ####[facility] [address] [place], [address] Basic Metabolic Profile (BMP )on 10-30-2024 BUN/CRE 10.9 RATIO Normal 10-20 [facility] Comment on above: Performed By: #### L 501.9100, L500.2500, L505.5000, L100.0100 #### [facility] [address] [place], [address] Calcium [Mass/Vol] 9.2 mg/dL Normal 7.6-11.0 [facility] Comment on above: Performed By: #### L 501.9100, L500.2500, L505.5000, L100.0100 #### [facility] [address] [place], [address] Chloride [Moles/Vol] 104 mmol/L Normal 98-108 [facility] Comment on above: Performed By: #### L 501.9100, L500.2500, L505.5000, L100.0100 #### [facility] [address] [place], [address] CO2 [Moles/Vol] 28.3 mmol/L Normal 21.0-32.0 [facility] Comment on above: Performed By: #### L 501.9100, L500.2500, L505.5000, L100.0100 #### [facility] [address] [place], [address] Creatinine [Mass/Vol] 0.86 mg/dL Normal 0.70-1.20 [facility] Comment on above: Performed By: #### L 501.9100, L500.2500, L505.5000, L100.0100 #### [facility] [address] [place], [address] ECRCL 104.43 ml/min Normal 50-250 [facility] Comment on above: Performed By: #### L 501.9100, L500.2500, L505.5000, L100.0100 #### [facility] [address] [place], [address] GAP 11 Normal 5-15 [facility] Comment on above: Performed By: #### L 501.9100, L500.2500, L505.5000, L100.0100 #### [facility] [address] [place], [address] GFR/1.73 sq M.predicted among non-blacks MDRD (S/P/Bld) [Vol rate/Area] 117 mL/min/{1.73_m2} Normal >60 [facility] Comment on above: Result Comment: mL/m in/1.73m2 CKD-EPI Creatinine Equation (2020) Performed By: #### L 501.9100, L500.2500, L505.5000, L100.0100 #### [facility] [address] [place], [address] Glucose [Mass/Vol] 83 mg/dL Normal 70-99 [facility] Comment on above: Performed By: #### L 501.9100, L500.2500, L505.5000, L100.0100 #### [facility] [address] [place], [address] Potassium [Moles/Vol] 4.2 mmol/L Normal 3.3-5.1 [facility] Comment on above: Performed By: #### L 501.9100, L500.2500, L505.5000, L100.0100 #### [facility] [address] [place], [address] Sodium [Moles/Vol] 143 mmol/L Normal 133-145 [facility] Comment on above: Performed By: #### L 501.9100, L500.2500, L505.5000, L100.0100 #### [facility] [address] [place], [address] Urea nitrogen [Mass/Vol] 9 mg/dL Normal 4-19 [facility] Comment on above: Performed By: #### L 501.9100, L500.2500, L505.5000, L100.0100 #### [facility] [address] [place], [address] CBC W/Diff, Automatedon 10-20 Absolute Lymph 1.16 X10 3/uL Normal 0.83-4.51 [facility] Comment on above: Performed By: #### L 501.9100, L500.2500, L505.5000, L100.0100 #### [facility] [address] [place], [address] Absolute Neut 2.2 X10 3/uL Normal 2.0-7.7 [facility] Comment on above: Performed By: #### L 501.9100, L500.2500, L505.5000, L100.0100 #### [facility] [address] [place], [address] Basophils/100 WBC (Bld) 0.8 % Normal 0-1 [facility] Comment on above: Performed By: #### L 501.9100, L500.2500, L505.5000, L100.0100 #### [facility] [address] [place], [address] Eosinophils/100 WBC (Bld) 2.1 % Normal 0-5 [facility] Comment on above: Performed By: #### L 501.9100, L500.2500, L505.5000, L100.0100 #### [facility] [address] [place], [address] Erythrocyte distribution width (RBC) [Ratio] 12.5 % Normal 11.6-14.6 [facility] Comment on above: Performed By: #### L 501.9100, L500.2500, L505.5000, L100.0100 #### [facility] [address] [place], [address] Hematocrit (Bld) [Volume fraction] 39.7 % Low 40-54 [facility] Comment on above: Performed By: #### L 501.9100, L500.2500, L505.5000, L100.0100 #### [facility] [address] [place], [address] Hemoglobin (Bld) [Mass/Vol] 12.8 g/dL Low 13.0-16.5 [facility] Comment on above: Performed By: #### L 501.9100, L500.2500, L505.5000, L100.0100 #### [facility] [address] [place], [address] IG% 0.300 Normal 0.0-0.9 [facility] Comment on above: Result Comment: IG% - Immature Granulocytes (promyelocytes, myelocytes and metamyelocytes) > 1% indicates that a LEFT SHIFT is Present. Performed By: #### L 501.9100, L500.2500, L505.5000, L100.0100 #### [facility] [address] [place], [address] Lymphocytes/100 WBC (Bld) 30.9 % Normal 19-41 [facility] Comment on above: Performed By: #### L 501.9100, L500.2500, L505.5000, L100.0100 #### [facility] [address] [place], [address] MCH (RBC) [Entitic mass] 29.2 pg Normal 27.0-32.0 [facility] Comment on above: Performed By: #### L 501.9100, L500.2500, L505.5000, L100.0100 #### [facility] [address] [place], [address] MCHC (RBC) [Mass/Vol] 32.2 g/dL Normal 32-36 [facility] Comment on above: Performed By: #### L 501.9100, L500.2500, L505.5000, L100.0100 #### [facility] [address] [place], [address] MCV (RBC) [Entitic vol] 90.4 fL Normal 80-94 [facility] Comment on above: Performed By: #### L 501.9100, L500.2500, L505.5000, L100.0100 #### [facility] [address] [place], [address] Monocytes/100 WBC (Bld) 7.5 % Normal 0-10 [facility] Comment on above: Performed By: #### L 501.9100, L500.2500, L505.5000, L100.0100 #### [facility] [address] [place], [address] Neutrophils/100 WBC (Bld) 58.4 % Normal 47-70 [facility] Comment on above: Performed By: #### L 501.9100, L500.2500, L505.5000, L100.0100 #### [facility] [address] [place], [address] Nucleated RBC (Bld) [#/Vol] 0 10*3/uL Normal 0-5 [facility] Comment on above: Performed By: #### L 501.9100, L500.2500, L505.5000, L100.0100 #### [facility] [address] [place], [address] Platelet mean volume (Bld) [Entitic vol] 10.5 fL Normal 6.2-12.0 [facility] Comment on above: Performed By: #### L 501.9100, L500.2500, L505.5000, L100.0100 #### [facility] [address] [place], [address]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 FINDINGS: Right shoulder [...] Signed by: Elmer Yancey MD Technologist: CARMEN [facility] Encounters Encounter Date Encounter Type Care Provider Facility Start: 02-17-2025 Evaluation and manag ement of inpatient Lex Shannon Facility:[facility] Start: 02-16-2025 End: 02-16-2025 Emergency department patient visit Bob Polo Facility:[facility] Start: 02-01-2025 End: 02-01-2025 Emergency department patient visit [facility] Facility:[facility] Start: 10-30-2024 End: 10-30-2024 Emergency department patient visit [facility] Facility:[facility] Start: 05-12-2024 ambulatory [facility] Facility:[facility] Start: 05-07-2024 End: 05-08-2024 Emergency department patient visit [facility] Facility:[facility] Start: 03-14-2020 End: 03-15-2020 Patient encounter procedure [facility] Facility:[facility] Start: 12-03-2019 Encounter for genera l adult medical examination without abnormal findings [facility] Start: 12-01-2019 End: 12-02-2019 Patient encounter procedure SANJUANITA STRONG Facility:[facility] Start: 04-13-2019 End: 04-17-2019 Patient encounter procedure KENISHA [facility] Start: 03-27-2018 Emergency department patient visit Carlyle Edwards [facility] Payers Date Payer Category Payer Unknown [id number] 2024 Self-pay 2019 Unknown [id number] 1990 Unknown [id number] 2.16.8 [id number] 1990 Unknown [id number] 2.16. [id number] 1990 Unknown [id number] 2.16.8 [id number] 1990 Unknown [id number] 2.16.8 [id number] Unknown Unknown [id number] 2.16.8 [id number] Unknown [id number] 2.16.8 [id number] Unknown [id number] 2.16.8 [id number] Unknown [id number] 2.16.8 [id number] Unknown [id number] 2.16.8 [id number] Unknown [id number] 2.16.8 [id number] Worker's Compensation Clinical Note 02-17-2025 Note Date & Type Note Facility 02-17-2025 Note [facility] Medical Records Department [address] [place] [id number] History Physical Exam 02/17/25714 MR#: [id number] Acct: [id number] Name: HERMAN DOOLEY Rep #: [id number] : 1990 34 From: Lex Shannon MD [...] treat the kidney stone. N.p.o. for now [facility] Medical History Bipolar disorder Depression Anxiety [...] % (Auto) 67.9, Lymph % (Auto) 21.1, [place] % (Auto) 6.3, Eos % (Auto) 3.5, [...] Shannon MD; Dr. Roman Ulrich MD Signed [facility] Summary Purpose Family History No Family [...] section and content) DATE CREATED AUTHOR 04/02/2018 [facility] DATE CREATED AUTHOR AUTHOR'S ORGANIZ ATION 11/05/2018 [facility] DATE CREATED AUTHOR AUTHOR'S ORGANIZ ATION 04/17/2019 [facility] DATE CREATED AUTHOR AUTHOR'S ORGANIZ ATION 06/23/2019 [facility] DATE CREATED AUTHOR AUTHOR'S ORGANIZ ATION 03/18/2020 [facility] DATE CREATED AUTHOR AUTHOR'S ANTONIETA ATION 02/17/2025 [facility] FOR RECORDS PERTAINING TO PATIENTS [...] BE BASED ON THE PRIMARY CLINICAL RECORDS. [facility] [employer] [facility]. provides no warranty or guarantee of the accuracy or completeness of information in this document.
== END 2025-02-18 07:50 | disposition home or self-care (01) ==
LOC: ED 07:20 → SDC 07:39 → ACINP 07:41 → ED 08:42 → MS3 15:37
PROVIDERS: Admitting Provider Urology; Emergency Provider Emergency Medicine; PCP Family Medicine; Visit Provider Urology
PROC: (CPT 52332; principal; 2025-02-17 13:50)
DX: N13.2 Hydronephrosis with renal and ureteral calculous obstruction (principal); F20.0 Paranoid schizophrenia; F31.9 Bipolar disorder, unspecified; F41.9 Anxiety disorder, unspecified; Z79.899 Other long term (current) drug therapy; F17.290 Nicotine dependence, other tobacco product, uncomplicated
CPT/HCPCS: 52332; 00910; C1769; C2617; 76000; 80048; 81001; 85025; 96361; 96374; 96375; 96376; 99221; 99283; A4216; G0378; J2405